=== PATIENT | female | born 1955 | race Caucasian/White ===

== ENCOUNTER → 2020-08-24 10:56 | Outpatient (CLI) | payer MEDICARE, SELFPAY ==
--- NOTE | 2020-08-24 11:00 | ART_ITS ---
Reason For Study: PAD Procedure A bilateral lower extremity continuous wave Doppler with analog waveform analysis,segmental pressures,and ankle brachial indexes without exercise. Left Segmental Pressures Left brachial= 141mmHg. Left posterior tibial artery = 165mmHg. Left dorsalis pedis artery = 166mmHg. Left digit = 92 mmHg. The left dorsalis pedis waveforms are triphasic. The left posterior tibial artery waveforms are triphasic. Right Segmental Pressures Right brachial= 147mmHg. Right posterior tibial artery = 168mmHg. Right dorsalis pedis artery = 168mmHg. Right digit = 69 mmHg. The right dorsalis pedis waveforms are triphasic. The right posterior tibial artery waveforms are triphasic. Indices The right ankle brachial index by the dorsalis pedis is 1.14. The right ankle brachial index by the posterior tibial artery is 1.14. The right digital-brachial index is .47. The left ankle brachial index by the posterior tibial artery is 1.12. The left ankle brachial index by the dorsalis pedis is 1.13. The left digital-brachial index is .63. Interpretation Summary Triphasic Doppler waveforms are noted at ankle level bilaterally. Pulse-volume recordings are diminished at digital level bilaterally, but satisfactory at low-thigh, calf, and ankle levels bilaterally. Resting ankle-brachial indices are normal bilaterally. The right digital-brachial index is moderately diminished. The left digital-brachial index is mildy diminished. Arterial flow appears to be normal at yusuf level bilaterally. There is evidence of moderate, distal, small-vessel arterial occlusive disease at digital level on the right. The is evidence of mild, distal, small-vessel arterial occlusive disease at digital level on the left. Ordering Physician: Rob Randhawa Performed By: KYLEE JUAREZ Judy
== END ==
PROVIDERS: PCP Family Medicine; Referring Provider Podiatrist; Visit Provider Podiatrist
DX: I73.9 Peripheral vascular disease, unspecified (principal)
CPT/HCPCS: 93923

== ENCOUNTER → 2021-12-04 | Outpatient (CLI) | payer MEDICARE, SELFPAY ==
[2021-12-04 15:29] LABS: Absolute Lymphocyte Count 2.22 X10^3/uL (0.83-4.51); Absolute Neutrophil Count 7.3 X10^3/uL (2.0-7.7); Basophil# 0.04 X10^3/uL; Basophil% 0.4 % (0-1); Eosinophil# 0.21 X10^3/uL; Hematocrit 41.4 % (37-47); Lymphocyte # 2.22 X10^3/ul (0.83-4.51); Lymphocyte % 21.3 % (19-41); Mean Corp Hgb Conc 33.8 g/dL (32-36); Mean Corpuscular Hgb 30.9 pg (27.0-32.0); Mean Corpuscular Volume 91.4 fL (81-99); Monocyte# 0.59 X10^3/uL; Monocyte% 5.7 % (0-10); NRBC Flagged by Analyzer 0 % (0-5); Neutrophil # 7.31 X10^3/uL (2.7-7.7); Neutrophil % 70.1 % (47-70); Platelet Count 309 K/mm3 (150-450); RBC Distribution Width SD 40.3 fl (35.1-43.9); Red Blood Count 4.53 M/mm3 (4.2-5.4); White Blood Count 10.4 K/mm3 (4.4-11.0)
[2021-12-04 15:38] LABS: Vitamin B12 734 pg/mL (211-911)
[2021-12-04 15:43] LABS: ALB/GLOB Ratio 1.2 RATIO (0.9-2.4); AST(SGOT) 23 U/L (15-37); Alanine Aminotransfer ALT/SGPT 37 U/L (13-56); Albumin, Serum 4.2 g/dL (3.2-5.0); Alkaline Phosphatase 84 U/L (45-117); Anion Gap 10 (5-15); BUN 14 mg/dL (7-18); BUN/Creat Ratio 16.9 RATIO (10-20); Calcium,Total 9.3 mg/dL (8.5-10.1); Chloride 105 mmol/L (98-107); Cholesterol 167 mg/dL (200); Creatinine, Serum 0.83 mg/dL (0.55-1.02); EST Glomerular Filtration Rate 73 mL/min (>60); Est Glom Filt Rate - Afr Amer 88 mL/min (>60); Ferritin 41 ng/mL (8-252); Globulin 3.5 g/dL (2.2-4.2); Glucose 107 mg/dL (74-106); High Density Lipoprotein 67 mg/dL; Potassium 4.1 mmol/L (3.5-5.1); Protein, Total 7.7 g/dL (6.4-8.2); Sodium Level 140 mmol/L (136-145); Thyroid Stim Hormone (TSH) 1.76 uIU/mL (0.358-3.74); Triglycerides 259 mg/dL; Very Low Density Lipoprotein 52 mg/dL (5-40)
[2021-12-06 23:10] LABS: Hemoglobin A1c 6.4 % (3.8-5.6)
== END | disposition home or self-care (01) ==
LOC: MTLAB 12:45
PROVIDERS: PCP Family Medicine; Referring Provider Family Medicine; Visit Provider Family Medicine
DX: E11.9 Type 2 diabetes mellitus without complications (principal)
CPT/HCPCS: 36415; 80053; 80061; 82607; 82728; 83036; 84443; 85025

== ENCOUNTER → 2022-05-28 | Outpatient (CLI) | payer MEDICARE, SELFPAY ==
[2022-05-28 15:27] LABS: Absolute Lymphocyte Count 1.93 X10^3/uL (0.83-4.51); Absolute Neutrophil Count 5.3 X10^3/uL (2.0-7.7); Basophil# 0.06 X10^3/uL; Basophil% 0.7 % (0-1); Eosinophil# 0.44 X10^3/uL; Eosinophils% 5.3 % (0-5); Hematocrit 42.8 % (37-47); Hemoglobin 13.6 g/dL (12.0-15.0); Lymphocyte # 1.93 X10^3/ul (0.83-4.51); Lymphocyte % 23.4 % (19-41); Mean Corp Hgb Conc 31.8 g/dL (32-36); Mean Corpuscular Hgb 30.6 pg (27.0-32.0); Mean Corpuscular Volume 96.2 fL (81-99); Mean Platelet Vol. 9.9 fl (6.2-12.0); Monocyte# 0.52 X10^3/uL; Monocyte% 6.3 % (0-10); NRBC Flagged by Analyzer 0 % (0-5); Neutrophil # 5.27 X10^3/uL (2.7-7.7); Neutrophil % 64.1 % (47-70); Platelet Count 332 K/mm3 (150-450); RBC Distribution Width CV 12.3 % (11.6-14.6); RBC Distribution Width SD 43.8 fl (35.1-43.9); Red Blood Count 4.45 M/mm3 (4.2-5.4); White Blood Count 8.2 K/mm3 (4.4-11.0)
[2022-05-28 15:45] LABS: Ferritin 47 ng/mL (8-252)
== END | disposition home or self-care (01) ==
LOC: MFPLAB 11:47
PROVIDERS: PCP Family Medicine; Referring Provider Family Medicine; Visit Provider Family Medicine
DX: E61.1 Iron deficiency (principal)
CPT/HCPCS: 36415; 82728; 85025

== ENCOUNTER → 2022-08-28 | Outpatient (CLI) | payer MEDICARE, SELFPAY ==
[2022-08-28 18:08] LABS: Erythrocyte Sedimentation Rate 11 mm/hr (0-30)
[2022-08-28 18:11] LABS: Absolute Lymphocyte Count 1.88 X10^3/uL (0.83-4.51); Absolute Neutrophil Count 5.2 X10^3/uL (2.0-7.7); Basophil# 0.04 X10^3/uL; Basophil% 0.5 % (0-1); Eosinophil# 0.21 X10^3/uL; Eosinophils% 2.7 % (0-5); Hematocrit 42.9 % (37-47); Hemoglobin 13.8 g/dL (12.0-15.0); Lymphocyte # 1.88 X10^3/ul (0.83-4.51); Lymphocyte % 24.1 % (19-41); Mean Corp Hgb Conc 32.2 g/dL (32-36); Mean Corpuscular Hgb 31.1 pg (27.0-32.0); Mean Corpuscular Volume 96.6 fL (81-99); Mean Platelet Vol. 9.9 fl (6.2-12.0); Monocyte# 0.49 X10^3/uL; Monocyte% 6.3 % (0-10); NRBC Flagged by Analyzer 0 % (0-5); Neutrophil # 5.16 X10^3/uL (2.7-7.7); Neutrophil % 66.1 % (47-70); Platelet Count 324 K/mm3 (150-450); RBC Distribution Width CV 12.3 % (11.6-14.6); RBC Distribution Width SD 44.1 fl (35.1-43.9); Red Blood Count 4.44 M/mm3 (4.2-5.4); White Blood Count 7.8 K/mm3 (4.4-11.0)
[2022-08-28 18:46] LABS: Rheumatoid Factor < 10.0 IU/mL (<15)
[2022-08-30 12:22] LABS: CCP IgG Antibodies 5 units (0-19)
[2022-09-04 11:09] LABS: ANTINUCLEAR ANTIBODIES DIRECT Negative (Negative)
== END | disposition home or self-care (01) ==
PROVIDERS: PCP Family Medicine; Referring Provider Family Medicine; Visit Provider Family Medicine
DX: R53.83 Other fatigue (principal)
CPT/HCPCS: 36415; 85025; 85652; 86038; 86140; 86200; 86225; 86235; 86431

== ENCOUNTER → 2022-10-24 | Outpatient (CLI) | payer MEDICARE, SELFPAY ==
--- NOTE | 2022-10-24 12:03 | RAD_ITS ---
INDICATION: PAIN EXAMINATION/TECHNIQUE: X-RAY - RIGHT XR Ankle Min 3 Views 3 VIEWS COMPARISON: FINDINGS: SOFT TISSUES: No soft tissue swelling or gas. No radiopaque foreign body. BONES/JOINTS: Mild plantar calcaneal spurring. No acute fracture or subluxation.. Normal alignment. Preservation of the joint space.. No sclerotic or destructive changes observed. RAD/Ankle min 3 Views IMPRESSION: Mild plantar calcaneal spurring. Electronically Signed: Handy Davidson MD, MEG at 18:46 EDT ,
--- NOTE | 2022-10-24 12:52 | VDLE_ITS ---
Reason For Study: Pain right leg RIGHT LEFT GSV is normal. CFV is compressible, spontaneous, phasic, CFV is compressible, spontaneous, phasic, competent, and demonstrates normal competent and demonstrates normal augmentation. augmentation. FV is compressible, spontaneous, phasic, competent and demonstrates normal augmentation. POP V is compressible, spontaneous, phasic, competent and demonstrates normal augmentation. T/P Trunk is compressible. PTV is compressible. RT PerV is compressible. Procedure This is a venous duplex using B-mode, color flow and spectral Doppler. Exam performed in department. A preliminary report was called and/or faxed to [facility]. VL/Venous Duplex US, Unilateral Interpretation Summary There is no evidence of right lower extremity deep vein thrombosis. Right great saphenous vein appears patent and compressible segmentally. Normal flow patterns left common f emoral vein Ordering Physician: Brandi Tolliver Referring Physician: Ashley Greene Performed By: Elizabeth Jimenez RVT
== END | disposition home or self-care (01) ==
LOC: CVS 12:01
PROVIDERS: PCP Family Medicine; Referring Provider Nurse Practitioner Family; Visit Provider Nurse Practitioner Family
DX: M25.571 Pain in right ankle and joints of right foot (principal); M79.604 Pain in right leg
CPT/HCPCS: 73610; 93971

== ENCOUNTER → 2022-10-31 | Outpatient (CLI) | payer MEDICARE, SELFPAY ==
--- NOTE | 2022-10-31 15:19 | RAD_ITS ---
INDICATION: pain, injury EXAMINATION/TECHNIQUE: X-RAY - RIGHT XR Tibia/Fibula 2 Views 2 VIEWS COMPARISON: FINDINGS: SOFT TISSUES: No soft tissue swelling or gas. No radiopaque foreign body. BONES/JOINTS: No acute fracture or subluxation.. Normal alignment. Preservation of the joint space.. No sclerotic or destructive changes observed. RAD/Tibia & Fibula 2 Views IMPRESSION: Negative. Electronically Signed: Chandra Smith MD at 2:14 EDT ,
== END | disposition home or self-care (01) ==
PROVIDERS: PCP Family Medicine; Referring Provider Nurse Practitioner Family; Visit Provider Nurse Practitioner Family
DX: M79.604 Pain in right leg (principal)
CPT/HCPCS: 73590

== ENCOUNTER → 2022-11-25 | Outpatient (CLI) | payer MEDICARE, SELFPAY ==
[2022-11-25 15:14] LABS: Ferritin 89 ng/mL (8-252)
== END | disposition home or self-care (01) ==
PROVIDERS: PCP Family Medicine; Referring Provider Internal Medicine Pulmonary Disease; Visit Provider Internal Medicine Pulmonary Disease
DX: R53.83 Other fatigue (principal); Z86.2 Personal history of diseases of the blood and blood-forming organs and certain disorders involving the immune mechanism
CPT/HCPCS: 36415; 82728

== ENCOUNTER → 2022-12-16 | Outpatient (CLI) | payer MEDICARE, SELFPAY ==
--- NOTE | 2022-12-16 13:55 | ART_ITS ---
Reason For Study: Bi-lateral PVD Procedure A bilateral lower extremity continuous wave Doppler with analog waveform analysis,segmental pressures,and ankle brachial indexes without exercise. Performed w/ Raynaud's protocol. Left Segmental Pressures Left brachial= 126mmHg. Left posterior tibial artery = 152mmHg. Left dorsalis pedis artery = 144mmHg. Left digit = 104 mmHg. The left posterior tibial artery waveforms are triphasic. The left dorsalis pedis waveforms are triphasic. Right Segmental Pressures Right brachial= 122mmHg. Right posterior tibial artery = 152mmHg. Right dorsalis pedis artery = 149mmHg. Right digit = 112 mmHg. The right posterior tibial artery waveforms are triphasic. The right dorsalis pedis waveforms are triphasic. Indices The right ankle brachial index by the posterior tibial artery is 1.21. The right ankle brachial index by the dorsalis pedis is 1.18. The right digital-brachial index is 0.89. The left ankle brachial index by the posterior tibial artery is 1.21. The left ankle brachial index by the dorsalis pedis is 1.14. The left digital-brachial index is 0.83. VL/Lower Ext Art Exam w/ Exercise Interpretation Summary Right ROYAL 1.21, normal. TBI and Doppler/PVR waveforms of the right leg normal a t rest. Right lower extremity digits with abnormal response to cold immersion Left ROYAL 1.21, normal. TBI and Doppler/PVR waveforms of the left leg normal at rest. Left lower extremity digits with abnormal response to cold immersion Ordering Physician: Lety Lai Referring Physician: RENATE JAMA MD Performed By: Andrea Echavarria T
== END | disposition home or self-care (01) ==
PROVIDERS: PCP Family Medicine; Referring Provider Physician Assistant; Visit Provider Physician Assistant
DX: I73.9 Peripheral vascular disease, unspecified (principal)
CPT/HCPCS: 93924

== ENCOUNTER → 2022-12-26 | Outpatient (CLI) | payer MEDICARE, SELFPAY ==
[2022-12-26 11:25] LABS: Hemoglobin A1c 6.3 % (3.8-5.6)
[2022-12-26 11:29] LABS: ALB/GLOB Ratio 1.1 RATIO (0.9-2.4); AST(SGOT) 22 U/L (15-37); Alanine Aminotransfer ALT/SGPT 37 U/L (13-56); Albumin, Serum 3.8 g/dL (3.2-5.0); Alkaline Phosphatase 67 U/L (45-117); Anion Gap 5 (5-15); BUN 14 mg/dL (7-18); Calcium,Total 8.9 mg/dL (8.5-10.1); Chloride 110 mmol/L (98-107); Cholesterol 180 mg/dL (200); Creatinine, Serum 0.87 mg/dL (0.55-1.02); EST Glomerular Filtration Rate 68 mL/min (>60); Est Glom Filt Rate - Afr Amer 83 mL/min (>60); Globulin 3.6 g/dL (2.2-4.2); Glucose 107 mg/dL (74-106); High Density Lipoprotein 79 mg/dL; Potassium 3.9 mmol/L (3.5-5.1); Protein, Total 7.4 g/dL (6.4-8.2); Sodium Level 140 mmol/L (136-145); Triglycerides 104 mg/dL; Very Low Density Lipoprotein 21 mg/dL (5-40)
[2022-12-26 11:35] LABS: Ferritin 78 ng/mL (8-252)
[2022-12-26 11:35] LABS: Microalbumin,Random Urine < 5.0 mg/L (NO RANGE EST.)
== END | disposition home or self-care (01) ==
LOC: LAB 10:29
PROVIDERS: PCP Family Medicine; Referring Provider Family Medicine; Visit Provider Family Medicine
DX: E11.9 Type 2 diabetes mellitus without complications (principal); E61.1 Iron deficiency
CPT/HCPCS: 36415; 80053; 80061; 82043; 82570; 82728; 83036

== ENCOUNTER → 2023-03-27 | Outpatient (CLI) | payer MEDICARE, SELFPAY ==
[2023-03-27 18:09] LABS: Ferritin 99 ng/mL (8-252)
== END | disposition home or self-care (01) ==
LOC: MTLAB 14:21
PROVIDERS: PCP Family Medicine; Referring Provider Internal Medicine Pulmonary Disease; Visit Provider Internal Medicine Pulmonary Disease
DX: R53.83 Other fatigue (principal); Z86.2 Personal history of diseases of the blood and blood-forming organs and certain disorders involving the immune mechanism
CPT/HCPCS: 36415; 82728

== ENCOUNTER 2023-06-05 14:47 | Outpatient (CLI) | payer SELFPAY ==
--- NOTE | 2023-06-05 14:53 | CT_ITS ---
STUDY: CT CHEST WITHOUT CONTRAST REASON FOR EXAM: Female, 67 years old. FAM HX HEART DISEASE OVERREAD ONLY RADIATION DOSAGE (If Supplied By Facility): CTDIvol = ( 12.19 ) mGy, DLP = ( 219.42 ) mGycm TECHNIQUE: Transaxial imaging was performed without the administration of intravenous contrast material. Individualized dose optimization techniques were used for this CT. COMPARISON: No relevant priors. FINDINGS: CHEST The lungs are normal. There is no demonstrated pleural abnormality. Normal heart and pericardium. Normal mediastinum. Normal hilar regions. Normal unenhanced pulmonary arteries. Normal aorta arch and descending thoracic aorta. Normal osseous structures. There is no demonstrated abnormality of the visualized upper abdomen. CT/Limited Chest CT Cardiac Only IMPRESSION: Normal unenhanced CT chest examination. Electronically Signed: Marshal Benitez MD at 9:48 EST ,
--- OUTSIDE RECORDS SUMMARY | 2023-06-05 15:17 | XMS RPT_ITS | CCD ---
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 0 Active Problems Active Problems Problem Classification Problem Date Documented Da te Episodic/Chronic Anxiety disorders (13 sources) Generalized anxiety disorder; Translations: [Generalized anxiety disorder] 10-28-2017 Chronic Diabetes mellitus without complication (17 sources) Type 2 diabetes mellitus without complication; Translations: [Type 2 diabetes mellitus without complications] Onset: 10-04-2010 Chronic Genitourinary symptoms and ill-defined conditions (13 sources) Incontinence; Translations: [Mixed incontinence] Onset: 06-29-2021 06-29-2021 Chronic Headache; including migraine (15 sources) Migraine; Translations: [Migraine, unspecified, not intractable, without status migrainosus] Onset: 05-24-2016 05-24-2016 Chronic Menopausal disorders (1 source) Atrophic vaginitis; Translations: [Postmenopausal atrophic vaginitis] Chronic Other circulatory disease (13 sources) Raynaud's disease; Translations: [Raynaud's syndrome without gangrene] Onset: 05-26-2018 05-26-2018 Chronic Other inflammatory condition of skin (13 sources) Rosacea; Translations: [Rosacea, unspecified] Onset: 05-24-2016 05-24-2016 Chronic Other nutritional; endocrine; and metabolic disorders (13 sources) Obese class I; Translations: [Obesity, unspecified] Onset: 12-17-2018 12-17-2018 Chronic Other screening for suspected conditions (not mental disorders or infectious disease) (2 sources) Patient encounter status; Translations: [Encounter for screening mammogram for malignant neoplasm of breast] Episodic Thyroid disorders (13 sources) Goiter; Translations: [Iodine-deficiency related diffuse (endemic) goiter] Onset: 12-20-2010 12-20-2010 Chronic Past or Other Problems Problem Classification Problem Date Documented Da te Episodic/Chronic Residual codes; unclassified (13 sources) Statin declined; Translations: [Procedure and treatment not carried out because of patient's decision for unspecified reasons] Onset: 05-22-2021 05-22-2021 Episodic Spondylosis; intervertebral disc disorders; other back problems (13 sources) Brachial radiculitis; Translations: [Radiculopathy, cervical region] Onset: 03-25-2013 07-18-2020 Episodic Results Test Name Value Interpretation Reference Range Facil ity Vital Signs Date Time Vital Sign Value Performing Clinician Faci lity 06-18-2022 15:49-0500 Body height 166.5 cm Amena Torres MD Work Phone: [facility] 06-18-2022 15:49-0500 Body weight 94.53 kg Amena Torres MD Work Phone: [facility] 06-18-2022 15:49-0500 Diastolic blood pressure 84 mm[Hg] Amena Torres MD Work Phone: [facility] 06-18-2022 15:49-0500 Systolic blood pressure 146 mm[Hg] Amena Torres MD Work Phone: [facility] Encounters Encounter Date Encounter Type Care Provider Facility Start: 05-28-2023 ambulatory Pratik Canseco MD Work Phone: [facility] Start: 04-14-2023 Telephone encounter Amena varela MD Work Phone: OB/Gynecology Procedures Date Procedure Procedure Detail Performing Clinician Start: 06-20-2021 Mammography Toño Canseco MD Work Phone: Start: 04-18-2021 Colonoscopy Toño Canseco MD Work Phone: Start: 03-25-2021 Adult depression screening assessment Pratik Canseco MD Work Phone: Plan of Treatment Date Care Activity Detail Author Start: 04-18-[address] [facility] Start: 04-18-2031 COLORECTAL CANCER SCREENING COLORECTAL CANCER SCREENING [facility] Start: 04-18-2031 Screening for malign ant neoplasm of colon [facility] Start: 03-11-2023 ANNUAL PCP TEAM CELL EFFICIENCY SUPERVISOR YVONNE DISEASE VISIT ANNUAL PCP TEAM CHRONIC DISEASE VISIT [facility] Start: 02-07-2023 Covid-19 Vaccine () Covid-19 Vaccine () [facility] Start: 02-07-2023 Influenza vaccination Influenza Vacc ine (#1) [facility] Start: 06-21-2022 ANNUAL PCP TEAM CELL EFFICIENCY SUPERVISOR YVONNE DISEASE VISIT ANNUAL PCP TEAM CHRONIC DISEASE VISIT [facility] Start: 06-21-2022 BP CONTROLLED (<130/80) BP CONTROLLE D (<130/80) [facility] Start: 06-20-[address] [facility] Start: 06-20-2022 Screening for malign ant neoplasm of breast Mammogram Screening [facility] Start: 06-09-2022 ADVANCE DIRECTIVE DISCUSSION ADVANCE DIRECTIVE DISCUSSION [facility] Start: 06-09-2022 DEPRESSION ASSESSMENT DEPRESSION ASS ESSMENT [facility] Start: 05-01-2022 Glaucoma screening Dilated Retinal E xam [facility] Start: 05-01-2022 Hepatitis C antibody , confirmatory test DILATED RETINAL EXAM [facility] Start: 03-26-2022 3 comp foot exam completed DIABETIC FOOT EXAM [facility] Start: 03-26-2022 BP CONTROLLED (<130/80) BP CONTROLLE D (<130/80) [facility] Start: 03-26-2022 Diabetic foot examination Diabetic F oot Exam [facility] Start: 03-26-2022 PNEUMOCOCCAL: 65+ (2 - PCV) PNEUMOCOCCAL: 65+ (2 - PCV) [facility] Immunizations Immunization Date Immunization Notes Care Provider Fa bridget 04-02-2022 influenza virus vaccine, unspecified formulation Amena Torres MD Work Phone: [facility] 03-09-2013 influenza virus vaccine, unspecified formulation Pratik Canseco MD Work Phone: [facility] 10-04-2010 pneumococcal polysaccharide vaccine, 23 valent Pratik Canseco MD Work Phone: [facility] 03-21-2010 influenza virus vaccine, unspecified formulation Pratik Canseco MD Work Phone: [facility] Work Phone: 12-26-2009 tetanus toxoid, redu fran diphtheria toxoid, and acellular pertussis vaccine, adsorbed Pratik Canseco MD Work Phone: [facility] Work Phone: Payers Date Payer Category Payer Unknown [facility] [employer] O [id number] 2022-Present [phone] [address] [place] [address] O [id number] 2022 Unknown [id number] 2019 Medicare UHC AARP MEDICAR E UHC AARP MEDICARE HMO [id number] 2019-Present [phone] [address] [address] [place] [address] [facility] [id number] 2019 Medicare UHC AARP MEDICAR E UHC AARP MEDICARE HMO [id number] 2019-Present [phone] [address] [address] [place] [address] [facility] [id number] Social History Date Type Detail Facility Start: 03-11-2022 Tobacco smoking stat [facility] Never smoked tobacco [facility] Start: 06-21-2021 End: 06-18-2022 Alcohol intake Current non-drinker of alcohol (finding) [facility] Start: 07-14-2020 End: 03-08-2022 History SDOH Alcohol Frequency 1 [facility] Start: 06-14-2020 History SDOH Alcohol Std Drinks 98 [facility] Start: 11-11-2019 End: 07-14-2020 History SDOH Social Connections Phone 5 [facility] Start: 07-14-2020 History SDOH Social Connections Get Together 3 [facility] Start: 07-14-2020 End: 03-08-2022 History SDOH Social Connections Meetings 2 [facility] Start: 06-14-[address] [facility] Start: 1955 Sex Assigned At Not on file [facility] Start: 01-28-2022 End: 02-07-2022 Exposure to SARS-CoV-2 (event) Not sure [facility] Start: 03-11-2022 Tobacco use and exposure Smoke less tobacco non-user [facility] Start: 07-13-2020 End: 07-05-2022 History of Social function [facility] Start: 07-13-2020 End: 07-05-2022 Social connection and isolation panel [facility] Do you belong to any clubs or organizations such as jew groups, unions, fraternal or athletic groups, or school groups? Yes [facility] Are you now , , , , never or living with a partner? [facility] How often to you hav e a drink containing alcohol? Never [facility] Average Number of Drinks Not on file [facility] Work Phone: Do you feel stress - tense, restless, nervous, or anxious, or unable to sleep at night because your mind is troubled all the time - these days [OSQ] Only a little [facility] (I/We) worried wheth er (my/our) food would run out before (I/we) got money to buy more. Never true [facility] In the past 12 month s, was there a time when you were not able to pay the mortgage or rent on time? No [facility] Medical Equipment Procedure Code Equipment Code Equipment Origin al Text Equipment Identifier Dates Start: 02-24-2019 End: 2021 Clinical Notes 06-29-2021 to 05-28-2023 Telephone Encounter - Gisela Jaramillo RN - 04/15/2023 11:32 AM ESTTelephone Encounter - Amena Torres MD - 04/15/2023 11:12 AM ESTTelephone Encounter - Gisela Jaramillo RN - 04/14/2023 3:01 PM EST Note Date & Type Note Facility 05-28-2023 Note Patient Outreach (IN [facility]) MYA GILLETTE ([id number]) 1955 F Date Time Provider Department 05/28/23 PRATIK CANSECO During your visit today, we recorded the following information about you: Allergies As of Date: 05/28/2023 (No Known Allergies) Date Reviewed: 06/18/2022 Reviewed by: Amena Torres MD - Fully Assessed Visit Diagnosis:Encounter for screening mammogram for breast cancer [Z12.31] Order(s):[facility] SCREEN[facility] [[id number]] Order #: [id number] FUTURE Prescriptions as of 06/02/2023 - CPAP - estriol micronized (CPD) Use vaginally 2 times per week. - topiramate (TOPAMAX) 50 mg tablet Take 1 tablet by mouth daily at bedtime. - losartan (COZAAR) 25 mg tablet Take 1 tablet by mouth once daily. - rOPINIRole (REQUIP) 0.25 mg tablet TAKE 1 TO 2 TABLETS BY MOUTH IN THE EVENING - metFORMIN (GLUCOPHAGE) 1,000 mg tablet Take 1 tablet by mouth twice daily with meals. - blood sugar diagnostic (Calysta EnergyUCH VERIO TEST STRIPS) test strip Test blood sugar(s) 1x times daily. Dx: Type 2 DM - Controlled E11.9 Insulin: No - cyclobenzaprine (FLEXERIL) 5 mg tablet Take 1 tablet by mouth twice daily as needed for muscle spasm. - conjugated estrogens (PREMARIN) vaginal cream Use 2 g vaginally two times a week. - ibuprofen (MOTRIN) 200 mg tablet Take 200 mg by mouth every 6 hours as needed. - iron,carb/vit C/vit B12/folic (IRON 100 PLUS ORAL) Take by mouth. - BENEFIBER, WHEAT DEXTRIN, ORAL Take by mouth. - aspirin, enteric coated (ASPIRIN, ENTERIC COATED) 81 mg EC tablet Take 81 mg by mouth once daily. - cholecalciferol, Vitamin D3, (VITAMIN D3) 1,250 mcg (50,000 unit) cap capsule Take 1 capsule by mouth one time a week. - VITAMIN B COMPLEX-100 ORAL Take 1 capsule by mouth. - FLAXSEED ORAL Take by mouth. - lancets (ONE TOUCH DELICA) 33 gauge misc Test blood sugar(s) once daily. Dx: Type 2 DM - Controlled E11.9 Insulin: No - MAGNESIUM CARBONATE ORAL Take 400 mg by mouth. - Coenzyme Q10 (CO Q-10) 200 mg cap Take by mouth. - MULTIVITAMIN ORAL Take by mouth. Problem List As Of Date 05/28/2023 Noted Resolved Diabetes mellitus type 2, controlled, without c*10/04/2010 Thyromegaly [E01.0] 12/20/2010 Other affections of shoulder region, not elsewh*03/25/2013 10/31/2015 Brachial radiculitis [M54.12] 03/25/2013 Essential hypertension [I10] 05/24/2016 12/20/2016 Rosacea [L71.9] 05/24/2016 Migraine without status migrainosus, not intrac*05/24/2016 Generalized anxiety disorder [F41.1] Raynaud's syndrome [I73.00] 05/26/2018 Obesity, Class I, BMI 30-34.9 [E66.9] 12/17/2018 Statin declined [Z53.20] 05/22/2021 Mixed incontinence [N39.46] 06/29/2021 Muscle weakness [M62.81] 06/29/2021 07/31/2021 Encounter Status:Closed by ISSA SELF on 06/02/23 [facility] 04-15-2023 Miscellaneous Notes Form faxed to [facility] Retail pharmacy. Gisela Jaramillo RN Done Amena Torres MD Last annual with [facility] 06/18/22. Needs compounded estriol vaginal cream to [facility] pharmacy. [facility] form to [facility] to complete and sign. Gisela Jaramillo RN documented in this encounter [facility] 06-18-2022 Note HNO ID: [id number] Author: Amena Torres MD Service: ? Author Type: Physician Type: Progress Notes Filed: 06/18/2022 4:41 PM Note Text: Mya is a 66 year old who presents for atrophic vaginitis HPI: She is doing well with vaginal estrogen cream. OB History T3 L3 SAB0 IAB0 Ectopic0 Multiple0 Live Births0 Director Environmental History LMP: 09/10/2010, Postmenopausal Age at Menarche: Age at First : Age at Menopause: Director Environmental History Comments: Sexual Activity: Not Currently; Male; postmenopausal Contraception: No contraception data on record PAST MEDICAL HISTORY Diagnosis Date Arthritis Diabetes mellitus Generalized anxiety disorder H/O: rheumatic fever Iron deficiency anemia Microcalcifications of the breast 12/22/2009 LEFT Migraine Rayna[address]'s syndrome Dr. Sydnee Barragan Statin declined 05/22/2021 PAST SURGICAL HISTORY Procedure Laterality Date BX BREAST PERC VACUUM/ROTN 12/22/2009 CATARACT SURGERY, COMPLEX Bilateral 02/2018 COLONOSCOPY FLX DX W/COLLJ SPEC WHEN PFRMD 12/24/2010 Colonoscopy COLONOSCOPY FLX DX W/COLLJ SPEC WHEN PFRMD 04/18/2021 EYE SURGERY HX FAMILY HISTORY Problem Relation Age of Onset Hypertension Mother Stroke Father causing vision loss Dementia Father Heart Attack Father No Known Problems Sister No Known Problems Sister No Known Problems Sister No Known Problems Sister No Known Problems Brother No Known Problems Brother No Known Problems Brother Cancer Maternal Grandmother ovarian cancer Hypertension Son Hypertension Son Hypertension Son SOCIAL HISTORY Social History Tobacco Use Smoking status: Never Smokeless tobacco: Never Vaping Use Vaping Use: Never used Substance Use Topics Alcohol use: No Drug use: No Allergies and current medication updated:Yes EXAM: BP 146/84 Ht 5' 5.551 (1.67m) Wt 208 lb 6.4 oz (94.5kg) LMP 09/10/2010 BMI 34.10 kg/(m2). GENERAL: pleasant, female in no apparent distress BREAST: soft, non-tender, symmetric, no dominant mass, normal nipple-areolar complex, no lymphadenopathy, and no nipple discharge PELVIC: external genitalia normal, no vulvar lesions, no cervical lesions, normal appearing perineal body and perianal region BIMANUAL: uterus normal size, shape and consistency, no adnexal masses, and non-tender ASSESSMENT/PLAN: 66yo female with atrophic vaginitis Compounded estrogen cream ordered at [facility] pharmacy Mammogram ordered Medical Decision Making: Problems: Low: Stable chronic illness Risk: Moderate: Drug management Medical Decision Making Level: 3 - Low Amena Torres MD [facility] 06-18-2022 History of Presen t illness Narrative Mya is a 66 year old who presents for atrophic vaginitis HPI: She is doing well with vaginal estrogen cream. OB History T3 L3 SAB0 IAB0 Ectopic0 Multiple0 Live Births0 Director Environmental History LMP: 09/10/2010, Postmenopausal Age at Menarche: Age at First : Age at Menopause: Director Environmental History Comments: Sexual Activity: Not Currently; Male; postmenopausal Contraception: No contraception data on record PAST MEDICAL HISTORY Diagnosis Date Arthritis Diabetes mellitus Generalized anxiety disorder H/O: rheumatic fever Iron deficiency anemia Microcalcifications of the breast 12/22/2009 LEFT Migraine Raynaud's syndrome Dr. Sydnee Barragan Statin declined 05/22/2021 PAST SURGICAL HISTORY Procedure Laterality Date BX BREAST PERC VACUUM/ROTN 12/22/2009 CATARACT SURGERY, COMPLEX Bilateral 02/2018 COLONOSCOPY FLX DX W/COLLJ SPEC WHEN PFRMD 12/24/2010 Colonoscopy COLONOSCOPY FLX DX W/COLLJ SPEC WHEN PFRMD 04/18/2021 EYE SURGERY HX FAMILY HISTORY Problem Relation Age of Onset Hypertension Mother Stroke Father causing vision loss Dementia Father Heart Attack Father No Known Problems Sister No Known Problems Sister No Known Problems Sister No Known Problems Sister No Known Problems Brother No Known Problems Brother No Known Problems Brother Cancer Maternal Grandmother ovarian cancer Hypertension Son Hypertension Son Hypertension Son SOCIAL HISTORY Social History Tobacco Use Smoking status: Never Smokeless tobacco: Never Vaping Use Vaping Use: Never used Substance Use Topics Alcohol use: No Drug use: No Allergies and current medication updated:Yes EXAM: BP 146/84 Ht 5' 5.551 (1.67m) Wt 208 lb 6.4 oz (94.5kg) LMP 09/10/2010 BMI 34.10 kg/(m^2). GENERAL: pleasant, female in no apparent distress BREAST: soft, non-tender, symmetric, no dominant mass, normal nipple-areolar complex, no lymphadenopathy, and no nipple discharge PELVIC: external genitalia normal, no vulvar lesions, no cervical lesions, normal appearing perineal body and perianal region BIMANUAL: uterus normal size, shape and consistency, no adnexal masses, and non-tender ASSESSMENT/PLAN: 66yo female with atrophic vaginitis Compounded estrogen cream ordered at [facility] pharmacy Mammogram ordered Medical Decision Making: Problems: Low: Stable chronic illness Risk: Moderate: Drug management Medical Decision Making Level: 3 - Low Amena Torres MD documented in this encounter [facility] 05-20-2022 Miscellaneous Notes Last office visit: 03/11/22 F/u scheduled: none Angie Baeza Ma documented in this encounter [facility] 04-26-2022 Miscellaneous Notes Patient phones requesting refills as follows: Requested Prescriptions Pending Prescriptions Disp Refills losartan (COZAAR) 25 mg tablet 90 tablet 1 Sig: Take 1 tablet by mouth once daily. HUSSAIN 03/11/2022 NOV No future appointment scheduled Please review and advise. MARÍA Aguilera documented in this encounter [facility] 03-01-2022 History of Presen t illness Narrative ACM SAI RN Action/FYI: Chart review completed for Medication Adherence - Statin Use in Patients with Cardiovascular Disease at the request of [employer] ([facility]). No statin order noted. No statin exclusionary criteria clearly identified/coded for 2020. Request: We are bringing this patient to your attention to request you assess/code exclusions or consider moderate-intensity statin at lowest dose and frequency Q48h, MWFS or other - to avoid intolerance and side effects. For patients allergic to, declining statins or who experience myalgia, the following may be helpful: ICD10: T46.6X5A - Allergy to statins ICD10: Z53.20 - Patient declines statin therapy ICD 10: M79.1 - Myalgia due to statin therapy Patient identified by name and date of . The HEDIS Measure, Statin Therapy for Patients with Cardiovascular Disease is based on 2013 [place] college of Card[employer]/[place] [employer] Association (ACC/AHA) guidelines which recommends moderate to high-intensity statin therapy for prevention of ASCVD events. Patient Attributed To: QAE Payer: [facility] Reason for review or outreach: Medication Adherence Medication Adherence Review Details: Diabetes Summary / Findings: See Above Action Taken: Encounter routed to provider Contact made with patient: No, Chart review only. Signature: Mary Anne Leger RN documented in this encounter [facility] 02-19-2022 Miscellaneous Notes Rx faxed. Bryanna Hopkins RN Written order completed to be faxed. Trudi Andersen APRN.CNP [facility] calling for refill of compound estradiol cream for patient. Last annual with [facility] 06/15/21. Prescription form to to complete and sign. Gisela Jaramillo RN documented in this encounter [facility] 02-06-2022 Miscellaneous Notes Patient is due for routine follow-up. Please assist in scheduling. Catherine Barros APRN.CNP Last office visit: 06/21/2021 Next appointment scheduled: Was to follow up in 6 months from 03/26/2021. Not scheduled at this time. Last two office visits do not mention diabetes. Last labs: 03/24/21 HGBA1C 6.3 My Chart message sent asking patient to call and schedule an appointment. Fasting labs will need updated also please order. Patient phones requesting refills as follows: Requested Prescriptions Pending Prescriptions Disp Refills metFORMIN (GLUCOPHAGE) 1,000 mg tablet 180 tablet 1 Sig: Take 1 tablet by mouth twice daily with meals. Please review and advise. Loren Valderrama LPN documented in this encounter [facility] 01-08-2022 Miscellaneous Notes Spoke to pharmacy an they verbalized understanding Debra Mccord Ma Yeah I know that. She has been on a statin in the past and refused to go back on it. She has statin declined listed on her PMH. Diandra- pharmacy tech customer service for , phoned to give recommendation for patient. States it is recommended patient's age 40-75 with diabetes, take a statin medication. documented in this encounter [facility] 2021 Miscellaneous Notes Patient phones requesting refills as follows: Pending Prescriptions Disp Refills ONETOUCH VERIO TEST STRIPS 100 Each 3 Sig: Test blood sugar(s) 1x times daily. Dx: Type 2 DM - Controlled E11.9 Insulin: No RIVERA: No HUSSAIN-06/21/21 Labs-03/24/21 NOV-12/19/21 Please review and advise. Shannon Awad LPN documented in this encounter [facility] 11-13-2021 Miscellaneous Notes Patient has been identified by name and date of : Yes Patient phones for refill(s): Pending Prescriptions Disp Refills TOPIRAMATE 50 MG TABLET 90 tablet 1 Sig: Take 1 tablet by mouth daily at bedtime. RIVERA: No Date of last office visit in primary care: HUSSAIN 06/21/2021 Appointment scheduled for 12/19/2021 Last 2 Encounter Wt Readings: Date: Wt: 06/21/2021 93 kg (205 lb) 06/15/2021 93.4 kg (205 lb 12.8 oz) Please advise. Thank you. MARÍA Cole documented in this encounter [facility] 11-07-2021 History of Presen t illness Narrative Patient was notified Debra Mccord Ma Labs updated and ordered. [facility] NAVIGATION OUTREACH Action/FYI Spoke with patient. Patient is on [facility] for the following HM care gaps: DILATED RETINAL EXAM - Last exam done in April [address] Bijan Cisse. Patient will request the office fax the results to Dr. Canseco. HBA1C - Please file pending order and add any orders required or preferred and notify me when signed so the patient can be informed. ADVANCE DIRECTIVE DISCUSION - Link sent via [employer] as requested. Pt identified by name and : YES, via phone Outreach Outcome/Action Spoke to patient or caregiver: No action required (information or reminder only) Kleo message sent Advance Directives sent Did you use a PCP flex slot to schedule this appointment? N/A Reason for Outreach Care Gap or Scheduling/Wellness visits Payer: Payor: [facility] [facility] [employer] / Plan: [employer] [facility] [employer] HMO / Product Type: HMO / Care Gap Reviewed:: Diabetic Eye Exam HBA1C Reminder: Reminder note to check Health Maintenance for items below Health Maintenance items due: DTAP,TDAP,TD(2 - Td or Tdap) due on 12/27/2019 DILATED RETINAL EXAM due on 01/16/2021 ADVANCE DIRECTIVE DISCUSSION Never done URINE ALBUMIN:CREATININE RATIO due on 07/14/2021 LDL CHOLESTEROL due on 07/14/2021 COVID-19 VACCINE(4 - Booster for Moderna series) due on 09/12/2021 HBA1C due on 09/22/2021 Message Sent to Practice: Yes Navigation Signature: Jessi Hart MA November 07, 2021 8:04 AM documented in this encounter [facility] 10-25-2021 Miscellaneous Notes Patient has been identified by name and date of : Yes Patient phones for refill(s): Pending Prescriptions Disp Refills LOSARTAN 25 MG TABLET 90 tablet 1 Sig: Take 1 tablet by mouth once daily. RIVERA: No Date of last office visit in primary care: 06/21/21 Please advise. Thank you. Lucy Portillo LPN documented in this encounter [facility] documented as of this encounter (statuses as of 10/25/2021) [facility]01[facility]2022 History of Past illness Narrative* Problem Noted Date Resolved Date Muscle weakness 06/29/2021 07/31/2021 Essential hypertension 05/24/2016 7 Other affections of shoulder region, not elsewhere classified 03/25/2013 10/31/2015 documented as of this encounter (statuses as of 11/07/2021) [facility] History of Past illness Narrative* Problem Noted Date Resolved Date Muscle weakness 06/29/2021 07/31/2021 Essential hypertension 05/24/2016 7 Other affections of shoulder region, not elsewhere classified 03/25/2013 10/31/2015 documented as of this encounter (statuses as of 11/13/2021) [address]21-2022 History of Past illness Narrative* Problem Noted Date Resolved Date Muscle weakness 06/29/2021 07/31/2021 Essential hypertension 05/24/2016 7 Other affections of shoulder region, not elsewhere classified 03/25/2013 10/31/2015 documented as of this encounter (statuses as of 2021) [address]21-2022 History of Past illness Narrative* Problem Noted Date Resolved Date Muscle weakness 06/29/2021 07/31/2021 Essential hypertension 05/24/2016 7 Other affections of shoulder region, not elsewhere classified 03/25/2013 10/31/2015 documented as of this encounter (statuses as of 01/08/2022) [facility] History of Past illness Narrative* Problem Noted Date Resolved Date Muscle weakness 06/29/2021 07/31/2021 Essential hypertension 05/24/2016 7 Other affections of shoulder region, not elsewhere classified 03/25/2013 10/31/2015 documented as of this encounter (statuses as of 02/06/2022) [facility] History of Past illness Narrative* Problem Noted Date Resolved Date Muscle weakness 06/29/2021 07/31/2021 Essential hypertension 05/24/2016 7 Other affections of shoulder region, not elsewhere classified 03/25/2013 10/31/2015 documented as of this encounter (statuses as of 02/19/2022) [address]21-2022 History of Past illness Narrative* Problem Noted Date Resolved Date Muscle weakness 06/29/2021 07/31/2021 Essential hypertension 05/24/2016 7 Other affections of shoulder region, not elsewhere classified 03/25/2013 10/31/2015 documented as of this encounter (statuses as of 04/01/2022) [address]21-2022 History of Past illness Narrative* Problem Noted Date Resolved Date Muscle weakness 06/29/2021 07/31/2021 Essential hypertension 05/24/2016 7 Other affections of shoulder region, not elsewhere classified 03/25/2013 10/31/2015 documented as of this encounter (statuses as of 04/26/2022) [facility] History of Past illness Narrative* Problem Noted Date Resolved Date Muscle weakness 06/29/2021 07/31/2021 Essential hypertension 05/24/2016 7 Other affections of shoulder region, not elsewhere classified 03/25/2013 10/31/2015 documented as of this encounter (statuses as of 05/20/2022) [facility] History of Past illness Narrative* Problem Noted Date Resolved Date Muscle weakness 06/29/2021 07/31/2021 Essential hypertension 05/24/2016 7 Other affections of shoulder region, not elsewhere classified 03/25/2013 10/31/2015 documented as of this encounter (statuses as of 06/19/2022) [facility] History of Past illness Narrative* Problem Noted Date Diagnosed Date Resolved Date Muscle weakness 06/29/2021 07/31/2021 Essential hypertension 05/24/201612/20 Other affections of shoulder region, not elsewhere classified 03/25/2013 10/31/2015 documented as of this encounter (statuses as of 04/16/2023) [facility] History of Past illness Narrative* Problem Noted Date Diagnosed Date Resolved Date Muscle weakness 06/29/2021 07/31/2021 Essential hypertension 05/24/201612/20 Other affections of shoulder region, not elsewhere classified 03/25/2013 10/31/2015 documented as of this encounter (statuses as of 06/02/2023) [facility] Diagnosis Controlled type 2 diabetes mellitus without complication, without long-term current use of insulin (HCC) [facility] Diagnosis Controlled type 2 diabetes mellitus without complication, without long-term current use of insulin (HCC)- Primary [facility] Diagnosis Migraine without status migrainosus, not intractable, unspecified migraine type [facility] Diagnosis Controlled type 2 diabetes mellitus without complication, without long-term current use of insulin (HCC) [facility] Diagnosis Postmenopausal atrophic vaginitis- Primary Encounter for screening mammogram for malignant neoplasm of breast Other screening mammogram Encounter for gynecological examination (general) (routine) without abnormal findings [facility] Diagnosis Encounter for screening mammogram for breast cancer documented in this encounter [facility] [place] for referral (narrative)* Diagnostic Procedure Only (Routine) - Pending Review Specialty Diagnoses / Procedures Referred By Contac t Referred To Contact [facility] Diagnoses Encounter for screening mammogram for malignant neoplasm of breast Procedures COLT SCREENING SCREENING MAMMOGRAPHY BI 2-VIEW BREAST INC Amena Hinojosa MD [address] [place] [address] [facility] [address] [place] [address] Referral ID Status Reason Start Date Expiration Date Visits Requested Visits Authorized [id number] Pending Review Auto-Generat ed Referral 06/18/2022 07/18/2023 1 1 [facility] [place] for referral (narrative)* Diagnostic Procedure Only (Routine) - Pending Review Specialty Diagnoses / Procedures Referred By Contac t Referred To Contact [facility] Diagnoses Encounter for screening mammogram for breast cancer Procedures COLT SCREENING SCREENING MAMMOGRAPHY BI 2-[place] [address] [place] [id number] [facility] [address] [place] [address] Referral ID Status Reason Start Date Expiration Date Visits Requested Visits Authorized [id number] Pending Review Auto-Generat ed Referral 3 06/26/2024 1 1 [facility] Summary Purpose Family History No Family History Records FoundNo Family History Records Found Advance Directives No Advanced Directives Records FoundDocuments on File Type Date 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 the event this information is protected by the Federal Confidentiality of Alcohol and Drug Abuse Patient Records regulations: The Federal rules restrict any use of the information to criminally investigate or prosecute any alcohol or drug abuse patient.[facility] the event this information is protected by the Federal Confidentiality of Alcohol and Drug Abuse Patient Records regulations: The Federal rules restrict any use of the information to criminally investigate or prosecute any alcohol or drug abuse patient.[facility] the event this information is protected by the Federal Confidentiality of Alcohol and Drug Abuse Patient Records regulations: The Federal rules restrict any use of the information to criminally investigate or prosecute any alcohol or drug abuse patient.[facility] the event this information is protected by the Federal Confidentiality of Alcohol and Drug Abuse Patient Records regulations: The Federal rules restrict any use of the information to criminally investigate or prosecute any alcohol or drug abuse patient.[facility] the event this information is protected by the Federal Confidentiality of Alcohol and Drug Abuse Patient Records regulations: The Federal rules restrict any use of the information to criminally investigate or prosecute any alcohol or drug abuse patient.[facility] the event this information is protected by the Federal Confidentiality of Alcohol and Drug Abuse Patient Records regulations: The Federal rules restrict any use of the information to criminally investigate or prosecute any alcohol or drug abuse patient.[facility] the event this information is protected by the Federal Confidentiality of Alcohol and Drug Abuse Patient Records regulations: The Federal rules restrict any use of the information to criminally investigate or prosecute any alcohol or drug abuse patient.[facility] the event this information is protected by the Federal Confidentiality of Alcohol and Drug Abuse Patient Records regulations: The Federal rules restrict any use of the information to criminally investigate or prosecute any alcohol or drug abuse patient.[facility] the event this information is protected by the Federal Confidentiality of Alcohol and Drug Abuse Patient Records regulations: The Federal rules restrict any use of the information to criminally investigate or prosecute any alcohol or drug abuse patient.[facility] the event this information is protected by the Federal Confidentiality of Alcohol and Drug Abuse Patient Records regulations: The Federal rules restrict any use of the information to criminally investigate or prosecute any alcohol or drug abuse patient.[facility] the event this information is protected by the Federal Confidentiality of Alcohol and Drug Abuse Patient Records regulations: The Federal rules restrict any use of the information to criminally investigate or prosecute any alcohol or drug abuse patient.[facility] the event this information is protected by the Federal Confidentiality of Alcohol and Drug Abuse Patient Records regulations: The Federal rules restrict any use of the information to criminally investigate or prosecute any alcohol or drug abuse patient.[facility] Reason for Visit (unrecogniz ed section and content) Reason Onset Date Comments Population Health Navigation Outreach 11/07/2021 [facility] Care Gaps Reason Onset Date Comments Refill Request 11/13/2021 Reason Onset Date Comments Refill Request 2021 Reason Comments Diabetes recommendation Reason Onset Date Comments Refill Request 02/06/2022 Reason Comments Refill Request Reason Onset Date Comments ACM SAI RN 03/01/2022 SPC/SUPD rev. 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 Start Date End Date Pratik Canseco MD [address] [place], [place] [id number] PCP - General Family Practice 12/20/16 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 Relationship 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 Start Date End Date Pratik Canseco MD [address] [place] [address] PCP - General Family Practice 12/20/16 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 Relationship Specialty Start Date End Date Pratik Canseco MD [address] [place] [address] PCP - General Family Medicine 12/20/16 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 Relationship Specialty Start Date End Date Pratik Canseco MD [address] [place] [address] PCP - General Family Medicine 12/20/16 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 This clinical summary was aggregated from multiple sources. Caution should be exercised in using it in the provision of clinical care. This summary normalizes information from multiple sources, and as a consequence, information in this document may materially change the coding, format and clinical context of patient data. In addition, data may be omitted in some cases. CLINICAL DECISIONS SHOULD BE BASED ON THE PRIMARY CLINICAL RECORDS. [facility] [employer] [facility]. provides no warranty or guarantee of the accuracy or completeness of information in this document.
--- NOTE | 2023-06-10 06:45 | CA.SCORE ---
Calcium Scoring Date of Study:: 06/05/23 Indications Indications: Family history of coronary disease Coronary Calcium Scoring: High-resolution Computed Tomographic imaging of the chest was performed on [06/05/2023], with particular attention paid to the coronary arteries. Images from the examination were analyzed for the presence and extent of coronary artery calcification , using coronary calcium quantification software. The patient tolerated the procedure well and there were no complications. The results of the coronary calcification analysis are provided below. Findings Coronary Artery Left Main (LM): 0 Left Anterior Descending (LAD): 0 Left Circumflex (LCX): 0 Right Coronary Artery (RCA): 0 Total Agatston Score: 0 Percentile Rankin Calcium Scoring Interpretation: Different methods to categorize the overall amount of coronary plaque. Overall amount CAC SIS Visual of coronary plaque P1 Mild -100 <2 1-2 vessels with mild amount of plaque P2 Moderate 101-300 3-4 1-2 vessels with moderate amount, 3 vessels with mild amount of plaque P3 Severe 301-999 5-7 3 vessels with moderate amount, 1 vessel with severe amount of plaque P4 Extensive >1000 >8 2-3 vessels with severe amount of plaque Conclusion: No significant atherosclerotic plaquing noted.
== END 2023-06-05 23:59 | disposition home or self-care (01) ==
LOC: CT 14:50
PROVIDERS: PCP Family Medicine; Referring Provider Family Medicine; Visit Provider Family Medicine
DX: E66.9 Obesity, unspecified (principal); E11.9 Type 2 diabetes mellitus without complications; Z82.49 Family history of ischemic heart disease and other diseases of the circulatory system
CPT/HCPCS: 75571; 76380

== ENCOUNTER 2023-07-01 15:20 | Outpatient (CLI) | payer MEDICARE, SELFPAY ==
--- OUTSIDE RECORDS SUMMARY | 2023-07-01 15:56 | XMS RPT_ITS | CCD ---
Author Name Unknown Address [address] [place] [address] Organization [facility] Care Team Providers Care Bulb Packer Name Role Phone Pratik Canseco MD Primary [...] 166.5 cm Amena Torres MD Work Phone: [facility] 06-18-2022 15:49-0500 Body weight 94.53 kg Amena Torres MD Work Phone: [facility] 06-18-2022 15:49-0500 Diastolic blood pressure 84 mm[Hg] Amena Torres MD Work Phone: [facility] 06-18-2022 15:49-0500 Systolic blood pressure 146 mm[Hg] Amena Torres MD Work Phone: [facility] Encounters Encounter Date Encounter Type Care Provider Facility Start: 05-28-2023 ambulatory Pratik Canseco MD Work Phone: Internal Medicine [facility] [place] Start: 04-14-2023 Telephone encounter Amena varela MD Work Phone: OB/Gynecology Procedures Date Procedure Procedure Detail Performing Clinician Start: 06-20-2021 Mammography Toño Canseco MD Work Phone: Start: 04-18-2021 Colonoscopy Toño Canseco MD Work Phone: Start: 03-25-2021 Adult depression screening assessment Pratik Canseco MD Work Phone: Plan of Treatment Date Care Activity Detail Author Start: 04-18-2031 Colonoscopy COLONOSCOPY [facility] Start: 04-18-2031 COLORECTAL CANCER SCREENING COLORECTAL CANCER SCREENING [facility] Start: 04-18-2031 Screening for malign ant neoplasm of colon [facility] Start: 03-11-2023 ANNUAL PCP TEAM PEST CONTROL SERVICE SALES AGENT YVONNE DISEASE VISIT ANNUAL PCP TEAM CHRONIC DISEASE VISIT [facility] Start: 02-07-2023 Covid-19 Vaccine () Covid-19 Vaccine () [facility] Start: 02-07-2023 Influenza vaccination Influenza Vacc ine (#1) [facility] Start: 06-21-2022 ANNUAL PCP TEAM PEST CONTROL SERVICE SALES AGENT YVONNE DISEASE VISIT ANNUAL PCP TEAM CHRONIC DISEASE VISIT [facility] Start: 06-21-2022 BP CONTROLLED (<130/80) BP CONTROLLE D (<130/80) [facility] Start: 06-20-2022 Mammography [facility] Start: 06-20-2022 Screening for malign ant neoplasm of breast Mammogram Screening [facility] Start: 06-09-2022 ADVANCE DIRECTIVE DISCUSSION ADVANCE DIRECTIVE DISCUSSION [facility] Start: 06-09-2022 DEPRESSION ASSESSMENT DEPRESSION ASS ESSMENT [facility] Start: 05-01-2022 Glaucoma screening Dilated Retinal E xam [facility] Start: 05-01-2022 Hepatitis C antibody , confirmatory test DILATED RETINAL EXAM [facility] Start: 03-26-2022 3 comp foot exam completed DIABETIC FOOT EXAM [facility] Start: 03-26-2022 BP CONTROLLED (<130/80) BP CONTROLLE D (<130/80) [facility] Start: 03-26-2022 Diabetic foot examination Diabetic F oot Exam [facility] Start: 03-26-2022 PNEUMOCOCCAL: 65+ (2 - PCV) PNEUMOCOCCAL: 65+ (2 - PCV) [facility] Immunizations Immunization Date Immunization Notes Care Provider Fa bridget 04-02-2022 influenza virus vaccine, unspecified formulation Amena Torres MD Work Phone: [facility] 03-09-2013 influenza virus vaccine, unspecified formulation Pratik Canseco MD Work Phone: [facility] 10-04-2010 pneumococcal polysaccharide vaccine, 23 valent Pratik Canseco MD Work Phone: [facility] 03-21-2010 influenza virus vaccine, unspecified formulation Pratik Canseco MD Work Phone: [facility] Work Phone: 12-26-2009 tetanus toxoid, redu fran diphtheria toxoid, and acellular pertussis vaccine, adsorbed Pratik Canseco MD Work Phone: [facility] Work Phone: Payers Date Payer Category Payer Unknown [facility] [employer] MEDIBLUE O [id number] 2022-Present [phone] [address] [place] [address] O [id number] 2022 Unknown [id number] 2019 Medicare UHC AARP MEDICAR E UHC AARP MEDICARE HMO [id number] 2019-Present [phone] [address] [address] [place] [address] [facility] [id number] 2019 Medicare UHC AARP MEDICAR E UHC AARP MEDICARE HMO [id number] 2019-Present [phone] [address] [address] [place] [address] [facility] [id number] Social History Date Type Detail Facility Start: 03-11-2022 Tobacco smoking stat [facility] Never smoked tobacco [facility] Start: 06-21-2021 End: 06-18-2022 Alcohol intake Current non-drinker of alcohol (finding) [facility] Start: 07-14-2020 End: 03-08-2022 History SDOH Alcohol Frequency 1 [facility] Start: 06-14-2020 History SDOH Alcohol Std Drinks 98 [facility] Start: 11-11-2019 End: 07-14-2020 History SDOH Social Connections Phone 5 [facility] Start: 07-14-2020 History SDOH Social Connections Get Together 3 [facility] Start: 07-14-2020 End: 03-08-2022 History SDOH Social Connections Meetings 2 [facility] Start: 06-14-2019 Education 15 [facility] Start: 1955 Sex Assigned At Not on file [facility] Start: 01-28-2022 End: 02-07-2022 Exposure to SARS-CoV-2 (event) Not sure [facility] Start: 03-11-2022 Tobacco use and exposure Smoke less tobacco non-user [facility] Start: 07-13-2020 End: 07-05-2022 History of Social function [place] Start: 07-13-2020 End: 07-05-2022 Social connection and isolation panel [facility] Do you belong to any clubs or organizations such as orthodox groups, unions, fraternal or athletic groups, or school groups? Yes [facility] Are you now , , , , never or living with a partner? [facility] How often to you hav e a drink containing alcohol? Never [facility] Average Number of Drinks Not on file [facility] Work Phone: Do you feel stress - tense, restless, nervous, or anxious, or unable to sleep at night because your mind is troubled all the time - these days [OSQ] Only a little [facility] (I/We) worried wheth er (my/our) food would run out before (I/we) got money to buy more. Never true [facility] In the past 12 month s, was there a time when you were not able to pay the mortgage or rent on time? No [facility] Medical Equipment Procedure Code Equipment Code Equipment [...] Note Patient Outreach (IN TMMN) MYA GILLETTE ([id number]) 1955 F Date Time Provider Department 05/28/23 PRATIK CANSECO During your visit today, we recorded the following information about you: Allergies As of Date: 05/28/2023 (No Known Allergies) Date Reviewed: 06/18/2022 Reviewed by: Amena Torres MD - Fully Assessed Visit Diagnosis:Encounter for screening mammogram for breast cancer [Z12.31] Order(s):[facility] SCREENING [[id number]] Order #: [id number] FUTURE Prescriptions as of 06/02/2023 - CPAP [...] daily with meals. - blood sugar diagnostic ([employer] Technologies[employer]CH VERIO TEST STRIPS) test strip Test blood [...] Encounter Status:Closed by ISSA SELF on 06/02/23 [facility] 04-15-2023 Miscellaneous Notes Form faxed to [facility] Retail pharmacy. Gisela Jaramillo RN Done Amena Torres MD Last annual with [facility] 06/18/22. Needs compounded estriol vaginal cream to [facility] pharmacy. [facility] form to [facility] to complete and sign. Gisela Jaramillo RN documented in this encounter [facility] 06-18-2022 Note HNO ID: [id number] Author: Amena Torres MD Service: ? Author Type: Physician Type: Progress Notes Filed: 06/18/2022 4:41 PM Note Text: Mya is a 66 year old who presents for atrophic vaginitis HPI: She is doing well with vaginal estrogen cream. OB History T3 L3 SAB0 IAB0 Ectopic0 Multiple0 Live Births0 Soda Dispenser History LMP: 09/10/2010, Postmenopausal Age at Menarche: Age at First : Age at Menopause: Soda Dispenser History Comments: Sexual Activity: Not Currently; Male; [...] atrophic vaginitis Compounded estrogen cream ordered at [facility] pharmacy Mammogram ordered Medical Decision Making: Problems: Low: Stable chronic illness Risk: Moderate: Drug management Medical Decision Making Level: 3 - Low Amena Torres MD [facility] 06-18-2022 History of Presen t illness Narrative Mya is a 66 year old who presents for atrophic vaginitis HPI: She is doing well with vaginal estrogen cream. OB History T3 L3 SAB0 IAB0 Ectopic0 Multiple0 Live Births0 Soda Dispenser History LMP: 09/10/2010, Postmenopausal Age at Menarche: Age at First : Age at Menopause: Soda Dispenser History Comments: Sexual Activity: Not Currently; Male; [...] atrophic vaginitis Compounded estrogen cream ordered at [facility] pharmacy Mammogram ordered Medical Decision Making: Problems: Low: Stable chronic illness Risk: Moderate: Drug management Medical Decision Making Level: 3 - Low Amena Torres MD documented in this encounter [facility] 05-20-2022 Miscellaneous Notes Last office visit: 03/11/22 F/u scheduled: none Angie Baeza Ma documented in this encounter [facility] 04-26-2022 Miscellaneous Notes Patient phones requesting refills as follows: Requested Prescriptions Pending Prescriptions Disp Refills losartan (COZAAR) 25 mg tablet 90 tablet 1 Sig: Take 1 tablet by mouth once daily. HUSSAIN 03/11/2022 NOV No future appointment scheduled Please review and advise. MARÍA Aguilera documented in this encounter [facility] 03-01-2022 History of Presen t illness Narrative ACM SAI RN Action/FYI: Chart review completed for Medication Adherence - Statin Use in Patients with Cardiovascular Disease at the request of [employer] ([facility] No statin order noted. No statin exclusionary [...] with Cardiovascular Disease is based on 2013 [place] [employer]/[place] [employer] Association (ACC/AHA) guidelines which recommends moderate to high-intensity statin therapy for prevention of ASCVD events. Patient Attributed To: QAE Payer: [facility] Reason for review or outreach: Medication Adherence Medication Adherence Review Details: Diabetes Summary / Findings: See Above Action Taken: Encounter routed to provider Contact made with patient: No, Chart review only. Signature: Mary Anne Leger RN documented in this encounter [facility] 02-19-2022 Miscellaneous Notes Rx faxed. Bryanna Hopkins RN Written order completed to be faxed. Trudi Andersen APRN.CNP [facility] calling for refill of compound estradiol cream for patient. Last annual with [facility] 06/15/21. Prescription form to to complete and sign. Gisela Jaramillo RN documented in this encounter [facility] 02-06-2022 Miscellaneous Notes Patient is due for [...] Loren Valderrama LPN documented in this encounter [facility] 01-08-2022 Miscellaneous Notes Spoke to pharmacy an they verbalized understanding Debra Mccord Ma Yeah I know that. She has been on a statin in the past and refused to go back on it. She has statin declined listed on her PMH. Diandra- internet marketing assistant for , phoned to give recommendation for patient. States it is recommended patient's age 40-75 with diabetes, take a statin medication. documented in this encounter [facility] 2021 Miscellaneous Notes Patient phones requesting refills as follows: Pending Prescriptions Disp Refills ONETOUCH VERIO TEST STRIPS 100 Each 3 Sig: Test blood sugar(s) 1x times daily. Dx: Type 2 DM - Controlled E11.9 Insulin: No RIVERA: No HUSSAIN-06/21/21 Labs-03/24/21 NOV-12/19/21 Please review and advise. Shannon Awad LPN documented in this encounter [facility] 11-13-2021 Miscellaneous Notes Patient has been identified [...] you. MARÍA Cole documented in this encounter [facility] 11-07-2021 History of Presen t illness Narrative Patient was notified Debra Mccord Ma Labs updated and ordered. POPULATION HEALTH NAVIGATION OUTREACH Action/FYI Spoke with patient. Patient is on [facility] for the following HM care gaps: DILATED RETINAL EXAM - Last exam done in April [address] Bijan Cisse. Patient will request the office fax the results to Dr. Canseco. HBA1C - Please file pending order and add any orders required or preferred and notify me when signed so the patient can be informed. ADVANCE DIRECTIVE DISCUSION - Link sent via [employer] as requested. Pt identified by name and : YES, via phone Outreach Outcome/Action Spoke to patient or caregiver: No action required (information or reminder only) [facility] message sent Advance Directives sent Did you use a PCP flex slot to schedule this appointment? N/A Reason for Outreach Care Gap or Scheduling/Wellness visits Payer: Payor: [facility] MEDICARE / Plan: [facility] MEDICARE HMO / Product Type: HMO / [...] 2021 8:04 AM documented in this encounter [facility] 10-25-2021 Miscellaneous Notes Patient has been identified by name and date of : Yes Patient phones for refill(s): Pending Prescriptions Disp Refills LOSARTAN 25 MG TABLET 90 tablet 1 Sig: Take 1 tablet by mouth once daily. RIVERA: No Date of last office visit in primary care: 06/21/21 Please advise. Thank you. Lucy Portillo LPN documented in this encounter [facility] documented as of this encounter (statuses as of 10/25/2021) [facility] History of Past illness Narrative* Problem Noted Date Resolved Date Muscle weakness 06/29/2021 07/31/2021 Essential hypertension 05/24/2016 7 Other affections of shoulder region, not elsewhere classified 03/25/2013 10/31/2015 documented as of this encounter (statuses as of 11/07/2021) [facility] History of Past illness Narrative* Problem Noted Date Resolved Date Muscle weakness 06/29/2021 07/31/2021 Essential hypertension 05/24/2016 7 Other affections of shoulder region, not elsewhere classified 03/25/2013 10/31/2015 documented as of this encounter (statuses as of 11/13/2021) [address]21-2022 History of Past illness Narrative* Problem Noted Date Resolved Date Muscle weakness 06/29/2021 07/31/2021 Essential hypertension 05/24/2016 7 Other affections of shoulder region, not elsewhere classified 03/25/2013 10/31/2015 documented as of this encounter (statuses as of 2021) [address]21-2022 History of Past illness Narrative* Problem Noted Date Resolved Date Muscle weakness 06/29/2021 07/31/2021 Essential hypertension 05/24/2016 7 Other affections of shoulder region, not elsewhere classified 03/25/2013 10/31/2015 documented as of this encounter (statuses as of 01/08/2022) [facility] History of Past illness Narrative* Problem Noted Date Resolved Date Muscle weakness 06/29/2021 07/31/2021 Essential hypertension 05/24/2016 7 Other affections of shoulder region, not elsewhere classified 03/25/2013 10/31/2015 documented as of this encounter (statuses as of 02/06/2022) [facility] History of Past illness Narrative* Problem Noted Date Resolved Date Muscle weakness 06/29/2021 07/31/2021 Essential hypertension 05/24/2016 7 Other affections of shoulder region, not elsewhere classified 03/25/2013 10/31/2015 documented as of this encounter (statuses as of 02/19/2022) [address]22 History of Past illness Narrative* Problem Noted Date Resolved Date Muscle weakness 06/29/2021 07/31/2021 Essential hypertension 05/24/2016 7 Other affections of shoulder region, not elsewhere classified 03/25/2013 10/31/2015 documented as of this encounter (statuses as of 04/01/2022) [address]22 History of Past illness Narrative* Problem Noted Date Resolved Date Muscle weakness 06/29/2021 07/31/2021 Essential hypertension 05/24/2016 7 Other affections of shoulder region, not elsewhere classified 03/25/2013 10/31/2015 documented as of this encounter (statuses as of 04/26/2022) [facility] History of Past illness Narrative* Problem Noted Date Resolved Date Muscle weakness 06/29/2021 07/31/2021 Essential hypertension 05/24/2016 7 Other affections of shoulder region, not elsewhere classified 03/25/2013 10/31/2015 documented as of this encounter (statuses as of 05/20/2022) [facility] History of Past illness Narrative* Problem Noted Date Resolved Date Muscle weakness 06/29/2021 07/31/2021 Essential hypertension 05/24/2016 7 Other affections of shoulder region, not elsewhere classified 03/25/2013 10/31/2015 documented as of this encounter (statuses as of 06/19/2022) [facility] History of Past illness Narrative* Problem Noted Date Diagnosed Date Resolved Date Muscle weakness 06/29/2021 07/31/2021 Essential hypertension 05/24/201612/20 Other affections of shoulder region, not elsewhere classified 03/25/2013 10/31/2015 documented as of this encounter (statuses as of 04/16/2023) [facility] History of Past illness Narrative* Problem Noted Date Diagnosed Date Resolved Date Muscle weakness 06/29/2021 07/31/2021 Essential hypertension 05/24/201612/20 Other affections of shoulder region, not elsewhere classified 03/25/2013 10/31/2015 documented as of this encounter (statuses as of 06/02/2023) [facility] Diagnosis Controlled type 2 diabetes mellitus without complication, without long-term current use of insulin (HCC) [facility] Diagnosis Controlled type 2 diabetes mellitus without complication, without long-term current use of insulin (HCC)- Primary [facility] Diagnosis Migraine without status migrainosus, not intractable, unspecified migraine type [facility] Diagnosis Controlled type 2 diabetes mellitus without complication, without long-term current use of insulin (HCC) [facility] Diagnosis Postmenopausal atrophic vaginitis- Primary Encounter for screening mammogram for malignant neoplasm of breast Other screening mammogram Encounter for gynecological examination (general) (routine) without abnormal findings [facility] Diagnosis Encounter for screening mammogram for breast cancer documented in this encounter [facility] for referral (narrative)* Diagnostic Procedure Only (Routine) - Pending Review Specialty Diagnoses / Procedures Referred By Contac t Referred To Contact [facility] Diagnoses Encounter for screening mammogram for malignant neoplasm of breast Procedures COLT SCREENING SCREENING MAMMOGRAPHY BI 2-VIEW BREAST INC Amena Hinojosa MD [address] [place] [address] [facility] [address] [place] [address] Referral ID Status Reason Start Date Expiration Date Visits Requested Visits Authorized [id number] Pending Review Auto-Generat ed Referral 06/18/2022 07/18/2023 1 1 [facility] for referral (narrative)* Diagnostic Procedure Only (Routine) - Pending Review Specialty Diagnoses / Procedures Referred By Contac t Referred To Contact [facility] Diagnoses Encounter for screening mammogram for breast cancer Procedures COLT SCREENING SCREENING MAMMOGRAPHY BI 2-[place] [address] [place] [address] [facility] [address] [address] Referral ID Status Reason Start Date Expiration Date Visits Requested Visits Authorized [id number] Pending Review Auto-Generat ed Referral 3 06/26/2024 1 1 [facility] Summary Purpose Family History No Family History Records FoundNo Family History Records Found Advance Directives No Advanced Directives Records FoundDocuments on File Type Date Recorded 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 Advance Directive(s) 04/18/2021 7:20 AM Advance Directive(s) 03/30/2021 9:38 AM Additional Source Comments INFORMATION SOURCE (unrecogn ized section and content) DATE CREATED AUTHOR AUTHOR'S ORGANIZ ATION 06/04/2023 [facility] Source Comments (unrecognize d section and content) In the event this informatio n is protected by the Federal Confidentiality of Alcohol and Drug Abuse Patient Records regulations: The Federal rules restrict any use of the information to criminally investigate or prosecute any alcohol or drug abuse patient.[facility] the event this information is protected by the Federal Confidentiality of Alcohol and Drug Abuse Patient Records regulations: The Federal rules restrict any use of the information to criminally investigate or prosecute any alcohol or drug abuse patient.[facility] the event this information is protected by the Federal Confidentiality of Alcohol and Drug Abuse Patient Records regulations: The Federal rules restrict any use of the information to criminally investigate or prosecute any alcohol or drug abuse patient.[facility]In the event this information is protected by the Federal Confidentiality of Alcohol and Drug Abuse Patient Records regulations: The Federal rules restrict any use of the information to criminally investigate or prosecute any alcohol or drug abuse patient.[facility] the event this information is protected by the Federal Confidentiality of Alcohol and Drug Abuse Patient Records regulations: The Federal rules restrict any use of the information to criminally investigate or prosecute any alcohol or drug abuse patient.[facility] HospitalIn the event this information is protected by the Federal Confidentiality of Alcohol and Drug Abuse Patient Records regulations: The Federal rules restrict any use of the information to criminally investigate or prosecute any alcohol or drug abuse patient.[facility]In the event this information is protected by the Federal Confidentiality of Alcohol and Drug Abuse Patient Records regulations: The Federal rules restrict any use of the information to criminally investigate or prosecute any alcohol or drug abuse patient.[facility] HospitalIn the event this information is protected by the Federal Confidentiality of Alcohol and Drug Abuse Patient Records regulations: The Federal rules restrict any use of the information to criminally investigate or prosecute any alcohol or drug abuse patient.[facility] HospitalIn the event this information is protected by the Federal Confidentiality of Alcohol and Drug Abuse Patient Records regulations: The Federal rules restrict any use of the information to criminally investigate or prosecute any alcohol or drug abuse patient.[facility] HospitalIn the event this information is protected by the Federal Confidentiality of Alcohol and Drug Abuse Patient Records regulations: The Federal rules restrict any use of the information to criminally investigate or prosecute any alcohol or drug abuse patient.[facility] HospitalIn the event this information is protected by the Federal Confidentiality of Alcohol and Drug Abuse Patient Records regulations: The Federal rules restrict any use of the information to criminally investigate or prosecute any alcohol or drug abuse patient.[facility] HospitalIn the event this information is protected by the Federal Confidentiality of Alcohol and Drug Abuse Patient Records regulations: The Federal rules restrict any use of the information to criminally investigate or prosecute any alcohol or drug abuse patient.[facility] HospitalIn the event this information is protected by the Federal Confidentiality of Alcohol and Drug Abuse Patient Records regulations: The Federal rules restrict any use of the information to criminally investigate or prosecute any alcohol or drug abuse patient.[facility] Reason for Visit (unrecogniz ed section and content) Reason Onset Date Comments Population Health Navigation Outreach 11/07/2021 [facility] Care Gaps Reason Onset Date Comments Refill Request 11/13/2021 Reason Onset Date Comments Refill Request 2021 Reason Comments Diabetes recommendation Reason Onset Date Comments Refill Request 02/06/2022 Reason Comments Refill Request Reason Onset Date Comments ACM SAI RN 03/01/2022 SPC/SUPD rev. per request [facility] Reason Onset Date Comments Refill Request 04/26/2022 Reason Onset Date Comments Refill Request 05/17/2022 Reason Comments [facility] (unrecognized sec tion and content) Bulb Packer Relationship Specialty Start Date End Date Pratik Canseco MD [address] [place], [place] [id number] PCP - General Family Practice 12/20/16 Bulb Packer Relationship Specialty Start Date End Date Pratik Canseco MD [address] [place], [place] [phone] PCP - General Family Practice 12/20/16 Bulb Packer Relationship Specialty Start Date End Date Pratik Canseco MD [address] [place], [place] [id number] PCP - General Family Practice 12/20/16 Bulb Packer Relationship Specialty Start Date End Date Pratik Canseco MD [address] [place] [address] PCP - General Family Practice 12/20/16 Bulb Packer Relationship Specialty Start Date End Date Pratik Canseco MD [address] [place] [address] PCP - General Family Medicine 12/20/16 Bulb Packer Relationship Specialty Start Date End Date Pratik Canseco MD [address] [place] [address] PCP - General Family Medicine 12/20/16 Bulb Packer Relationship Specialty Start Date End Date Pratik Canseco MD [address] [place] [address] PCP - General Family Medicine 12/20/16 Bulb Packer Relationship Specialty Start Date End Date Pratik Canseco MD [address] [place] [address] PCP - General Family Medicine 12/20/16 Bulb Packer Relationship Specialty Start Date End Date Pratik Canseco MD [address] [place] [address] PCP - General Family Medicine 12/20/16 FOR [...] BE BASED ON THE PRIMARY CLINICAL RECORDS. [facility] [employer] [facility]. provides no warranty or guarantee of the accuracy or completeness of information in this document.
[2023-07-01 17:06] LABS: Ferritin 88 ng/mL (8-252); Iron 107 ug/dL (50-170)
== END 2023-07-01 23:59 | disposition home or self-care (01) ==
LOC: LAB 15:27
PROVIDERS: PCP Family Medicine; Referring Provider Internal Medicine Pulmonary Disease; Visit Provider Internal Medicine Pulmonary Disease
DX: G47.61 Periodic limb movement disorder (principal); G47.21 Circadian rhythm sleep disorder, delayed sleep phase type; G47.33 Obstructive sleep apnea (adult) (pediatric); G47.10 Hypersomnia, unspecified; E66.9 Obesity, unspecified; J30.9 Allergic rhinitis, unspecified
CPT/HCPCS: 36415; 82728; 83540

== ENCOUNTER → 2023-10-24 | Outpatient (CLI) | payer MEDICARE, SELFPAY ==
[2023-10-24 17:43] LABS: Absolute Lymphocyte Count 1.82 X10^3/uL (0.83-4.51); Absolute Neutrophil Count 7.2 X10^3/uL (2.0-7.7); Basophil# 0.05 X10^3/uL; Basophil% 0.5 % (0-1); Eosinophil# 0.22 X10^3/uL; Eosinophils% 2.2 % (0-5); Hematocrit 41.3 % (37-47); Hemoglobin 13.2 g/dL (12.0-15.0); Lymphocyte # 1.82 X10^3/ul (0.83-4.51); Lymphocyte % 18.1 % (19-41); Mean Corpuscular Hgb 30.3 pg (27.0-32.0); Mean Corpuscular Volume 94.7 fL (81-99); Mean Platelet Vol. 9.9 fl (6.2-12.0); Monocyte# 0.71 X10^3/uL; Monocyte% 7.1 % (0-10); NRBC Flagged by Analyzer 0 % (0-5); Neutrophil # 7.23 X10^3/uL (2.7-7.7); Neutrophil % 71.7 % (47-70); Platelet Count 303 K/mm3 (150-450); RBC Distribution Width CV 12.5 % (11.6-14.6); RBC Distribution Width SD 43.5 fl (35.1-43.9); Red Blood Count 4.36 M/mm3 (4.2-5.4); White Blood Count 10.1 K/mm3 (4.4-11.0)
== END | disposition home or self-care (01) ==
LOC: MTLAB 14:32
PROVIDERS: PCP Family Medicine; Referring Provider Family Medicine; Visit Provider Family Medicine
DX: K92.1 Melena (principal); R19.7 Diarrhea, unspecified
CPT/HCPCS: 36415; 85025

== ENCOUNTER → 2023-10-27 | Outpatient (CLI) | payer MEDICARE, SELFPAY | END | disposition home or self-care (01) | PROVIDERS: PCP Family Medicine; Referring Provider Family Medicine; Visit Provider Family Medicine | DX: K92.1 Melena (principal); R19.7 Diarrhea, unspecified | CPT/HCPCS: 87493 ==

== ENCOUNTER → 2023-10-30 | Outpatient (CLI) | payer MEDICARE, SELFPAY | END | disposition home or self-care (01) | PROVIDERS: PCP Family Medicine; Referring Provider Family Medicine; Visit Provider Family Medicine | DX: K92.1 Melena (principal); R19.7 Diarrhea, unspecified ==

== ENCOUNTER → 2023-11-19 | Outpatient (CLI) | payer MEDICARE, SELFPAY ==
[2023-11-19 16:40] LABS: ALB/GLOB Ratio 1.1 RATIO (0.9-2.4); AST(SGOT) 82 U/L (15-37); Alanine Aminotransfer ALT/SGPT 204 U/L (13-56); Albumin, Serum 3.9 g/dL (3.2-5.0); Alkaline Phosphatase 80 U/L (45-117); Anion Gap 7 (5-15); BUN 11 mg/dL (7-18); BUN/Creat Ratio 11.4 RATIO (10-20); Calcium,Total 9.1 mg/dL (8.5-10.1); Chloride 111 mmol/L (98-107); Cholesterol 169 mg/dL (200); Creatinine, Serum 0.97 mg/dL (0.55-1.02); EST Glomerular Filtration Rate 61 mL/min (>60); Est Glom Filt Rate - Afr Amer 73 mL/min (>60); Globulin 3.4 g/dL (2.2-4.2); Glucose 122 mg/dL (74-106); High Density Lipoprotein 74 mg/dL; Potassium 3.7 mmol/L (3.5-5.1); Protein, Total 7.3 g/dL (6.4-8.2); Sodium Level 141 mmol/L (136-145); Triglycerides 83 mg/dL; Very Low Density Lipoprotein 17 mg/dL (5-40)
[2023-11-19 18:05] LABS: Microalbumin,Random Urine 13.3 mg/L (NO RANGE EST.); Microalbumin:Creatinine Ratio 6.6 mg/g CRE (<30 mg/g CRE)
== END | disposition home or self-care (01) ==
LOC: MFPLAB 13:56
PROVIDERS: PCP Family Medicine; Visit Provider Family Medicine
DX: E11.69 Type 2 diabetes mellitus with other specified complication (principal); E66.9 Obesity, unspecified
CPT/HCPCS: 36415; 80053; 80061; 82043; 82570

== ENCOUNTER → 2023-11-20 | Outpatient (CLI) | payer MEDICARE, SELFPAY ==
[2023-11-20 18:04] LABS: GGTP 46 U/L (5-55)
[2023-11-22 08:10] LABS: HEPATITIS B SURFACE AG Negative (Negative); Hep C Antibodies Non Reactive (Non Reactive); Hepatitis A IgM Antibody Negative (Negative); Hepatitis B Core AB IgM Negative (Negative)
== END | disposition home or self-care (01) ==
LOC: MFPLAB 15:46
PROVIDERS: PCP Family Medicine; Visit Provider Family Medicine
DX: R74.8 Abnormal levels of other serum enzymes (principal)
CPT/HCPCS: 36415; 80074; 82977

== ENCOUNTER → 2023-11-28 | Outpatient (CLI) | payer MEDICARE, SELFPAY ==
[2023-11-28 18:07] LABS: ALB/GLOB Ratio 1.1 RATIO (0.9-2.4); AST(SGOT) 48 U/L (15-37); Alanine Aminotransfer ALT/SGPT 88 U/L (13-56); Alkaline Phosphatase 85 U/L (45-117); Anion Gap 7 (5-15); BUN 11 mg/dL (7-18); BUN/Creat Ratio 10.9 RATIO (10-20); Calcium,Total 9.5 mg/dL (8.5-10.1); Chloride 105 mmol/L (98-107); Creatinine, Serum 1.01 mg/dL (0.55-1.02); EST Glomerular Filtration Rate 58 mL/min (>60); Est Glom Filt Rate - Afr Amer 70 mL/min (>60); Globulin 3.6 g/dL (2.2-4.2); Glucose 137 mg/dL (74-106); Potassium 3.7 mmol/L (3.5-5.1); Protein, Total 7.6 g/dL (6.4-8.2); Sodium Level 138 mmol/L (136-145)
== END | disposition home or self-care (01) ==
LOC: MFPLAB 15:49
PROVIDERS: PCP Family Medicine; Visit Provider Family Medicine
DX: R74.01 Elevation of levels of liver transaminase levels (principal)
CPT/HCPCS: 36415; 80053

== ENCOUNTER → 2024-01-15 | Outpatient (CLI) | payer MEDICARE, SELFPAY ==
[2024-01-15 11:14] LABS: Absolute Lymphocyte Count 1.98 X10^3/uL (0.83-4.51); Absolute Neutrophil Count 5.6 X10^3/uL (2.0-7.7); Basophil# 0.04 X10^3/uL; Basophil% 0.5 % (0-1); Eosinophil# 0.33 X10^3/uL; Eosinophils% 3.8 % (0-5); Hematocrit 40.3 % (37-47); Hemoglobin 13.1 g/dL (12.0-15.0); Lymphocyte # 1.98 X10^3/ul (0.83-4.51); Lymphocyte % 23.1 % (19-41); Mean Corp Hgb Conc 32.5 g/dL (32-36); Mean Corpuscular Hgb 30.3 pg (27.0-32.0); Mean Corpuscular Volume 93.3 fL (81-99); Mean Platelet Vol. 9.4 fl (6.2-12.0); Monocyte# 0.59 X10^3/uL; Monocyte% 6.9 % (0-10); NRBC Flagged by Analyzer 0 % (0-5); Neutrophil # 5.61 X10^3/uL (2.7-7.7); Neutrophil % 65.4 % (47-70); Platelet Count 204 K/mm3 (150-450); RBC Distribution Width CV 11.9 % (11.6-14.6); RBC Distribution Width SD 41.3 fl (35.1-43.9); Red Blood Count 4.32 M/mm3 (4.2-5.4); White Blood Count 8.6 K/mm3 (4.4-11.0)
[2024-01-15 11:46] LABS: ALB/GLOB Ratio 1.1 RATIO (0.9-2.4); AST(SGOT) 30 U/L (15-37); Alanine Aminotransfer ALT/SGPT 42 U/L (13-56); Albumin, Serum 3.8 g/dL (3.2-5.0); Alkaline Phosphatase 65 U/L (45-117); Anion Gap 7 (5-15); BUN 14 mg/dL (7-18); BUN/Creat Ratio 14.4 RATIO (10-20); Calcium,Total 9.3 mg/dL (8.5-10.1); Chloride 112 mmol/L (98-107); Creatinine, Serum 0.97 mg/dL (0.55-1.02); EST Glomerular Filtration Rate 60 mL/min (>60); Est Glom Filt Rate - Afr Amer 73 mL/min (>60); Globulin 3.4 g/dL (2.2-4.2); Glucose 113 mg/dL (74-106); Potassium 3.9 mmol/L (3.5-5.1); Protein, Total 7.2 g/dL (6.4-8.2); Sodium Level 141 mmol/L (136-145)
== END | disposition home or self-care (01) ==
PROVIDERS: PCP Family Medicine; Referring Provider Family Medicine; Visit Provider Family Medicine
DX: R74.8 Abnormal levels of other serum enzymes (principal); R53.83 Other fatigue
CPT/HCPCS: 36415; 80053; 82140; 84443; 85025

== ENCOUNTER → 2024-02-27 | Outpatient (CLI) | payer MEDICARE, SELFPAY ==
[2024-02-27 17:42] LABS: Absolute Lymphocyte Count 2.03 X10^3/uL (0.83-4.51); Absolute Neutrophil Count 5.7 X10^3/uL (2.0-7.7); Basophil# 0.05 X10^3/uL; Basophil% 0.6 % (0-1); Eosinophil# 0.38 X10^3/uL; Eosinophils% 4.3 % (0-5); Hematocrit 40.6 % (37-47); Hemoglobin 13.1 g/dL (12.0-15.0); Lymphocyte # 2.03 X10^3/ul (0.83-4.51); Lymphocyte % 23.1 % (19-41); Mean Corp Hgb Conc 32.3 g/dL (32-36); Mean Corpuscular Hgb 30.3 pg (27.0-32.0); Monocyte# 0.58 X10^3/uL; Monocyte% 6.6 % (0-10); NRBC Flagged by Analyzer 0 % (0-5); Neutrophil % 65.1 % (47-70); Platelet Count 284 K/mm3 (150-450); RBC Distribution Width CV 12.1 % (11.6-14.6); RBC Distribution Width SD 42.2 fl (35.1-43.9); Red Blood Count 4.32 M/mm3 (4.2-5.4); White Blood Count 8.8 K/mm3 (4.4-11.0)
[2024-02-27 17:51] LABS: ALB/GLOB Ratio 1.2 RATIO (0.9-2.4); AST(SGOT) 30 U/L (15-37); Alanine Aminotransfer ALT/SGPT 38 U/L (13-56); Albumin, Serum 3.8 g/dL (3.2-5.0); Alkaline Phosphatase 67 U/L (45-117); Anion Gap 8 (5-15); BUN 12 mg/dL (7-18); BUN/Creat Ratio 11.2 RATIO (10-20); Calcium,Total 9.8 mg/dL (8.5-10.1); Chloride 110 mmol/L (98-107); Creatinine, Serum 1.07 mg/dL (0.55-1.02); EST Glomerular Filtration Rate 54 mL/min (>60); Est Glom Filt Rate - Afr Amer 65 mL/min (>60); Globulin 3.2 g/dL (2.2-4.2); Glucose 170 mg/dL (74-106); Potassium 4.1 mmol/L (3.5-5.1); Sodium Level 139 mmol/L (136-145)
== END | disposition home or self-care (01) ==
LOC: MFPLAB 14:49
PROVIDERS: PCP Family Medicine; Visit Provider Family Medicine
DX: R42 Dizziness and giddiness (principal)
CPT/HCPCS: 36415; 80053; 85025

== ENCOUNTER → 2024-04-14 | Outpatient (CLI) | payer MEDICARE, SELFPAY | END | disposition home or self-care (01) | LOC: MTRAD 13:39 | PROVIDERS: PCP Family Medicine; Referring Provider Physician Assistant; Visit Provider Physician Assistant | DX: R05.9 Cough, unspecified (principal) | CPT/HCPCS: 71046 ==

== ENCOUNTER → 2024-05-24 | Outpatient (CLI) | payer MEDICARE, SELFPAY ==
[2024-05-24 17:41] LABS: Absolute Lymphocyte Count 2.14 X10^3/uL (0.83-4.51); Absolute Neutrophil Count 5.7 X10^3/uL (2.0-7.7); Basophil# 0.06 X10^3/uL; Basophil% 0.7 % (0-1); Eosinophil# 0.25 X10^3/uL; Eosinophils% 2.8 % (0-5); Hematocrit 42.2 % (37-47); Lymphocyte # 2.14 X10^3/ul (0.83-4.51); Lymphocyte % 24.4 % (19-41); Mean Corp Hgb Conc 33.2 g/dL (32-36); Mean Corpuscular Hgb 31.3 pg (27.0-32.0); Mean Corpuscular Volume 94.4 fL (81-99); Mean Platelet Vol. 9.9 fl (6.2-12.0); Monocyte# 0.57 X10^3/uL; Monocyte% 6.5 % (0-10); NRBC Flagged by Analyzer 0 % (0-5); Neutrophil # 5.73 X10^3/uL (2.7-7.7); Neutrophil % 65.3 % (47-70); Platelet Count 308 K/mm3 (150-450); RBC Distribution Width CV 12.5 % (11.6-14.6); RBC Distribution Width SD 43.4 fl (35.1-43.9); Red Blood Count 4.47 M/mm3 (4.2-5.4); White Blood Count 8.8 K/mm3 (4.4-11.0)
[2024-05-24 18:52] LABS: Hemoglobin A1c 7.2 % (3.8-5.6)
[2024-05-24 19:04] LABS: ALB/GLOB Ratio 1.1 RATIO (0.9-2.4); AST(SGOT) 25 U/L (15-37); Alanine Aminotransfer ALT/SGPT 36 U/L (13-56); Albumin, Serum 3.7 g/dL (3.2-5.0); Alkaline Phosphatase 73 U/L (45-117); Anion Gap 6 (5-15); BUN 13 mg/dL (7-18); BUN/Creat Ratio 13.3 RATIO (10-20); Calcium,Total 9.4 mg/dL (8.5-10.1); Chloride 110 mmol/L (98-107); Cholesterol 161 mg/dL (200); Creatinine, Serum 0.98 mg/dL (0.55-1.02); EST Glomerular Filtration Rate 60 mL/min (>60); Est Glom Filt Rate - Afr Amer 72 mL/min (>60); Globulin 3.3 g/dL (2.2-4.2); Glucose 157 mg/dL (74-106); High Density Lipoprotein 82 mg/dL; Potassium 4.1 mmol/L (3.5-5.1); Sodium Level 139 mmol/L (136-145); Triglycerides 127 mg/dL; Very Low Density Lipoprotein 25 mg/dL (5-40)
== END | disposition home or self-care (01) ==
LOC: MFPLAB 15:26
PROVIDERS: PCP Family Medicine; Referring Provider Family Medicine; Visit Provider Family Medicine
DX: R53.83 Other fatigue (principal); E11.69 Type 2 diabetes mellitus with other specified complication
CPT/HCPCS: 36415; 80053; 80061; 83036; 84443; 85025

== ENCOUNTER → 2025-02-16 | Outpatient (CLI) | payer MEDICARE, SELFPAY ==
[2025-02-16 18:23] LABS: Anion Gap 12 (5-15); BUN 12 mg/dL (4-19); BUN/Creat Ratio 12.5 RATIO (10-20); Calcium,Total 9.5 mg/dL (7.6-11.0); Carbon Dioxide 21.7 mmol/L (21.0-32.0); Chloride 106 mmol/L (98-108); Cholesterol 157 mg/dL (<=200); Creatinine, Urine (random) 181.00 mg/dL (28.00-217.00); Glucose 147 mg/dL (70-99); Low Density Lipoprotein Calc. 57 mg/dL; Microalbumin,Random Urine < 12.0 mg/L (<20 mg/L); Potassium 4.3 mmol/L (3.3-5.1); Triglycerides 103 mg/dL; Very Low Density Lipoprotein 21 mg/dL (5-40); cholesterol:hdl ratio screen 1.96
== END | disposition home or self-care (01) ==
LOC: MTLAB 15:04
PROVIDERS: PCP Family Medicine; Referring Provider Family Medicine; Visit Provider Family Medicine
DX: E11.69 Type 2 diabetes mellitus with other specified complication (principal)
CPT/HCPCS: 36415; 80048; 80061; 82043; 82570

== ENCOUNTER → 2025-02-28 | Outpatient (CLI) | payer MEDICARE, SELFPAY ==
--- OUTSIDE RECORDS SUMMARY | 2025-02-23 21:37 | XMS RPT_ITS | CCD ---
Author Organization [facility] CliniSymd Care Team Providers Care Primary Care Pediatrician Name Role Phone Pratik Canseco MD Primary Care Provider DO Mendy Greene Primary Care Provider 1([facility] )[phone] Dr. Gabriel Mosley Attending Provider 1([facility])[phone] Sharee SAN, JANNETTE Paz Referring Provider 1([facility])[phone] DO Mendy Greene Referring Provider 1([facility])[phone] ABELINO Lai Attending Provider Dr. Behzad Jama Attending Provider 1([facility])[phone] DO Mendy Greene Primary Care Provider 1([facility] )[phone] ABELINO Beasley Referring Provider 1([facility])-[phone] Pratik Canseco MD Primary Care Provider DO Mendy Greene Primary Care Provider 1([facility] )[phone] DO Mendy Greene Referring Provider 1([facility])[phone] DO Mendy Greene Other Provider 1([facility])[phone] Paul Dolan Attending Provider 1([facility])[phone] Pratik Canseco MD Primary Care Provider Mendy Greene DO Primary Care Provider PAULETTE DAY Referring Unavailable MENDY GREENE Primary Care UnavailFish Valentin Referring Unavailable Qiana, Fish Primary Care Unavailable Neo Awad Attending Unavailable Fish Kiran Referring Unavailable Qiana, Fish Primary Care Unavailable Owen Ibarra Attending Unavailable Qiana, Fish Referring Unavailable Qiana, Fish Primary Care Unavailable Qiana, Fish Attending Unavailable Qiana, Fish Primary Care Unavailable Owen Ibarra Attending Unavailable Owen Ibarra Referring Unavailable Fish Kiran Primary Care Unavailable Fish Kiran Attending Unavailable Fish Kiran Primary Care Unavailable Fish Kiran Attending Unavailable Fish Kiran Referring Unavailable Medications Current Medications Medication Drug Class(es) Dates Sig (Normalized) Sig (Original) BENEFIBER, WHEAT DEXTRIN, ORAL (19 sources) BENEFIBER, WHEAT DEXTRIN, ORAL Take by mouth. Active BENEFIBER, WHEAT DEXTRIN, ORAL Take by mouth. 0 Active Comment on above: Take by mouth. cholecalciferol 1.25 mg oral capsule (19 sources) Vitamin D take 1 capsule by mouth every week cholecalciferol, Vitamin D3, (VITAMIN D3) 1,250 mcg (50,000 unit) cap capsule Take 1 capsule by mouth one time a week. Active Comment on above: Take 1 capsule by mo [facility] one time a week. CPAP (8 sources) CPAP Active CPAP cyclobenzaprine hydrochloride 5 mg oral tablet (18 sources) Muscle Relaxant Start: 06-21-2021 take 1 tablet by mouth every twelve hours as needed cyclobenzaprine (FLEXERIL) 5 mg tablet Take 1 tablet by mouth twice daily as needed for muscle spasm. 60 tablet 06/21/2021 Active Comment on above: Take 1 tablet by [facility] twice daily as needed for muscle spasm. estriol micronized (CPD) (8 sources) Start: 06-18-2022 estriol micronized (CPD) Use vaginally 2 times per week. 1 Each 1 06/18/2022 Active Comment on above: Use vaginally 2 time s per week. estrogens, conjugated (retirement) 0.625 mg/ml vaginal cream (20 sources) Estrogen Start: 06-22-2024 conjugated estrogens (PREMARIN) vaginal cream Indications: Postmenopausal atrophic vaginitis Use 2 g vaginally two times a week. 42.5 g 06/22/2024 Active Start: 07-01-2023 End: 06-18-2024 conjugated estrogens (PREMAR IN) vaginal cream Indications: Postmenopausal atrophic vaginitis Use 2 g vaginally two times a week. 42.5 g 07/01/2023 06/18/2024 Discontinued Start: 07-18-2020 End: 06-15-2021 conjugated estrogens (PREMAR IN) vaginal cream Indications: Postmenopausal atrophic vaginitis Use 2 g vaginally two times a week. 42.5 g 0 06/15/2021 Active Comment on above: Use 2 g vaginally tw o times a week. Flaxseed extract (19 sources) Non-Standardized Food Allergenic Extract, Non-Standardized Plant Allergenic Extract FLAXSEED ORAL Take b y mouth. Active FLAXSEED ORAL Ta ke by mouth. 0 Active Comment on above: Take by mouth. ibuprofen 200 mg oral tablet (18 sources) Nonsteroidal Anti-inflammatory Drug take 1 tablet by mouth every six hours as needed ibuprofen (MOTRIN) 200 mg tablet Take 200 mg by mouth every 6 hours as needed. Active Comment on above: Take 200 mg by mouth every 6 hours as needed. iron,carb/vit C/vit B12/folic (IRON 100 PLUS ORAL) (19 sources) iron,carb/vit C/ vit B12/folic (IRON 100 PLUS ORAL) Take by mouth. Active iron,carb/vit C/ vit B12/folic (IRON 100 PLUS ORAL) Take by mouth. 0 Active Comment on above: Take by mouth. magnesium carbonate (19 sources) MAGNESIUM CARBON ATE ORAL Take 400 mg by mouth. Active MAGNESIUM CARBON ATE ORAL Take 400 mg by mouth. 0 Active Comment on above: Take 400 mg by mouth . metFORMIN hydrochloride 1000 mg oral tablet (20 sources) Biguanide Start: 1 End: 3 take 1 tablet by mouth twice daily at mealtime metFORMIN (GLUCOPHAGE) 1,000 mg tablet Indications: Controlled type 2 diabetes mellitus without complication, without long-term current use of insulin (HCC) Take 1 tablet by mouth twice daily with meals. 180 tablet 1 02/06/2022 Active Comment on above: Take 1 tablet by [facility] twice daily with meals. MULTIVITAMIN ORAL (19 sources) MULTIVITAMIN ORA L Take by mouth. Active MULTIVITAMIN ORA L Take by mouth. 0 Active Comment on above: Take by mouth. rOPINIRole 0.25 mg oral tablet (10 sources) Nonergot Dopamine Agonist Start: 02-28-2022 take 1-2 tablets by mouth in the evening rOPINIRole (REQUIP) 0.25 mg tablet TAKE 1 TO 2 TABLETS BY MOUTH IN THE EVENING 02/28/2022 Active Comment on above: TAKE 1 TO 2 TABLETS BY MOUTH IN THE EVENING topiramate 50 mg oral tablet (20 sources) Start: 05-20-2022 take 1 tablet by mouth once daily at bedtime topiramate (TOPAMAX) 50 mg tablet Indications: Migraine without status migrainosus, not intractable, unspecified migraine type Take 1 tablet by mouth daily at bedtime. 90 tablet 1 05/20/2022 Active Start: 11-09-2020 End: 05-17-2022 take 1 tablet by mouth once daily at bedtime topiramate (TOPAMAX) 50 mg tablet Indications: Migraine without status migrainosus, not intractable, unspecified migraine type Take 1 tablet by mouth daily at bedtime. 90 tablet 1 11/13/2021 05/17/2022 Discontinued Comment on above: Take 1 tablet by naveen th daily at bedtime. VITAMIN B COMPLEX-100 ORAL (19 sources) VITAMIN B COMPLE X-100 ORAL Take 1 capsule by mouth. Active VITAMIN B COMPLE X-100 ORAL Take 1 capsule by mouth. 0 Active Comment on above: Take 1 capsule by mo [facility]. Completed/Discontinued Medications Medication Drug Class(es) Dates Sig (Normalized) Sig (Original) ascorbic acid 500 mg oral capsule (6 sources) Vitamin C Start: 11-28-2022 Ascorbic Acid (Vitamin C) Active MG PO November 27, 2022 11:00pm aspirin 81 mg chewable tablet (20 sources) Platelet Aggregation Inhibitor, Nonsteroidal Anti-inflammatory Drug Start: 11-28-2022 take 81 mg by mouth once daily Aspirin Active 81 MG PO DAILY November 27, 2022 11:00pm take 1 tablet by mouth once gisselle y aspirin, enteric coated (ASPIRIN, ENTERIC COATED) 81 mg EC tablet Take 81 mg by mouth once daily. Active Comment on above: Take 81 mg by mouth once daily. ferrous sulfate 325 mg oral tablet (6 sources) Start: 3 take 1 tablet by mouth twice daily Ferrous Sulfate (Feosol) 325 mg (65 mg iron) tablet Active 325 MG PO TWICE A DAY November 27, 2022 11:00pm fluticasone propionate 0.05 mg/actuat metered dose nasal spray (6 sources) Corticosteroid Start: 3 take 1 spray(s) nasal route once daily Fluticasone Propionate (Allergy Relief (Fluticasone)) 50 mcg/actuation spray,suspension Active 2 SPRAY INTRANASAL DAILY November 27, 2022 11:00pm administer into each nostril Losartan (20 sources) Angiotensin 2 Receptor Allan Start: 06-22-202 3 Losartan Active TAB PO November 27, 2022 11:00pm Start: 11-28-2022 Losartan Activ e TAB PO November 28, 2022 12:00am Start: 10-24-2020 End: 04-26-2022 take 1 tablet by mouth once daily losartan (COZAAR) 25 mg tablet Indications: Controlled type 2 diabetes mellitus without complication, without long-term current use of insulin (HCC) Take 1 tablet by mouth once daily. 90 tablet 1 04/26/2022 Active Comment on above: Take 1 tablet by naveen th once daily. Magnesium (6 sources) Start: 11-28-2022 take 250 mg by mouth once daily Magnesium Active 250 MG PO DAILY November 27, 2022 11:00pm Start: 11-28-2022 take 250 mg by mouth once gisselle y Magnesium Active 250 MG PO DAILY November 28, 2022 12:00am Multivitamin (Daily Multi-Vitamin) tablet (6 sources) Start: 11-28-2022 take 1 tablet by mouth once daily Multivitamin (Daily Multi-Vitamin) tablet Active 1 TABLET PO DAILY November 27, 2022 11:00pm Start: 11-28-2022 take 1 tablet by naveen th once daily Multivitamin (Daily Multi-Vitamin) tablet Active 1 TABLET PO DAILY November 28, 2022 12:00am [place]-3 Fatty Acids (6 sources) Start: 11-28-2022 take 1000 mg by mout h once daily [place]-3 Fatty Acids Active 1000 MG PO DAILY November 27, 2022 11:00pm Start: 11-28-2022 take 1000 mg by mouth once didi ly [place]-3 Fatty Acids Active 1000 MG PO DAILY November 28, 2022 12:00am ubidecarenone 100 mg oral ca psule (20 sources) Start: 11-28-2022 Coenzyme Q10 ( Co Q-10) 100 mg capsule Active 100 MG PO DAILY November 27, 2022 11:00pm take 1 capsule by mouth once Lu nzyme Q10 (CO Q-10) 200 mg cap Take by mouth. Active Coenzyme Q10 (CO Q-10) 200 mg cap Take by mouth. 0 Active Comment on above: Take by mouth. Vitamin B Complex (6 sources) Start: 11-28-2022 take 1 tablet by mouth once daily Vitamin B Complex Active 1 TABLET PO DAILY November 27, 2022 11:00pm Start: 11-28-2022 take 1 tablet by mouth once da tim Vitamin B Complex Active 1 TABLET PO DAILY November 28, 2022 12:00am Problems Active Problems Problem Classification Problem Date Documented Da te Episodic/Chronic Anxiety disorders (19 sources) Generalized anxiety disorder; Translations: [Generalized anxiety disorder] 10-28-2017 Chronic Diabetes mellitus with complications (1 source) Type 2 diabetes mellitus with other specified complication; Translations: [Type 2 diabetes mellitus with other specified complication] Onset: 02-16-2025 Chronic Diabetes mellitus without complication (20 sources) Type 2 diabetes mellitus without complication; Translations: [Type 2 diabetes mellitus without complications] Onset: 10-04-2010 Chronic Genitourinary symptoms and ill-defined conditions (18 sources) Incontinence; Translations: [Mixed incontinence] Onset: 06-29-2021 06-29-2021 Chronic Headache; including migraine (20 sources) Migraine; Translations: [Migraine, unspecified, not intractable, without status migrainosus] Onset: 05-24-2016 05-24-2016 Chronic Menopausal disorders (2 sources) Atrophic vaginitis; Translations: [Postmenopausal atrophic vaginitis] Chronic Other circulatory disease (19 sources) Raynaud's disease; Translations: [Raynaud's syndrome without gangrene] Onset: 05-26-2018 05-26-2018 Chronic Other inflammatory condition of skin (19 sources) Rosacea; Translations: [Rosacea, unspecified] Onset: 05-24-2016 05-24-2016 Chronic Other non-traumatic joint disorders (1 source) Pain in right shoulder; Translations: [Pain in joint, shoulder region] 03-26-2021 Episodic Other nutritional; endocrine; and metabolic disorders (19 sources) Obese class I; Translations: [Obesity, unspecified] Onset: 12-17-2018 12-17-2018 Chronic Other screening for suspected conditions (not mental disorders or infectious disease) (5 sources) Patient encounter status; Translations: [Encounter for screening mammogram for malignant neoplasm of breast] Onset: 07-23-2024 Episodic Peripheral and visceral atherosclerosis (3 sources) Peripheral vascular disease, unspecified; Translations: [Peripheral vascular disease, unspecified] 11-28-2022 Chronic Thyroid disorders (19 sources) Goiter; Translations: [Iodine-deficiency related diffuse (endemic) goiter] Onset: 12-20-2010 12-20-2010 Chronic Unclassified (1 source) Cough, unspecified; Translations: [Cough, unspecified] Onset: 06-10-2024 Past or Other Problems Problem Classification Problem Date Documented Da te Episodic/Chronic Conditions associated with dizziness or vertigo (1 source) Dizziness and giddiness; Translations: [Dizziness and giddiness] Onset: 03-22-2024 Episodic Essential hypertension (6 sources) Essential hypertension; Translations: [Essential (primary) hypertension] Onset: 05-24-2016 Resolved: 12-20-2016 12-20-2016 Chronic Malaise and fatigue (1 source) Other fatigue; Translations: [Other fatigue] Onset: 06-25-2024 Episodic Other connective tissue disease (5 sources) Muscle weakness; Translations: [Muscle weakness (generalized)] Onset: 06-29-2021 Resolved: 07-31-2021 07-31-2021 Episodic Other non-traumatic joint disorders (6 sources) Soft tissue lesion of shoulder region; Translations: [Other specified joint disorders, unspecified shoulder] Onset: 03-25-2013 Resolved: 10-31-2015 10-31-2015 Episodic Residual codes; unclassified (18 sources) Statin declined; Translations: [Procedure and treatment not carried out because of patient's decision for unspecified reasons] Onset: 05-22-2021 05-22-2021 Episodic Spondylosis; intervertebral disc disorders; other back problems (19 sources) Brachial radiculitis; Translations: [Radiculopathy, cervical region] Onset: 03-25-2013 07-18-2020 Episodic Results Test Name Value Interpretation Reference Range Facility Basic Metabolic Profile (BMP )on 02-16-2025 BUN/CRE 12.5 RATIO Normal - [facility] Comment on above: Performed By: #### L 500.4100, L500.2500, L502.0250 #### [facility] [address] [place], [place], [id number] Calcium [Mass/Vol] 9.5 mg/dL Normal 7.6-11.0 [place] Comment on above: Performed By: #### L 500.4100, L500.2500, L502.0250 #### [facility] [address] [place], [address] Chloride [Moles/Vol] 106 mmol/L Normal 98-108 [facility] Comment on above: Performed By: #### L 500.4100, L500.2500, L502.0250 #### [facility] [address] [place], [address] CO2 [Moles/Vol] 21.7 mmol/L Normal 21.0-32.0 [facility] Comment on above: Performed By: #### L 500.4100, L500.2500, L502.0250 #### [facility] [address] [place], [address] Creatinine [Mass/Vol] 0.95 mg/dL Normal 0.70-1.20 [facility] Comment on above: Performed By: #### L 500.4100, L500.2500, L502.0250 #### [facility] [address] [place], [address] GAP 12 Normal 5-15 [facility] Comment on above: Performed By: #### L 500.4100, L500.2500, L502.0250 #### [facility] [address] [place], [address] GFR/1.73 sq M.predicted among non-blacks MDRD (S/P/Bld) [Vol rate/Area] 65 mL/min/{1.73_m2} Normal >60 [facility] Comment on above: Result Comment: mL/m in/1.73m2 CKD-EPI Creatinine Equation (2020) Performed By: #### L 500.4100, L500.2500, L502.0250 #### [facility] [address] [place], [address] Glucose [Mass/Vol] 147 mg/dL High 70-99 [place] Comment on above: Performed By: #### L 500.4100, L500.2500, L502.0250 #### [facility] [address] [place], [address] Potassium [Moles/Vol] 4.3 mmol/L Normal 3.3-5.1 [facility] Comment on above: Performed By: #### L 500.4100, L500.2500, L502.0250 #### [facility] [address] [place], [address] Sodium [Moles/Vol] 140 mmol/L Normal 133-145 [place] Comment on above: Performed By: #### L 500.4100, L500.2500, L502.0250 #### [facility] [address] [place], [address] Urea nitrogen [Mass/Vol] 12 mg/dL Normal 4-19 [facility] Comment on above: Performed By: #### L 500.4100, L500.2500, L502.0250 #### [facility] [address] [place], [address] Lipid Profileon 02-16-2025 CHOL:HDL 1.[address] [facility] Comment on above: Performed By: #### L 500.4100, L500.2500, L502.0250 #### [facility] [address] [place], [address] Cholesterol [Mass/Vol] 157 mg/dL Normal <=200 [facility] Comment on above: Result Comment: Chol esterol level, Desirable <200 mg/dL Borderline high cholesterol 200-239 mg/dL High cholesterol >=240 mg/dL Recommendations of the NCEP Adult Treatment Panel for the following risk-cutoff thresholds for the [place] population. Performed By: #### L 500.4100, L500.2500, L502.0250 #### [facility] [address] [place], [address] Cholesterol in HDL [Mass/Vol] 80 mg/dL Normal [facility] Comment on above: Result Comment: Yasmeen onal Cholesterol Education Program (NCEP) guidelines: <40 mg/dL: Low HDL-cholesterol (major risk factor for CHD) >= 60 mg/dL: High HDL-cholesterol (negative risk factor for CHD) HDL-cholesterol is affected by a number of factors, e.g. smoking, exercise, hormones, sex and age. Performed By: #### L 500.4100, L500.2500, L502.0250 #### [facility] [address] [place], [address] Cholesterol in LDL [Mass/Vol] 57 mg/dL Normal [facility] Comment on above: Result Comment: Bord leetnf=307-236 mg/dL Higher Gvwj=535 mg/dL or greater Friedwald Equation for LDL-C Performed By: #### L 500.4100, L500.2500, L502.0250 #### [facility] [address] [place], [address] Cholesterol in VLDL [Mass/Vol] 21 mg/dL Normal 5-40 [facility] Comment on above: Performed By: #### L 500.4100, L500.2500, L502.0250 #### [facility] [address] [place], [address] Triglyceride [Mass/Vol] 103 mg/dL Normal [facility] Comment on above: Result Comment: The drugs N-Acetylcysteine and Metamizole may falsely depress this assay. Normal range: <150 mg/dL Borderline High: 150-199 mg/dL High: 200-499 mg/dL Very High: >500 mg/dL Performed By: #### L 500.4100, L500.2500, L502.0250 #### [facility] [address] [place], [address] Microalb:Creat Ratio,Random URon 02-16-2025 Creatinine [Mass/Vol] 181.00 mg/dL Normal 28.00-217.00 [facility] Comment on above: Performed By: #### L 500.4100, L500.2500, L502.0250 #### [facility] [address] [place], [address] MALB:CREAT UNABLE TO CALCULATE Normal <30 mg/g CRE [facility] Comment on above: Performed By: #### L 500.4100, L500.2500, L502.0250 #### [facility] [address] [place], [address] MICROALBUMIN,UR < 12.0 Normal <20 mg/L [facility] Comment on above: Performed By: #### L 500.4100, L500.2500, L502.0250 #### [facility] [address] [place], [place], [id number] COLT SCREENING W TOMOon 07-23 COLT SCREENING W REAGAN * * *Final Report* * * DATE OF EXAM: Jul 23 2024 2:35PM [facility] 0582 - COLT SCREENING W REAGAN / PROCEDURE REASON: Encounter for screening mammogram for malignant neoplasm of breast * * * * Physician Interpretation * * * * RESULT: [facility] [address] [place] [address] #[id number] - COLT SCREENING W REAGAN HISTORY: 68 year-old patient seen for screening and is asymptomatic in both breasts. Patient states no personal history of breast cancer. Patient states no personal history of ovarian cancer. COMPARISON STUDIES: The present examination has been compared to prior imaging studies dated 02/05/2018 (mammogram), 02/25/2019 (mammogram), 06/19/2020 (mammogram), 06/20/2021 (mammogram) and 07/07/2023 (mammogram). MAMMOGRAM TECHNIQUE: The study was acquired using full field digital technology and interpreted from soft copy. Digital Breast Tomosynthesis (DBT) images were obtained and used to assist in the interpretation of this examination. MAMMOGRAM FINDINGS: The breasts are almost entirely fatty. Finding 1: There are stable vascular calcifications in both breasts. Finding 2: There are several stable scattered coarse heterogeneous calcifications in both breasts. Finding 3: There is a stable biopsy marker in the left breast. No suspicious masses, calcifications or other abnormalities are seen in either breast. IMPRESSION: There is no mammographic evidence of malignancy. Routine screening mammogram is recommended. Annual mammogram will be due in 1 year. BI-RADS Category 2: Benign RISK: Based on the Tyrer-Cuzick (TC) risk assessment model, this patient has a 2.5% lifetime risk of developing breast cancer, meaning they are at average risk for developing breast cancer. However, this is only an estimate based on available history provided on the patient's questionnaire. We encourage all patients to talk with their providers about these results, further recommendations for managing breast health, and appropriate supplemental screening options if the patient has dense breast tissue. Interpreting Radiologist: Aria Flynn M.D. FACFrancis, [facility] Electronically signed on: 07/26/2024 Covered Buckle Assembler: [facility] Transcribe Date/Time: Jul 23 2024 2:24P Dictated by: ARIA FLYNN MD This examination was interpreted and the report reviewed and electronically signed by: ARIA FLYNN MD on Jul 26 2024 8:24AM EST [id number] [facility] (JOSÉ MIGUELGYWJo) MYA GILLETTE ([id number]) 1955 F Date Time Provider Department 06/30/24 AMENA TORRES During your visit today, we recorded the following information about you: Rosenda Cabrales RN 06/30/2024 2:18 PM Signed Patient requesting compound estrogen cream RX to be sent to [facility] retail pharmacy. RX for Premarin cream was sent in error on 06/18/24. Patient has not used that in years. Written RX in [facility] mailbox. SOWMYA Sexton Karmon, MD 07/02/2024 12:50 PM Signed Signed MD Ella White Trisha, RN 07/02/2024 3:04 PM Signed Rx faxed to [facility] Retail pharmacy. Left detailed message on patient's identified voicemail. Gisela Purvis RN Allergies As of Date: 06/30/2024 (No Known Allergies) Date Reviewed: 07/01/2023 Reviewed by: Amena Torres MD - Fully Assessed Reason for Visit: Compound Estrogen Cream [Other] Prescriptions as of 07/02/2024 - conjugated estrogens (PREMARIN) vaginal cream Use 2 g vaginally two times a week. - CPAP - estriol micronized (CPD) Use [...] daily with meals. - blood sugar diagnostic ([employer] GlobalTOUCH VERIO TEST STRIPS) test strip Test blood sugar(s) 1x times daily. Dx: Type 2 DM - Controlled E11.9 Insulin: No - cyclobenzaprine (FLEXERIL) 5 mg tablet Take 1 tablet by mouth twice daily as needed for muscle spasm. - ibuprofen (MOTRIN) 200 mg tablet Take [...] by mouth. Problem List As Of Date 06/30/2024 Noted Resolved Diabetes mellitus type 2, controlled, without c*10/04/2010 Thyromegaly [E01.0] 12/20/2010 Other affections of shoulder region, not elsewh*03/25/2013 10/31/2015 Brachial radiculitis [M54.12] 03/25/2013 Essential hypertension [I10] 05/24/2016 12/20/2016 Rosacea [L71.9] 05/24/2016 Migraine without status migrainosus, not intrac*05/24/2016 Generalized anxiety disorder [F41.1] Raynaud's syndrome [I73.00] 05/26/2018 Obesity, Class I, BMI 30-34.9 [E66.811] 12/17/2018 Statin declined [Z53.20] 05/22/2021 Mixed incontinence [N39.46] 06/29/2021 Muscle weakness [M62.81] 06/29/2021 07/31/2021 Encounter Status:Closed by GISELA PURVIS on 07/02/24 Normal [facility] Urgent Care Visit Reporton 0 06-10-2024 Urgent Care Visit Report [facility] [address], [address] [place] [address] OFFICE VISIT Date of Service: 06/10/24 MR#: [id number] Acct: [id number] Name: MYA GILLETTE Rep #: [id number] : 1955 Provider: ABELINO Hope Age/Sex: 68/F Location: [facility] Status: Signed Intake Vital Signs 04/14/24 13:07 06/10/24 16:06 Height 5 ft 5 in 5 ft 5 in Weight: 211 lb 2 oz BMI 35.1 BP 122/64 H 110/68 Blood Pressure Location Lt brachial Position Sitting Respiration 15 Pulse 86 66 Pulse Source NIBP Temp 97.6 F L 97.8 F Temp Source Oral Oral Pulse Oximetry (%) 100 97 Oxygen Delivery Method room air room air Intake Visit Reasons: COUGH, SORE THROAT, FATIGUE Accompanied by: Self Allergies No Known Allergies Allergy (Verified 06/10/24 16:05) Medications ???Medication ???Instructions ???Recorded ???Confirmed ???Type ascorbic acid (vitamin C) 500 mg mg PO 11/28/22 06/10/24 History capsule aspirin 81 mg chewable tablet 81 mg PO DAILY 11/28/22 06/10/24 History coenzyme Q10 100 mg capsule (Co 100 mg PO DAILY 11/28/22 06/10/24 History Q-10) ferrous sulfate 325 mg (65 mg 325 mg PO BID 11/28/22 06/10/24 History iron) tablet (Feosol) fluticasone propionate 50 2 spray intranasal DAILY 11/28/22 06/10/24 History mcg/actuation nasal spray,suspension (Allergy Relief (fluticasone)) losartan 25 mg tablet tablet PO 11/28/22 06/10/24 History magnesium 250 mg tablet 250 mg PO DAILY 11/28/22 06/10/24 History multivitamin (Daily Multi-Vitamin 1 tab PO DAILY 11/28/22 06/10/24 History tablet) omega-3 fatty acids 1,000 mg 1,000 mg PO DAILY 11/28/22 06/10/24 History capsule topiramate 50 mg tablet tablet PO 11/28/22 06/10/24 History vitamin B complex 1 tab PO DAILY 11/28/22 06/10/24 History albuterol sulfate 90 mcg/actuation 1 inh inhalation Q6H PRN shortness 06/10/24 06/10/24 Rx aerosol inhaler of breath or wheezing #6.7 grams metformin 500 mg tablet,extended 500 mg PO BID 06/10/24 06/10/24 History release 24 hr methylprednisolone 4 mg tablets in 4 mg PO PER PKG DIR 6 days #21 tabs 06/10/24 06/10/24 Rx a dose pack (Medrol (José Manuel)) Have you fallen in the past year?: No Nurse's Note: patient had covid in apr and she is still fatigue from that. patient now has cough,ST, fever and drainage and chest achiness. patient son has RSV. [facility] Medical History (Updated 06/10/24 @ 16:19 by Neo ROCA, PA) Diabetes ( 2011) Cataract ( 2017) Family History (Updated 11/28/22 @ 11:42 by Sia Cruz) Father Heart disease CVA (cerebral vascular accident) Mother CVA (cerebral vascular accident) Grandmother Cancer Kidney disease HPI HPI Details: MYA GILLETTE, is a 68 F who presents to the office today for complaint of cough, congestion, sore throat and drainage for the past 5 days. Patient states she has had continued fatigue from a COVID infection 2 months ago. She denies hemoptysis, shortness of breath or difficulty breathing. No fever, chills, sweats. No nausea, vomiting or diarrhea. No other associated symptoms or alleviating/aggravating factors. ROS Const Constitutional: No other (6 system ROS completed with pertinent findings in the HPI otherwise normal.) Exam Const General: cooperative and well developed HENGA Head: normal to inspection and atraumatic Ears: hearing grossly normal bilaterally Nose: nasal discharge clear Face and sinus: normal facial exam Mouth: oral mucosae normal Throat: abnormal tonsil bilaterally hypertrophy 1+ Resp Effort Inspection: normal respiratory effort and no audible wheezes Auscultation: Bilateral: Clear to Auscultation Cardio Palpation: normal PMI Rate: regular rate Rhythm: regular rhythm Neuro General: patient alert and CN's II-XI intact bilaterally Psych Appearance: grossly normal Mental Status: mental status grossly normal Coding Level of Care Code Off vis,new,level 3 Diagnoses Acute bronchitis J20.9 Assessment and Plan Assessment and Plan (1) Acute bronchitis: Status: Acute Orders: Orders POC FLU A B Today R05.9 - Cough, unspecified POC Rapid RSV ([place]) Today R05.9 - Cough, unspecified Medications: New methylprednisolone (Medrol (José Manuel)) 4 mg PO PER PKG DIR 6 days 21 tabs 0RF albuterol sulfate 90 mcg/actuation 1 inh inhalation Q6H PRN 6.7 grams 0RF shortness of breath or wheezing Plan Albuterol and Medrol Dosepak as prescribed today. Patient tested negative for influenza and RSV in the office today. Encouraged to get plenty of rest, drink lots of clear liquids, and use Tylenol or Ibuprofen (unless contraindicated) for fever and comfort. Patient also educated on other symptomatic management techniques. To be seen in 7-10 days if no improvement; sooner i (more content not included)... Normal [facility] CBC W/Diff, Automatedon 12-1 4 Absolute Lymph 2.14 X10 3/uL Normal 0.83-4.51 [facility] Comment on above: Performed By: #### L 501.9985, L500.4100, L501.9520, L100.0100, L500.4050 #### [facility] [address] [place], [address] Absolute Neut 5.7 X10 3/uL Normal 2.0-7.7 [facility] Comment on above: Performed By: #### L 501.9985, L500.4100, L501.9520, L100.0100, L500.4050 #### [facility] [address] [place], [address] Basophils/100 WBC (Bld) 0.7 % Normal 0-1 [facility] Comment on above: Performed By: #### L 501.9985, L500.4100, L501.9520, L100.0100, L500.4050 #### [facility] [address] [place], [address] Eosinophils/100 WBC (Bld) 2.8 % Normal 0-5 [facility] Comment on above: Performed By: #### L 501.9985, L500.4100, L501.9520, L100.0100, L500.4050 #### [facility] [address] [place], [address] Erythrocyte distribution width (RBC) [Ratio] 12.5 % Normal 11.6-14.6 [facility] Comment on above: Performed By: #### L 501.9985, L500.4100, L501.9520, L100.0100, L500.4050 #### [facility] [address] [place], [address] Hematocrit (Bld) [Volume fraction] 42.2 % Normal 37-47 [facility] Comment on above: Performed By: #### L 501.9985, L500.4100, L501.9520, L100.0100, L500.4050 #### [facility] [address] [place], [address] Hemoglobin (Bld) [Mass/Vol] 14.0 g/dL Normal 12.0-15.0 [facility] Comment on above: Performed By: #### L 501.9985, L500.4100, L501.9520, L100.0100, L500.4050 #### [facility] [address] [place], [address] IG% 0.300 Normal 0.0-0.9 [facility] Comment on above: Result Comment: IG% - Immature Granulocytes (promyelocytes, myelocytes and metamyelocytes) > 1% indicates that a LEFT SHIFT is Present. Performed By: #### L 501.9985, L500.4100, L501.9520, L100.0100, L500.4050 #### [facility] [address] [place], [address] Lymphocytes/100 WBC (Bld) 24.4 % Normal 19-41 [facility] Comment on above: Performed By: #### L 501.9985, L500.4100, L501.9520, L100.0100, L500.4050 #### [facility] [address] [place], [address] MCH (RBC) [Entitic mass] 31.3 pg Normal 27.0-32.0 [facility] Comment on above: Performed By: #### L 501.9985, L500.4100, L501.9520, L100.0100, L500.4050 #### [facility] [address] [place], [address] MCHC (RBC) [Mass/Vol] 33.2 g/dL Normal 32-36 [facility] Comment on above: Performed By: #### L 501.9985, L500.4100, L501.9520, L100.0100, L500.4050 #### [facility] [address] [place], [address] MCV (RBC) [Entitic vol] 94.4 fL Normal 81-99 [facility] Comment on above: Performed By: #### L 501.9985, L500.4100, L501.9520, L100.0100, L500.4050 #### [facility] [address] [place], [address] Monocytes/100 WBC (Bld) 6.5 % Normal 0-10 [facility] Comment on above: Performed By: #### L 501.9985, L500.4100, L501.9520, L100.0100, L500.4050 #### [facility] [address] [place], [address] Neutrophils/100 WBC (Bld) 65.3 % Normal 47-70 [facility] Comment on above: Performed By: #### L 501.9985, L500.4100, L501.9520, L100.0100, L500.4050 #### [facility] [address] [place], [address] Nucleated RBC (Bld) [#/Vol] 0 10*3/uL Normal 0-5 [facility] Comment on above: Performed By: #### L 501.9985, L500.4100, L501.9520, L100.0100, L500.4050 #### [facility] [address] [place], [address] Platelet mean volume (Bld) [Entitic vol] 9.9 fL Normal 6.2-12.0 [facility] Comment on above: Performed By: #### L 501.9985, L500.4100, L501.9520, L100.0100, L500.4050 #### [facility] [address] [place], [address] Platelets (Bld) [#/Vol] 308 10*3/uL Normal 150-450 [facility] Comment on above: Performed By: #### L 501.9985, L500.4100, L501.9520, L100.0100, L500.4050 #### [facility] [address] [place], [address] RBC (Bld) [#/Vol] 4.47 10*6/uL Normal 4.2-5.4 [facility] Comment on above: Performed By: #### L 501.9985, L500.4100, L501.9520, L100.0100, L500.4050 #### [facility] [address] [place], [address] RDW SD 43.4 fl Normal 35.1-43.9 [facility] Comment on above: Performed By: #### L 501.9985, L500.4100, L501.9520, L100.0100, L500.4050 #### [facility] [address] [place], [address] WBC (Bld) [#/Vol] 8.8 10*3/uL Normal 4.4-11.0 [place] Comment on above: Performed By: #### L 501.9985, L500.4100, L501.9520, L100.0100, L500.4050 #### [facility] [address] [place], [address] Comprehensive Metabolic Prof [facility] 05-24-2024 Albumin [Mass/Vol] 3.7 g/dL Normal 3.2-5.0 [facility] Comment on above: Performed By: #### L 100.0100, L500.4050 #### [facility] [address] [place], [address] Albumin/Globulin [Mass ratio] 1.1 {ratio} Normal 0.9-2.4 [facility] Comment on above: Performed By: #### L 100.0100, L500.4050 #### [facility] [address] [place], [address] ALK P 73 U/L Normal 45-117 [facility] Comment on above: Performed By: #### L 100.0100, L500.4050 #### [facility] [address] [place], [address] ALT [Catalytic activity/Vol] 36 U/L Normal 13-56 [facility] Comment on above: Performed By: #### L 100.0100, L500.4050 #### [facility] [address] [place], [address] AST [Catalytic activity/Vol] 25 U/L Normal 15-37 [facility] Comment on above: Performed By: #### L 100.0100, L500.4050 #### [facility] [address] [place], [address] Bilirubin [Mass/Vol] 0.40 mg/dL Normal 0.20-1.00 [facility] Comment on above: Result Comment: For patients on eltrombopag therapy, use of Dimension Colbert TBIL is not recommended. Performed By: #### L 100.0100, L500.4050 #### [facility] [address] [place], [address] BUN/CRE 13.3 RATIO Normal 10-20 [facility] Comment on above: Performed By: #### L 100.0100, L500.4050 #### [facility] [address] [place], [address] CA,Total 9.4 mg/dL Normal 8.5-10.1 [facility] Comment on above: Performed By: #### L 100.0100, L500.4050 #### [facility] [address] [place], [address] Chloride [Moles/Vol] 110 mmol/L High 98-107 [facility] Comment on above: Performed By: #### L 100.0100, L500.4050 #### [facility] [address] [place], [address] CO2 [Moles/Vol] 23.0 mmol/L Normal 21.0-32.0 [facility] Comment on above: Performed By: #### L 100.0100, L500.4050 #### [facility] [address] [place], [address] Creatinine [Mass/Vol] 0.98 mg/dL Normal 0.55-1.02 [facility] Comment on above: Result Comment: The validity of the calculated GFR GFRAA in patients over 70 years has not been determined. Clinical correlation is essential. Performed By: #### L 100.0100, L500.4050 #### [facility] [address] [place], [address] EST GFR - AA 72 mL/min Normal >60 [facility] Comment on above: Result Comment: Afri can Ethiopian GFR Calc Performed By: #### L 100.0100, L500.4050 #### [facility] [address] [place], [address] GAP 6 Normal 5-15 [facility] Comment on above: Performed By: #### L 100.0100, L500.4050 #### [facility] [address] [place], [address] GFR/1.73 sq M.predicted among non-blacks MDRD (S/P/Bld) [Vol rate/Area] 60 mL/min/{1.73_m2} Normal >60 [facility] Comment on above: Result Comment: Non- GFR Calc Performed By: #### L 100.0100, L500.4050 #### [facility] [address] [place], [address] Globulin (S) [Mass/Vol] 3.3 g/dL Normal 2.2-4.2 [facility] Comment on above: Performed By: #### L 100.0100, L500.4050 #### [facility] [address] [place], [address] Glucose [Mass/Vol] 157 mg/dL High 74-106 [place] Comment on above: Result Comment: Fast ing Glucose result greater than or equal to 126 mg/dL suggests DIABETES MELLITUS per A.D.A. criteria. Performed By: #### L 100.0100, L500.4050 #### [facility] [address] [place], [address] Potassium [Moles/Vol] 4.1 mmol/L Normal 3.5-5.1 [facility] Comment on above: Performed By: #### L 100.0100, L500.4050 #### [facility] [address] [place], [address] Sodium [Moles/Vol] 139 mmol/L Normal 136-145 [place] Comment on above: Performed By: #### L 100.0100, L500.4050 #### [facility] [address] [place], [address] T PROT 7.0 g/dL Normal 6.4-8.2 [facility] Comment on above: Performed By: #### L 100.0100, L500.4050 #### [facility] [address] [place], [address] Urea nitrogen [Mass/Vol] 13 mg/dL Normal 7-18 [facility] Comment on above: Performed By: #### L 100.0100, L500.4050 #### [facility] [address] [place], [address] Hemoglobin A1con 05-24-2024 HbA1c (Bld) [Mass fraction] 7.2 % High 3.8-5.6 [facility] Comment on above: Result Comment: Norm al < 5.7 % Prediabetic 5.7 - 6.4 % Diabetic >or= 6.5 % Please note range changes. Performed By: #### L 501.9985, L500.4100, L501.9520, L100.0100, L500.4050 #### [facility] [address] [place], [address] Lipid Profileon 05-24-2024 Cholesterol [Mass/Vol] 161 mg/dL Normal 200 [facility] Comment on above: Result Comment: <200 mg/dL Desirable 200-240 mg/dL Borderline >240 mg/dL High Risk Performed By: #### L 100.0100, L500.4050 #### [facility] [address] [place], [address] Cholesterol in HDL [Mass/Vol] 82 mg/dL Normal [facility] Comment on above: Result Comment: The drugs N-Acetylcysteine and Metamizole may falsely depress this assay. Reference Range HDL <40 mg/dL Low HDL Cholesterol HDL >or= 60 mg/dL High HDL Cholesterol Performed By: #### L 100.0100, L500.4050 #### [facility] [address] [place], [address] Cholesterol in LDL [Mass/Vol] 54 mg/dL Normal 0-130 [facility] Comment on above: Performed By: #### L 100.0100, L500.4050 #### [facility] [address] [place], [address] Cholesterol in VLDL [Mass/Vol] 25 mg/dL Normal 5-40 [facility] Comment on above: Performed By: #### L 100.0100, L500.4050 #### [facility] [address] [place], [place], [address] Triglyceride [Mass/Vol] 127 mg/dL Normal [facility] Comment on above: Result Comment: The drugs N-Acetylcysteine and Metamizole may falsely depress this assay. Serum Triglycerides Reference Interval Normal <150 mg/dL Borderline high 150 - 199 mg/dL High 200 - 499 mg/dL Very High > or = 500 mg/dL Performed By: #### L 100.0100, L500.4050 #### [facility] [address] [place], [place], [address] Thyroid Stim Hormone (TSH)on 05-24-2024 TSH 1.660 uIU/mL Normal 0.358-3.740 [facility] Comment on above: Performed By: #### L 100.0100, L500.4050 #### [facility] [address] [place], [address] CNPNon 05-17-2024 CNPN Telephone (OBGYWM) MYA GILLETTE ([id number]) 1955 F Date Time Provider Department 05/17/24 AMENA TORRES During your visit today, we recorded the following information about you: Miriam Pritchett 05/17/2024 2:[address] screening mammography order. Patient would be willing to do [place] if covered by insurance. Britni Odonnell RN 05/17/2024 2:30 PM Signed Please file mammogram order. Will then contact Pt to get scheduled. Britni Odonnell RN Allergies As of Date: 05/17/2024 (No Known Allergies) Date Reviewed: 07/01/2023 Reviewed by: Amena Torres MD - Fully Assessed Reason for Visit: Orders [681] Primary Visit Diagnosis:Encounter for screening mammogram for malignant neoplasm of breast [Z12.31] Order(s):[facility] SCREENING [facility] [[id number]] Order #: [id number] FUTURE Prescriptions as of 05/17/2024 - conjugated estrogens (PREMARIN) vaginal cream Use 2 g vaginally two times a week. - CPAP - estriol micronized (CPD) Use [...] daily with meals. - blood sugar diagnostic (Wolf Pyros PicturesUCH VERIO TEST STRIPS) test strip Test blood sugar(s) 1x times daily. Dx: Type 2 DM - Controlled E11.9 Insulin: No - cyclobenzaprine (FLEXERIL) 5 mg tablet Take 1 tablet by mouth twice daily as needed for muscle spasm. - ibuprofen (MOTRIN) 200 mg tablet Take [...] by mouth. 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] 03/25/2013 Essential hypertension [I10] 05/24/2016 12/20/2016 Rosacea [L71.9] 05/24/2016 Migraine without status migrainosus, not intrac*05/24/2016 Generalized anxiety disorder [F41.1] Raynaud's syndrome [I73.00] 05/26/2018 Obesity, Class I, BMI 30-34.9 [E66.811] 12/17/2018 Statin declined [Z53.20] 05/22/2021 Mixed incontinence [N39.46] 06/29/2021 Muscle weakness [M62.81] 06/29/2021 07/31/2021 Encounter Status:Closed by PAULETTE DAY on 05/17/24 Normal [facility] Chest PA and Lateralon 04-14 Chest PA and Lateral [facility] [address] [place] [address] [id number] Chest PA and Lateral MR#: [id number] Acct: [id number] Name: MYA GILLETTE Rep #: [id number] : 1955 F 68 From: Marshal hyatt MD PCP: Dr. Fish Kiran MD Status: REG CL Study: Chest PA and Lateral Date of Exam: 04/14/24 Exam# [id number] Ordering Dr: [place] [id number] STUDY: X-RAY CHEST REASON FOR EXAM: Female, 68 years old. 4 day history of cough, shortness of breath and weakness. TECHNIQUE: PA and lateral views of the chest. COMPARISON: None. FINDINGS: The lungs are clear and expanded. Scattered calcified granulomas. There is no demonstrated pleural abnormality. Normal size heart. Normal mediastinum and gene. Normal visualized pulmonary arteries. Normal visualized aortic arch and descending thoracic aorta. There are degenerative changes of the visualized thoracic spine. Normal visualized ribs, clavicles, and shoulders. There is no demonstrated abnormality of the visualized soft tissue structures of the upper abdomen. RAD/Chest PA and Lateral IMPRESSION: Normal x-ray examination of the chest. Electronically Signed: Marshal Benitez MD at 13:56 EST , CC: Dr. 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 Visit Reporton 1 06-14-2023 Urgent Care Visit Report [facility] [address], [address] [place] [address] OFFICE VISIT Date of Service: 04/14/24 MR#: [id number] Acct: [id number] Name: MYA GILLETTE Rep #: [id number] : 1955 Provider: ABELINO Galicia Age/Sex: 68/F Location: [facility] Status: Signed Intake Vital Signs 11/28/22 11:26 04/14/24 13:07 Height 5 ft 5 in 5 ft 5 in BP 122/64 H Blood Pressure Location Lt brachial Position Sitting Respiration 15 Pulse 86 Pulse Source NIBP Temp 97.6 F L Temp Source Oral Pulse Oximetry (%) 100 Oxygen Delivery Method room air Intake Visit Reasons: SORE THROAT, FATIGUE, COUGH, CONGESTION Chief Complaint: ST, cough/congest, fatigue, brain fog Front Office Representative Required: No Is patient in pain?: No Allergies No Known Allergies Allergy (Verified 04/14/24 13:17) Is last menstrual period known: No Post menopausal: No Patient : Yes Have you fallen in the past year?: No Nurse's Note: ST, cough/congest, fatigue, brain fog x 4 days. two people in her home covid+, concern for same. [facility] Medical History (Updated 11/28/22 @ 11:25 by Sia Cruz) Diabetes ( 2011) Cataract ( 2018) Family History (Updated 11/28/22 @ 11:42 by Sia Cruz) Father Heart disease CVA (cerebral vascular accident) Mother CVA (cerebral vascular accident) Grandmother Cancer Kidney disease HPI HPI Chief Complaint: ST, cough/congest, fatigue, brain fog Details: MYA GILLETTE, is a 68 F who presents to the office today for 4-day history of sore throat, cough/congest, fatigue, and "brain fog" x 4 days. Two people in her home covid+ currently, and she has concern for the same. No complaints of chest pain or shortness of breath or dyspnea on exertion. No [id number]-gxa-[id number] products taken to assist. Nonsmoker. No other associated symptoms and no alleviating/aggravating factors. ROS Const Constitutional: No other (as above) Exam Const General: cooperative, healthy appearing and no acute distress Nutritional Appearance: average body habitus Orientation: alert, awake and oriented x3 HENMT Head: normal to inspection Ears: hearing grossly normal bilaterally, external ears normal, TM's normal bilaterally and EAC's normal Nose: external nose normal, nares normal, septum normal and nasal discharge clear Face and sinus: normal facial exam, sinuses nontender and face symmetric Mouth: oral mucosae normal, lip normal, tongue normal and oropharynx normal Throat: posterior oropharynx normal, tonsils normal, uvula midline and no postnasal drainage Eyes General: appearance normal, both eyes and all related structures Neck Neck: normal visual inspection, full ROM, no lymphadenopathy, no meningeal signs and supple Neck mass: No Thyroid: thyroid normal Lymphatic: no lymphadenopathy noted Chest Chest palpation inspection: normal inspection of the chest Resp Effort Inspection: normal respiratory effort, able to speak in complete sentences and cough Quality of cough: wet (Nonproductive in office today) Auscultation: Bilateral: Clear to Auscultation with moist nonproductive cough Cardio Palpation: normal PMI Rate: tachycardic Rhythm: regular rhythm Heart Sounds: S1 normal, S2 normal, no gallops, no murmurs and no rubs Pulses: radial pulses present GI Inspection: normal to inspection Palpation: soft and no hepatosplenomegaly Skin General: no rashes or lesions noted Neuro General: patient alert, patient awake and patient oriented x3 Cognition: normal cognition Speech: speech normal Psych Appearance: grossly normal Mental Status: mental status grossly normal Mood: congruent mood Affect: normal affect Speech and Movement: speech and movement normal Attitude: cooperative Diagnoses COVID-19 U07.1 Assessment and Plan Assessment and Plan (1) COVID-19: Status: Acute Plan: See POC results. PA and lateral chest x-ray reveals no acute cardiopulmonary pathology per my review with radiologist interpretation concurring. Dexamethasone and Benzonatate as prescribed today. Supportive measures as instructed today. Patient aware of isolation recommendations and [facility] notification. Follow-up with PCP first available appointment for consideration of Paxlovid if patient prefers, ED sooner should symptoms worsen or any other concerns develop. Patient states acknowledging understanding all the above. Results POC SARS AG POC SARS AG Positive Last Edit by Mikayla Torres on 04/14/24 13:26 POC FLU A B Office Flu A B Negative FLU A B Last Edit by Mikayla Torres on 04/14/24 13:26 Coding Level of Care Code Off vis,new,level 3 Assessment and Plan Assessment and Plan Orders: Orders Chest PA and Lateral Today R05.9 - Cough, unspecified POC FLU A B (more content not included)... Normal [facility] CBC W/Diff, Automatedon 09-2 0-2023 Absolute Lymph 2.03 X10 3/uL Normal 0.83-4.51 [facility] Comment on above: Performed By: #### L 100.0100, L500.4050 #### [facility] [address] [place], [address] Absolute Neut 5.7 X10 3/uL Normal 2.0-7.7 [facility] Comment on above: Performed By: #### L 100.0100, L500.4050 #### [facility] [address] [place], [address] Basophils/100 WBC (Bld) 0.6 % Normal 0-1 [facility] Comment on above: Performed By: #### L 100.0100, L500.4050 #### [facility] [address] [place], [address] Eosinophils/100 WBC (Bld) 4.3 % Normal 0-5 [facility] Comment on above: Performed By: #### L 100.0100, L500.4050 #### [facility] [address] [place], [address] Erythrocyte distribution width (RBC) [Ratio] 12.1 % Normal 11.6-14.6 [facility] Comment on above: Performed By: #### L 100.0100, L500.4050 #### [facility] [address] [place], [address] Hematocrit (Bld) [Volume fraction] 40.6 % Normal 37-47 [facility] Comment on above: Performed By: #### L 100.0100, L500.4050 #### [facility] [address] [place], [address] Hemoglobin (Bld) [Mass/Vol] 13.1 g/dL Normal 12.0-15.0 [facility] Comment on above: Performed By: #### L 100.0100, L500.4050 #### [facility] [address] [place], [address] IG% 0.300 Normal 0.0-0.9 [facility] Comment on above: Result Comment: IG% - Immature Granulocytes (promyelocytes, myelocytes and metamyelocytes) > 1% indicates that a LEFT SHIFT is Present. Performed By: #### L 100.0100, L500.4050 #### [facility] [address] [place], [address] Lymphocytes/100 WBC (Bld) 23.1 % Normal 19-41 [facility] Comment on above: Performed By: #### L 100.0100, L500.4050 #### [facility] [address] [place], [address] MCH (RBC) [Entitic mass] 30.3 pg Normal 27.0-32.0 [facility] Comment on above: Performed By: #### L 100.0100, L500.4050 #### [facility] [address] [place], [address] MCHC (RBC) [Mass/Vol] 32.3 g/dL Normal 32-36 [facility] Comment on above: Performed By: #### L 100.0100, L500.4050 #### [facility] [address] [place], [address] MCV (RBC) [Entitic vol] 94.0 fL Normal 81-99 [facility] Comment on above: Performed By: #### L 100.0100, L500.4050 #### [facility] [address] [place], [address] Monocytes/100 WBC (Bld) 6.6 % Normal 0-10 [facility] Comment on above: Performed By: #### L 100.0100, L500.4050 #### [facility] [address] [place], [address] Neutrophils/100 WBC (Bld) 65.1 % Normal 47-70 [facility] Comment on above: Performed By: #### L 100.0100, L500.4050 #### [facility] [address] [place], [address] Nucleated RBC (Bld) [#/Vol] 0 10*3/uL Normal 0-5 [facility] Comment on above: Performed By: #### L 100.0100, L500.4050 #### [facility] [address] [place], [address] Platelet mean volume (Bld) [Entitic vol] 10.0 fL Normal 6.2-12.0 [facility] Comment on above: Performed By: #### L 100.0100, L500.4050 #### [facility] [address] [place], [address] Platelets (Bld) [#/Vol] 284 10*3/uL Normal 150-450 [facility] Comment on above: Performed By: #### L 100.0100, L500.4050 #### [facility] [address] [place], [address] RBC (Bld) [#/Vol] 4.32 10*6/uL Normal 4.2-5.4 [facility] Comment on above: Performed By: #### L 100.0100, L500.4050 #### [facility] [address] [place], [address] RDW SD 42.2 fl Normal 35.1-43.9 [facility] Comment on above: Performed By: #### L 100.0100, L500.4050 #### [facility] [address] [place], [address] WBC (Bld) [#/Vol] 8.8 10*3/uL Normal 4.4-11.0 [place] Comment on above: Performed By: #### L 100.0100, L500.4050 #### [facility] [address] [place], [address] Comprehensive Metabolic Prof [facility] 02-27-2024 Albumin [Mass/Vol] 3.8 g/dL Normal 3.2-5.0 [place] Comment on above: Performed By: #### L 100.0100, L500.4050 #### [facility] [address] [place], [address] Albumin/Globulin [Mass ratio] 1.2 {ratio} Normal 0.9-2.4 [facility] Comment on above: Performed By: #### L 100.0100, L500.4050 #### [facility] [address] [place], [address] ALK P 67 U/L Normal 45-117 [facility] Comment on above: Performed By: #### L 100.0100, L500.4050 #### [facility] [address] [place], [address] ALT [Catalytic activity/Vol] 38 U/L Normal 13-56 [facility] Comment on above: Performed By: #### L 100.0100, L500.4050 #### [facility] [address] [place], [address] AST [Catalytic activity/Vol] 30 U/L Normal 15-37 [facility] Comment on above: Performed By: #### L 100.0100, L500.4050 #### [facility] [address] [place], [address] Bilirubin [Mass/Vol] 0.50 mg/dL Normal 0.20-1.00 [facility] Comment on above: Result Comment: For patients on eltrombopag therapy, use of Dimension Colbert TBIL is not recommended. Performed By: #### L 100.0100, L500.4050 #### [facility] [address] [place], [address] BUN/CRE 11.2 RATIO Normal 10-20 [facility] Comment on above: Performed By: #### L 100.0100, L500.4050 #### [facility] [address] [place], [address] CA,Total 9.8 mg/dL Normal 8.5-10.1 [facility] Comment on above: Performed By: #### L 100.0100, L500.4050 #### [facility] [address] [place], [address] Chloride [Moles/Vol] 110 mmol/L High 98-107 [facility] Comment on above: Performed By: #### L 100.0100, L500.4050 #### [facility] [address] [place], [address] CO2 [Moles/Vol] 21.0 mmol/L Normal 21.0-32.0 [facility] Comment on above: Performed By: #### L 100.0100, L500.4050 #### [facility] [address] [place], [address] Creatinine [Mass/Vol] 1.07 mg/dL High 0.55-1.02 [facility] Comment on above: Result Comment: The validity of the calculated GFR GFRAA in patients over 70 years has not been determined. Clinical correlation is essential. Performed By: #### L 100.0100, L500.4050 #### [facility] [address] [place], [address] EST GFR - AA 65 mL/min Normal >60 [facility] Comment on above: Result Comment: Afri can Ethiopian GFR Calc Performed By: #### L 100.0100, L500.4050 #### [facility] [address] [place], [address] GAP 8 Normal 5-15 [facility] Comment on above: Performed By: #### L 100.0100, L500.4050 #### [facility] [address] [place], [address] GFR/1.73 sq M.predicted among non-blacks MDRD (S/P/Bld) [Vol rate/Area] 54 mL/min/{1.73_m2} Low >60 [facility] Comment on above: Result Comment: Non- GFR Calc Performed By: #### L 100.0100, L500.4050 #### [facility] [address] [place], [address] Globulin (S) [Mass/Vol] 3.2 g/dL Normal 2.2-4.2 [facility] Comment on above: Performed By: #### L 100.0100, L500.4050 #### [facility] [address] [place], [address] Glucose [Mass/Vol] 170 mg/dL High 74-106 [place] Comment on above: Result Comment: Fast ing Glucose result greater than or equal to 126 mg/dL suggests DIABETES MELLITUS per A.D.A. criteria. Performed By: #### L 100.0100, L500.4050 #### [facility] [address] [place], [address] Potassium [Moles/Vol] 4.1 mmol/L Normal 3.5-5.1 [facility] Comment on above: Performed By: #### L 100.0100, L500.4050 #### [facility] [address] [place], [address] Sodium [Moles/Vol] 139 mmol/L Normal 136-145 [place] Comment on above: Performed By: #### L 100.0100, L500.4050 #### [facility] [address] [place], [address] T PROT 7.0 g/dL Normal 6.4-8.2 [facility] Comment on above: Performed By: #### L 100.0100, L500.4050 #### [facility] [address] [place], [address] Urea nitrogen [Mass/Vol] 12 mg/dL Normal 7-18 [facility] Comment on above: Performed By: #### L 100.0100, L500.4050 #### [facility] [address] [place], [address] Iron measurement (mass/mass) Ordered By: Gabriel Mccartney on 07-01-2023 Iron (Unsp spec) [Mass/Mass] 107 ug/dL 50-170 [facility] - Chemistry and C hemistry - challengeOrdered By: Gabriel Mccartney on 07-01-2023 Ferritin [Mass/Vol] 88 ng/mL [facility] Serum or plasma ferritin braden surement (mass/volume)Ordered By: Gabriel Mccartney on 03-27-2023 Ferritin [Mass/Vol] 99 ng/mL [facility] Basophil percentageOrdered B y: Mendy Greene on 12-26-2022 Bilirubin [Mass/Vol] 0.70 mg/dL 0.20-1.00 [facility] Comment on above: For patients on eltr ombopag therapy, use of Dimension Colbert TBIL is not recommended. Chloride [Moles/Vol] 110 mmol/L 98-107 [facility] Cholesterol [Mass/Vol] 180 mg/dL <200 [facility] Comment on above: <200 mg/dL Desirable 200-240 mg/dL Borderline >240 mg/dL High Risk Glucose [Mass/Vol] 107 mg/dL 74-106 [place] Comment on above: Fasting Glucose resu lt from 100 to 125 mg/dL suggests IMPAIRED HOMEOSTASIS per A.D.A. criteria. Potassium [Moles/Vol] 3.9 mmol/L 3.5-5.1 [facility] Protein [Mass/Vol] 7.4 g/dL 6.4-8.2 [place] Sodium [Moles/Vol] 140 mmol/L 136-145 [place] Triglyceride [Mass/Vol] 104 mg/dL <199 [facility] Comment on above: The drugs N-Acetylcy steine and Metamizole may falsely depress this assay.Serum Triglycerides Reference Interval Normal <150 mg/dL Borderline high 150 - 199 mg/dL High 200 - 499 mg/dL Very High > or = 500 mg/dL Laboratory - Chemistry and C hemistry - challengeOrdered By: Mendy Greene on 12-26-2022 ALP [Catalytic activity/Vol] 67 U/L 45-117 [facility] ALT [Catalytic activity/Vol] 37 U/L 13-56 [facility] CO2 [Moles/Vol] 25.0 mmol/L 21.0-32.0 [facility] Globulin (S) [Mass/Vol] 3.6 g/dL 2.2-4.2 [facility] Urea nitrogen/Creatinine [Mass ratio] 16.0 mg/mg 10-20 [facility] No Panel InformationOrdered By: Mendy Greene on 12-26-2022 Estimated GFR (MDRD) Amer 83 mL/min >60 [facility] Comment on above: GFR Calc Estimated GFR (MDRD) Non-Af Amer 68 mL/min >60 [facility] Comment on above: Non- GFR Calc Urine Microalbumin/Creatinin e Ratio TNP [facility] Comment on above: Test not performed Serum or plasma albumin mayra urement (mass/volume)Ordered By: Mendy Greene on 12-26-2022 Albumin [Mass/Vol] 3.8 g/dL 3.2-5.0 [place] Serum or plasma albumin/glob ulin mass ratioOrdered By: Mendy Greene on 12-26-2022 Albumin/Globulin [Mass ratio] 1.1 {ratio} 0.9-2.4 [facility] Serum or plasma calcium mayra urement (mass/volume)Ordered By: Mendy Greene on 12-26-2022 Calcium [Mass/Vol] 8.9 mg/dL 8.5-10.1 [place] Serum or plasma cholesterol in HDL measurement (mass/volume)Ordered By: Mendy Greene on 12-26-2022 Cholesterol in HDL [Mass/Vol] 79 mg/dL >40 [facility] Comment on above: The drugs N-Acetylcy steine and Metamizole may falsely depress this assay. Reference Range HDL <40 mg/dL Low HDL Cholesterol HDL >or= 60 mg/dL High HDL Cholesterol Serum or plasma cholesterol in VLDL measurement (mass/volume)Ordered By: Mendy Greene on 12-26-2022 Cholesterol in VLDL [Mass/Vol] 21 mg/dL 5-40 [facility] Serum or plasma creatinine m easurement (mass/volume)Ordered By: Mendy Greene on 12-26-2022 Creatinine [Mass/Vol] 0.87 mg/dL 0.55-1.02 [facility] Comment on above: The validity of the calculated GFR & GFRAA in patients over 70 years has not been determined. Clinical correlation is essential. Serum or plasma ferritin braden surement (mass/volume)Ordered By: Mendy Greene on 12-26-2022 Ferritin [Mass/Vol] 78 ng/mL [facility] Serum or plasma low density lipoprotein (LDL) cholesterol measurement (mass/volume)Ordered By: Mendy Greene on 12-26-2022 Cholesterol in LDL [Mass/Vol] 80 mg/dL 0-130 [facility] Serum or plasma urea nitroge n measurement (mass/volume)Ordered By: Mendy Greene on 12-26-2022 Urea nitrogen [Mass/Vol] 14 mg/dL 7-18 [facility] Thin prep Papanicolaou smear with manual screeningOrdered By: Mendy Greene on 12-26-2022 Thin prep Papanicolaou smear with manual screening 22 U/L 15-37 [facility] Thin prep Papanicolaou smear with manual screening 5 5-15 [facility] Thin prep Papanicolaou smear with manual screening < 5.0 mg/L NO RANGE EST. [facility] Urine creatinine measurement (mass/volume)Ordered By: Mendy Greene on 12-26-2022 Creatinine (U) [Mass/Vol] 57.40 mg/dL NO RANGE EST. [facility] Whole blood hemoglobin A1c/t otal hemoglobin ratio (mass fraction)Ordered By: Mendy Greene on 12-26-2022 HbA1c (Bld) [Mass fraction] 6.3 % 3.8-5.6 [facility] Comment on above: Normal < 5.7 % Predi abetic 5.7 - 6.4 % Diabetic >or= 6.5 % Please note range changes. Serum or plasma ferritin braden surement (mass/volume)Ordered By: Dr. Mccartney on 11-25-2022 Ferritin [Mass/Vol] 89 ng/mL [facility] Absolute lymphocyte countOrd ered By: Mendy Greene on 08-28-2022 Lymphocytes Auto (Unsp spec) [#/Vol] 1.88 10*3/uL 0.83-4.51 [facility] Basophil percentageOrdered B y: Mendy Greene on 08-28-2022 Basophil percentage Not Reportable [facility] Basophils/100 WBC (Bld) 0.5 % 0-1 [facility] Eosinophils/100 WBC (Bld) 2.7 % 0-5 [facility] Neutrophils (Bld) [#/Vol] 5.2 10*3/uL 2.0-7.7 [facility] Neutrophils/100 WBC (Bld) 66.1 % 47-70 [facility] WBC (Bld) [#/Vol] 7.8 10*3/uL 4.4-11.0 [place] Blood erythrocytes count (nu mber/volume)Ordered By: Mendy Greene on 08-28-2022 RBC (Bld) [#/Vol] 4.44 10*6/uL 4.2-5.4 [facility] Blood hemoglobin measurement (mass/volume)Ordered By: Mendy Greene on 08-28-2022 Hemoglobin (Bld) [Mass/Vol] 13.8 g/dL 12.0-15.0 [facility] Blood lymphocytes/100 leukoc ytesOrdered By: Mendy Greene on 08-28-2022 Lymphocytes/100 WBC (Bld) 24.1 % 19-41 [facility] Blood monocytes/100 leukocyt esOrdered By: Mendy Greene on 08-28-2022 Monocytes/100 WBC (Bld) 6.3 % 0-10 [facility] Blood platelet mean volumeOr dered By: Mendy Greene on 08-28-2022 Platelet mean volume (Bld) [Entitic vol] 9.9 fL 6.2-12.0 [facility] Determination of erythrocyte mean corpuscular volume (MCV)Ordered By: Mendy Greene on 08-28-2022 MCV (RBC) [Entitic vol] 96.6 fL 81-99 [facility] Erythrocyte sedimentation ra teOrdered By: Mendy Greene on 08-28-2022 ESR (Bld) [Velocity] 11 mm/h 0-30 [facility] Hematocrit Auto (Bld) [Volum e fraction]Ordered By: Mendy Greene on 08-28-2022 Hematocrit (Bld) [Volume fraction] 42.9 % 37-47 [facility] - Hematology and Cell countsOrdered By: Mendy Greene on 08-28-2022 Erythrocyte distribution width (RBC) [Entitic vol] 44.1 fL 35.1-43.9 [facility] Erythrocyte distribution width (RBC) [Ratio] 12.3 % 11.6-14.6 [facility] Immature granulocytes/100 WBC (Bld) 0.300 % 0.0-0.9 [facility] Comment on above: IG% - Immature Granu locytes (promyelocytes, myelocytes and metamyelocytes) > 1% indicates that a LEFT SHIFT is Present. MCH (RBC) [Entitic mass] 31.1 pg 27.0-32.0 [facility] Nucleated RBC/100 WBC (Bld) [Ratio] 0 % 0-5 [facility] MCHC Auto (RBC) [Mass/Vol]Or dered By: Mendy Greene on 08-28-2022 MCHC (RBC) [Mass/Vol] 32.2 g/dL 32-36 [facility] No Panel InformationOrdered By: Mendy Greene on 08-28-2022 Anti-Nuclear Antibody Screen Negative Negative [facility] Centromere B Antibody Not Reportable [facility] EPIC WILLOW ANALYST Antibody Not Reportable [facility] Platelets bldOrdered By: Bárbara Greene on 08-28-2022 Platelets (Bld) [#/Vol] 324 10*3/uL 150-450 [facility] Serum DNA double strand anti body assay (units/volume)Ordered By: Mendy Greene on 08-28-2022 DNA double strand Ab Qn (S) Not Reportable [facility] Serum Aurelia-1 antibody assay (u nits/volume)Ordered By: Mendy Greene on 08-28-2022 Aurelia-1 extractable nuclear Ab Qn (S) Not Reportable [facility] Serum Scl-70 extractable nuc lear antibody assay (units/volume)Ordered By: Mendy Greene on 08-28-2022 SCL-70 extractable nuclear Ab Qn (S) Not Reportable [facility] Serum Lynn extractable nucl ear antibody detectionOrdered By: Mendy Greene on 08-28-2022 Lynn extractable nuclear Ab Ql (S) Not Reportable [facility] Serum cyclic citrullinated p eptide IgG antibody assay (units/volume)Ordered By: Mendy Greene on 08-28-2022 Cyclic citrullinated peptide IgG Qn 5 units 0-19 [facility] Comment on above: Negative <20 Weak po sitive 20 - 39 Moderate positive 40 - 59 Strong positive >59Performed at: [facility] [id number] Director: Sabino Jay PhD, Phone: [phone] Serum or plasma C reactive p rotein measurement (mass/volume)Ordered By: Mendy Greene on 08-28-2022 CRP [Mass/Vol] 3.10 mg/L 0.0-3.0 [facility] Comment on above: C-Reactive Protein ( CRP) provides useful information for thediagnosis, therapy and monitoring of inflammatory processesand associated diseases. For the evaluation of Relative Riskfor Cardiovascular Disease, a High Sensitivity CRP (HSCRP)should be ordered. Serum rheumatoid factor dete ctionOrdered By: Mendy Greene on 08-28-2022 Rheumatoid factor Ql (S) < 10.0 IU/mL <15 [facility] Absolute lymphocyte countOrd ered By: Mendy Greene on 05-28-2022 Lymphocytes Auto (Unsp spec) [#/Vol] 1.93 10*3/uL 0.83-4.51 [facility] Basophil percentageOrdered B y: Mendy Greene on 05-28-2022 Basophils/100 WBC (Bld) 0.7 % 0-1 [facility] Eosinophils/100 WBC (Bld) 5.3 % 0-5 [facility] Neutrophils (Bld) [#/Vol] 5.3 10*3/uL 2.0-7.7 [facility] Neutrophils/100 WBC (Bld) 64.1 % 47-70 [facility] WBC (Bld) [#/Vol] 8.2 10*3/uL 4.4-11.0 [place] Blood erythrocytes count (nu mber/volume)Ordered By: Mendy Greene on 05-28-2022 RBC (Bld) [#/Vol] 4.45 10*6/uL 4.2-5.4 [facility] Blood hemoglobin measurement (mass/volume)Ordered By: Mendy Greene on 05-28-2022 Hemoglobin (Bld) [Mass/Vol] 13.6 g/dL 12.0-15.0 [facility] Blood lymphocytes/100 leukoc ytesOrdered By: Mendy Greene on 05-28-2022 Lymphocytes/100 WBC (Bld) 23.4 % 19-41 [facility] Blood monocytes/100 leukocyt esOrdered By: Mendy Greene on 05-28-2022 Monocytes/100 WBC (Bld) 6.3 % 0-10 [facility] Blood platelet mean volumeOr dered By: Mendy Greene on 05-28-2022 Platelet mean volume (Bld) [Entitic vol] 9.9 fL 6.2-12.0 [facility] Determination of erythrocyte mean corpuscular volume (MCV)Ordered By: Mendy Greene on 05-28-2022 MCV (RBC) [Entitic vol] 96.2 fL 81-99 [facility] Hematocrit Auto (Bld) [Volum e fraction]Ordered By: Mendy Greene on 05-28-2022 Hematocrit (Bld) [Volume fraction] 42.8 % 37-47 [facility] - Hematology and Cell countsOrdered By: Mendy Greene on 05-28-2022 Erythrocyte distribution width (RBC) [Entitic vol] 43.8 fL 35.1-43.9 [facility] Erythrocyte distribution width (RBC) [Ratio] 12.3 % 11.6-14.6 [facility] Immature granulocytes/100 WBC (Bld) 0.200 % 0.0-0.9 [facility] Comment on above: IG% - Immature Granu locytes (promyelocytes, myelocytes and metamyelocytes) > 1% indicates that a LEFT SHIFT is Present. MCH (RBC) [Entitic mass] 30.6 pg 27.0-32.0 [facility] Nucleated RBC/100 WBC (Bld) [Ratio] 0 % 0-5 [facility] MCHC Auto (RBC) [Mass/Vol]Or dered By: Mendy Greene on 05-28-2022 MCHC (RBC) [Mass/Vol] 31.8 g/dL 32-36 [facility] Platelets bldOrdered By: Bárbara Greene on 05-28-2022 Platelets (Bld) [#/Vol] 332 10*3/uL 150-450 [facility] Serum or plasma ferritin braden surement (mass/volume)Ordered By: Mendy Greene on 05-28-2022 Ferritin [Mass/Vol] 47 ng/mL 8-252 [facility] Whole blood hemoglobin A1c/t otal hemoglobin ratio (mass fraction)on 12-06-2021 HbA1c (Bld) [Mass fraction] 6.4 % 3.8-5.6 [facility] Work Phone: Comment on above: Normal < 5.7 % Predi abetic 5.7 - 6.4 % Diabetic >or= 6.5 % Please note range changes. Absolute lymphocyte counton 12-04-2021 Lymphocytes Auto (Unsp spec) [#/Vol] 2.22 10*3/uL 0.83-4.51 [facility] Work Phone: Basophil percentageon 2021 Basophils/100 WBC (Bld) 0.4 % 0-1 [facility] Work Phone: [phone] Bilirubin [Mass/Vol] 0.30 mg/dL 0.20-1.00 [facility] Work Phone: Comment on above: For patients on eltr ombopag therapy, use of Dimension Colbert TBIL is not recommended. Chloride [Moles/Vol] 105 mmol/L 98-107 [facility] Work Phone: Cholesterol [Mass/Vol] 167 mg/dL <200 [facility] Work Phone: Comment on above: <200 mg/dL Desirable 200-240 mg/dL Borderline >240 mg/dL High Risk Eosinophils/100 WBC (Bld) 2.0 % 0-5 [facility] Work Phone: Glucose [Mass/Vol] 107 mg/dL 74-106 [place] Work Phone: Comment on above: Fasting Glucose resu lt from 100 to 125 mg/dL suggests IMPAIRED HOMEOSTASIS per A.D.A. criteria. Neutrophils (Bld) [#/Vol] 7.3 10*3/uL 2.0-7.7 [facility] Work Phone: Neutrophils/100 WBC (Bld) 70.1 % 47-70 [facility] Work Phone: [phone] Potassium [Moles/Vol] 4.1 mmol/L 3.5-5.1 [facility] Work Phone: [phone] Protein [Mass/Vol] 7.7 g/dL 6.4-8.2 [place] Work Phone: [phone] Sodium [Moles/Vol] 140 mmol/L 136-145 [place] Work Phone: [phone] Triglyceride [Mass/Vol] 259 mg/dL <199 [facility] Work Phone: [phone] Comment on above: The drugs N-Acetylcy steine and Metamizole may falsely depress this assay.Serum Triglycerides Reference Interval Normal <150 mg/dL Borderline high 150 - 199 mg/dL High 200 - 499 mg/dL Very High > or = 500 mg/dL WBC (Bld) [#/Vol] 10.4 10*3/uL 4.4-11.0 [facility] Work Phone: [phone] Blood erythrocytes count (nu mber/volume)on 12-04-2021 RBC (Bld) [#/Vol] 4.53 10*6/uL 4.2-5.4 [facility] Work Phone: [phone] Blood hemoglobin measurement (mass/volume)on 12-04-2021 Hemoglobin (Bld) [Mass/Vol] 14.0 g/dL 12.0-15.0 [facility] Work Phone: [phone] Blood lymphocytes/100 leukoc yteson 12-04-2021 Lymphocytes/100 WBC (Bld) 21.3 % 19-41 [facility] Work Phone: [phone] Blood monocytes/100 leukocyt eson 12-04-2021 Monocytes/100 WBC (Bld) 5.7 % 0-10 [facility] Work Phone: [phone] Blood platelet mean volumeon 12-04-2021 Platelet mean volume (Bld) [Entitic vol] 10.0 fL 6.2-12.0 [facility] Work Phone: [phone] Determination of erythrocyte mean corpuscular volume (MCV)on 12-04-2021 MCV (RBC) [Entitic vol] 91.4 fL 81-99 [facility] Work Phone: [phone] Hematocrit Auto (Bld) [Volum e fraction]on 12-04-2021 Hematocrit (Bld) [Volume fraction] 41.4 % 37-47 [facility] Work Phone: [phone] Laboratory - Chemistry and C hemistry - challengeon 12-04-2021 ALP [Catalytic activity/Vol] 84 U/L 45-117 [facility] Work Phone: [phone] ALT [Catalytic activity/Vol] 37 U/L 13-56 [facility] Work Phone: [phone] CO2 [Moles/Vol] 25.0 mmol/L 21.0-32.0 [facility] Work Phone: [phone] Cobalamin (Vitamin B12) [Mass/Vol] 734 pg/mL 211-911 [facility] Work Phone: [phone] Globulin (S) [Mass/Vol] 3.5 g/dL 2.2-4.2 [facility] Work Phone: [phone] Urea nitrogen/Creatinine [Mass ratio] 16.9 mg/mg 10-20 [facility] Work Phone: [phone] Laboratory - Hematology and Cell countson 12-04-2021 Erythrocyte distribution width (RBC) [Entitic vol] 40.3 fL 35.1-43.9 [facility] Work Phone: [phone] Erythrocyte distribution width (RBC) [Ratio] 12.0 % 11.6-14.6 [facility] Work Phone: [phone] Immature granulocytes/100 WBC (Bld) 0.500 % 0.0-0.9 [facility] Work Phone: [phone] Comment on above: IG% - Immature Granu locytes (promyelocytes, myelocytes and metamyelocytes) > 1% indicates that a LEFT SHIFT is Present. MCH (RBC) [Entitic mass] 30.9 pg 27.0-32.0 [facility] Work Phone: Nucleated RBC/100 WBC (Bld) [Ratio] 0 % 0-5 [facility] Work Phone: [phone] MCHC Auto (RBC) [Mass/Vol]on 12-04-2021 MCHC (RBC) [Mass/Vol] 33.8 g/dL 32-36 [facility] Work Phone: No Panel Informationon 12-04 Estimated GFR (MDRD) Amer 88 mL/min >60 [facility] Work Phone: [phone] Comment on above: GFR Calc Estimated GFR (MDRD) Non-Af Amer 73 mL/min >60 [facility] Work Phone: Comment on above: Non- GFR Calc Thyroid Stimulating Hormone (TSH) 1.76 uIU/mL 0.358-3.74 [facility] Work Phone: Platelets bldon 12-04-2021 Platelets (Bld) [#/Vol] 309 10*3/uL 150-450 [facility] Work Phone: [phone] Serum or plasma albumin mayra urement (mass/volume)on 12-04-2021 Albumin [Mass/Vol] 4.2 g/dL 3.2-5.0 [place] Work Phone: Serum or plasma albumin/glob ulin mass ratioon 12-04-2021 Albumin/Globulin [Mass ratio] 1.2 {ratio} 0.9-2.4 [facility] Work Phone: [phone] Serum or plasma calcium mayra urement (mass/volume)on 12-04-2021 Calcium [Mass/Vol] 9.3 mg/dL 8.5-10.1 [place] Work Phone: [phone] Serum or plasma cholesterol in HDL measurement (mass/volume)on 12-04-2021 Cholesterol in HDL [Mass/Vol] 67 mg/dL >40 [facility] Work Phone: [phone] Comment on above: The drugs N-Acetylcy steine and Metamizole may falsely depress this assay. Reference Range HDL <40 mg/dL Low HDL Cholesterol HDL >or= 60 mg/dL High HDL Cholesterol Serum or plasma cholesterol in VLDL measurement (mass/volume)on 12-04-2021 Cholesterol in VLDL [Mass/Vol] 52 mg/dL 5-40 [facility] Work Phone: Serum or plasma creatinine m easurement (mass/volume)on 12-04-2021 Creatinine [Mass/Vol] 0.83 mg/dL 0.55-1.02 [facility] Work Phone: Comment on above: The validity of the calculated GFR & GFRAA in patients over 70 years has not been determined. Clinical correlation is essential. Serum or plasma ferritin braden surement (mass/volume)on 12-04-2021 Ferritin [Mass/Vol] 41 ng/mL 8-252 [facility] Work Phone: Serum or plasma low density lipoprotein (LDL) cholesterol measurement (mass/volume)on 12-04-2021 Cholesterol in LDL [Mass/Vol] 48 mg/dL 0-130 [facility] Work Phone: Serum or plasma urea nitroge n measurement (mass/volume)on 12-04-2021 Urea nitrogen [Mass/Vol] 14 mg/dL 7-18 [facility] Work Phone: Thin prep Papanicolaou smear with manual screeningon 12-04-2021 Thin prep Papanicolaou smear with manual screening 23 U/L 15-37 [facility] Work Phone: Thin prep Papanicolaou smear with manual screening 10 5-15 [facility] Work Phone: XR Shoulder - right 3 Viewso n 03-26-2021 IMPRESSION: Glenohumeral and acromioclavicular osteoarthrosis. Calcific tendinosis versus intra-articular body. Covered Buckle Assembler: PSCB Transcribe Date/Time: Mar 26 2021 12:46P Dictated by : MCKINLEY HARVEY MD This examination was interpreted and the report reviewed and electronically signed by: MCKINLEY HARVEY MD on Mar 26 2021 12:48PM [facility] DIVISION OF RADIOLOGY * * *Final Report* * * DATE OF EXAM: Mar 26 2021 12:29PM WOX [id number] - XR SHLDR >/=3V AP/JOHANNA AP/OTHR RT / PROCEDURE REASON: Acute pain of right shoulder * * * * Physician Interpretation * * * * Right shoulder radiograph HISTORY: 65 years old Clinical information: Acute pain of right shoulder pain off and on for many years, starts anterior and then tingling down the right arm no inj TECHNIQUE: Images: XR SHLDR >/=3V AP/JOHANNA AP/OTHR RT Comparison: None. RESULT: Findings: Glenohumeral joint space is maintained. Mild marginal osteophyte formation involving the glenoid. Narrowing of the acromioclavicular joint with associated subjacent osteophytes. Calcification posterior to the humeral head which may involve the posterior aspect of the infraspinatus tendon or teres minor tendon versus intra-articular body. DIVISION OF RADIOLOGY Provider, [facility] - 03/26/2021 * * *Final Report* * * DATE OF EXAM: Mar 26 2021 12:29PM WOX [id number] - XR SHLDR >/=3V AP/JOHANNA AP/OTHR RT / PROCEDURE REASON: Acute pain of right shoulder * * * * Physician Interpretation * * * * Right shoulder radiograph HISTORY: 65 years old Clinical information: Acute pain of right shoulder pain off and on for many years, starts anterior and then tingling down the right arm no inj TECHNIQUE: Images: XR SHLDR >/=3V AP/JOHANNA AP/OTHR RT Comparison: None. RESULT: Findings: Glenohumeral joint space is maintained. Mild marginal osteophyte formation involving the glenoid. Narrowing of the acromioclavicular joint with associated subjacent osteophytes. Calcification posterior to the humeral head which may involve the posterior aspect of the infraspinatus tendon or teres minor tendon versus intra-articular body. IMPRESSION IMPRESSION: Glenohumeral and acromioclavicular osteoarthrosis. Calcific tendinosis versus intra-articular body. Covered Buckle Assembler: MICKIE Transcribe Date/Time: Mar 26 2021 12:46P Dictated by : MCKINLEY HARVEY MD This examination was interpreted and the report reviewed and electronically signed by: MCKINLEY HARVEY MD on Mar 26 2021 12:48PM EST [facility] Radiology Study observation (narrative) [facility] XR Shoulder - right 3 ViewsO rdered By: [facility] Provider on 03-26-2021 [facility] CNOVon 07-21-2019 CNOV Office Visit (NEURGN ) MYA GILLETTE ([id number]) 1955 F Date Time Provider Department 07/21/19 11:00 AM LAURA MENEZES During your visit today, we recorded the following information about you: Pulse Blood pressure Weight Height 63/minute 102/60 97.8 kg 1.664 m Laura Menezes MD 07/21/2019 11:30 AM Signed FOLLOW UP NOTE Subjective Mya Gillette is a 63 year old female who presents for follow up. 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 Her examination demonstrates anxiousness with restlessness / stereotypy, distractible right hand tremor, and significant hyper-reflexia. HPI Current Issues 1. Hyperkinetic movement - Feeling a little better since the last visit - Getting further removed from the stressful job she left - Continues to have steroetypy 2. Had a bad fall due to walking her dog in early April, tripped by the dog She thinks in retrospect she should have gone to the ER. She was bleeding from her face. She thinks she had a concussion because she was having a hard time focusing on things for more than 1-2 minutes. She can't lie down without feeling like she has someone standing on her chest (hit the front of her body). She then feels like the concussion cleared around a month later and she felt completely clear, much better than even before the concussion. 3. Depression / anxiety - Slowly weaning Prozac, down to twice a week. Doesn't feel like her mood has worsened too much since coming off. Has had a couple episodes of anxiety, takes hydroxyzine PRN. 4. ? Cervical myelopathy - Walking pretty good for the most part - Still occasionally unsteady - No falls other than being tripped by dog Current Outpatient Medications Medication Sig Dispense Refill - metFORMIN (GLUCOPHAGE) 500 mg tablet Take 2 tablets with breakfast and one with dinner 90 tablet 2 - losartan (COZAAR) 25 mg tablet Take 1 tablet by mouth once daily. 90 tablet 1 - topiramate (TOPAMAX) 25 mg tablet Take 1 tablet by mouth daily at bedtime. 90 tablet 1 - lancets (ONE TOUCH DELICA) 33 gauge misc Test blood sugar(s) once daily. Dx: Type 2 DM - Controlled E11.9 Insulin: No 100 Each 3 - blood sugar diagnostic (ONETOUCH VERIO) test strip Test blood sugar(s) 1x times daily. Dx: Type 2 DM - Controlled E11.9 Insulin: No 100 Each 3 - FLUoxetine (PROZAC) 20 mg capsule Take 3 capsules by mouth once daily. 90 capsule 5 - hydrOXYzine pamoate (VISTARIL) 25 mg capsule Take 1 capsule by mouth three times daily as needed. 30 capsule 3 - docosahexanoic acid/epa (FISH OIL ORAL) Take by mouth. - MAGNESIUM CARBONATE ORAL Take 400 mg by mouth. - Coenzyme Q10 (CO Q-10) 200 mg cap Take by mouth. - MULTIVITAMIN ORAL Take by mouth. No current facility-administered medications for this visit. REVIEW OF SYSTEMS Her ROS was positive for that mentioned in the HPI. Otherwise a 10-point ROS was completed and was negative. Objective OBJECTIVE 07/21/19 1055 BP: 102/60 BP Site: Left Arm BP Position: Sitting BP Cuff Size: Large Adult Pulse: 63 SpO2: 99% Weight: 215 lb 9.6 oz (97.8 kg) Height: 5' 5.5" (1.664 m) General: General Appearance: Well appearing, alert, in no acute distress, well-hydrated, well nourished. Head: Normocephalic, no masses, lesions, tenderness or abnormalities Neck: Supple Heart: RRR Peripheral Pulses: Normal Neurologic Exam: Mental Status: She is alert. She is fully oriented. Attention is intact. Memory is intact. Language shows normal comprehension and fluency. Affect is mildly anxious. Cranial Nerves: Pupils are equal and reactive to light. Extraocular movements show full and smooth pursuits. No nystagmus. Visual marlow are full to confrontation. Facial sensation is intact. Facial activation is symmetric. Hearing is intact to conversation. There is no hypomimia. There is no hypophonia. There is no dysarthria. Tongue is midline. Palate elevates symmetrically. Shoulder shrug is normal. Motor: Muscle bulk is normal. Rapid alternating movements are normal. Muscle power is full. R>L leg stereotypy. No tremor today Sensory: Intact to fine touch. Reflex: 2+ and symmetric. More of an exaggerated response to hammer strike. Coordination: Finger to nose is smooth without ataxia. Gait/station: Normal DATA REVIEW Actual films/image/tracing reviewed and summarized as follows: Reviewed MRI C-spine 03/25/19 with patient - Cervical spondylosis C5-6 and C6-7 with discs abutting the cord with compression / abnormal signal. Old records reviewed and summarized as follows: n/a Assessment/Plan ASSESSMENT AND PLAN: Mya Gillette is a 63 year old female with history of Sydenham's Chorea, anxiety, diabetes, and HTN who presents for follow up of twitching / gait impairment. Her examination shows mild anxiousness and R>L leg stereotypy. 1. Hyperkinetic movement - No tremor or chorea today - Leg movements are stereotype, explained to patient, not concerning - No current concern for reactivation of chorea 2. Gait impairment - Reflexes today appear more like exaggerated response more than pathologic hyper-reflexia. - MRI C-spine with some degenerative changes but without significant cord compression, would not be causing gait symptoms - Gait in the office looks fairly normal - No additional recommendations at this time. Gave her tips on what to look out for in the future if the disc protrusions were worsening (gait or bowel / bladder symptoms). Follow-up: As needed in the future. Risks AND Side Effects of Newly Prescribed Medication, Discussed with Patient: n/a Laura Menezes MD [facility] General Referring Provider: PRATIK CANSECO) [[id number]] Allergies As of Date: 07/21/2019 (No Known Allergies) Date Reviewed: 07/21/2019 Reviewed by: Tess (Shane Corona - Fully Assessed Reason for Visit: Established Patient [175] Cmt: 4 month follow up Primary Visit Diagnosis:Akathisia [G25.71] Other Visit Diagnoses:Stereotypy [F98.4] Fall, subsequent encounter [W19.XXXD] Exaggerated reflexes on examination [R29.2] Prescriptions as of 07/21/2019 Sig: METFORMIN 500 MG TABLET Take 2 tablets with breakfast* LOSARTAN 25 MG TABLET Take 1 tablet by mouth once d* TOPIRAMATE 25 MG TABLET Take 1 tablet by mouth daily * LANCETS 33 GAUGE Test blood sugar(s) once gisselle* BLOOD SUGAR DIAGNOSTIC STRIPS Test blood sugar(s) 1x times * FLUOXETINE 20 MG CAPSULE Take 3 capsules by mouth once* HYDROXYZINE PAMOATE 25 MG CAP* Take 1 capsule by mouth three* FISH OIL ORAL Take by mouth. MAGNESIUM CARBONATE ORAL Take 400 mg by mouth. COENZYME Q10 200 MG CAPSULE Take by mouth. * MULTIVITAMIN ORAL Take by mouth. Problem List As Of Date 07/21/2019 Noted Resolved Diabetes mellitus type 2, controlled, without c*10/04/2010 Thyromegaly [E01.0] 12/20/2010 Other affections of shoulder region, not elsewh*03/25/2013 10/31/2015 Brachial neuritis or radiculitis NOS [M54.12] 03/25/2013 Essential hypertension [I10] 05/24/2016 12/20/2016 Rosacea [L71.9] 05/24/2016 Migraine without status migrainosus, not intrac*05/24/2016 Generalized anxiety disorder [F41.1] Raynaud's syndrome [I73.00] 05/26/2018 More... Obesity, Class I, BMI 30-34.9 [E66.9] 12/17/2018 Disposition: Return if symptoms worsen or fail to improve. Follow-up and Disposition History Recorded Encounter Status:Closed by LAURA MENEZES MD on 07/21/19 [facility] PROGRESSon 07-21-2019 PROGRESS HNO ID: [id number] Author: Laura Menezes Service: ? Author Type: Physician Type: Progress Notes Filed: 07/21/2019 11:30 AM Note Text: FOLLOW UP NOTE Subjective Mya Gillette is a 63 year old female who presents for follow up. 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 Her examination demonstrates anxiousness with restlessness / stereotypy, distractible right hand tremor, and significant hyper-reflexia. HPI Current Issues 1. Hyperkinetic movement - Feeling a little better since the last visit - Getting further removed from the stressful job she left - Continues to have steroetypy 2. Had a bad fall due to walking her dog in early April, tripped by the dog She thinks in retrospect she should have gone to the ER. She was bleeding from her face. She thinks she had a concussion because she was having a hard time focusing on things for more than 1-2 minutes. She can't lie down without feeling like she has someone standing on her chest (hit the front of her body). She then feels like the concussion cleared around a month later and she felt completely clear, much better than even before the concussion. 3. Depression / anxiety - Slowly weaning Prozac, down to twice a week. Doesn't feel like her mood has worsened too much since coming off. Has had a couple episodes of anxiety, takes hydroxyzine PRN. 4. ? Cervical myelopathy - Walking pretty good for the most part - Still occasionally unsteady - No falls other than being tripped by dog Current Outpatient Medications Medication Sig Dispense Refill - metFORMIN (GLUCOPHAGE) 500 mg tablet Take 2 tablets with breakfast and one with dinner 90 tablet 2 - losartan (COZAAR) 25 mg tablet Take 1 tablet by mouth once daily. 90 tablet 1 - topiramate (TOPAMAX) 25 mg tablet Take 1 tablet by mouth daily at bedtime. 90 tablet 1 - lancets (ONE TOUCH DELICA) 33 gauge misc Test blood sugar(s) once daily. Dx: Type 2 DM - Controlled E11.9 Insulin: No 100 Each 3 - blood sugar diagnostic (ONETOUCH VERIO) test strip Test blood sugar(s) 1x times daily. Dx: Type 2 DM - Controlled E11.9 Insulin: No 100 Each 3 - FLUoxetine (PROZAC) 20 mg capsule Take 3 capsules by mouth once daily. 90 capsule 5 - hydrOXYzine pamoate (VISTARIL) 25 mg capsule Take 1 capsule by mouth three times daily as needed. 30 capsule 3 - docosahexanoic acid/epa (FISH OIL ORAL) Take by mouth. - MAGNESIUM CARBONATE ORAL Take 400 mg by mouth. - Coenzyme Q10 (CO Q-10) 200 mg cap Take by mouth. - MULTIVITAMIN ORAL Take by mouth. No current facility-administered medications for this visit. REVIEW OF SYSTEMS Her ROS was positive for that mentioned in the HPI. Otherwise a 10-point ROS was completed and was negative. Objective OBJECTIVE 07/21/19 1055 BP: 102/60 BP Site: Left Arm BP Position: Sitting BP Cuff Size: Large Adult Pulse: 63 SpO2: 99% Weight: 215 lb 9.6 oz (97.8 kg) Height: 5' 5.5" (1.664 m) General: General Appearance: Well appearing, alert, in no acute distress, well-hydrated, well nourished. Head: Normocephalic, no masses, lesions, tenderness or abnormalities Neck: Supple Heart: RRR Peripheral Pulses: Normal Neurologic Exam: Mental Status: She is alert. She is fully oriented. Attention is intact. Memory is intact. Language shows normal comprehension and fluency. Affect is mildly anxious. Cranial Nerves: Pupils are equal and reactive to light. Extraocular movements show full and smooth pursuits. No nystagmus. Visual marlow are full to confrontation. Facial sensation is intact. Facial activation is symmetric. Hearing is intact to conversation. There is no hypomimia. There is no hypophonia. There is no dysarthria. Tongue is midline. Palate elevates symmetrically. Shoulder shrug is normal. Motor: Muscle bulk is normal. Rapid alternating movements are normal. Muscle power is full. R>L leg stereotypy. No tremor today Sensory: Intact to fine touch. Reflex: 2+ and symmetric. More of an exaggerated response to hammer strike. Coordination: Finger to nose is smooth without ataxia. Gait/station: Normal DATA REVIEW Actual films/image/tracing reviewed and summarized as follows: Reviewed MRI C-spine 03/25/19 with patient - Cervical spondylosis C5-6 and C6-7 with discs abutting the cord with compression / abnormal signal. Old records reviewed and summarized as follows: n/a Assessment/Plan ASSESSMENT AND PLAN: Mya Gillette is a 63 year old female with history of Sydenham's Chorea, anxiety, diabetes, and HTN who presents for follow up of twitching / gait impairment. Her examination shows mild anxiousness and R>L leg stereotypy. 1. Hyperkinetic movement - No tremor or chorea today - Leg movements are stereotype, explained to patient, not concerning - No current concern for reactivation of chorea 2. Gait impairment - Reflexes today appear more like exaggerated response more than pathologic hyper-reflexia. - MRI C-spine with some degenerative changes but without significant cord compression, would not be causing gait symptoms - Gait in the office looks fairly normal - No additional recommendations at this time. Gave her tips on what to look out for in the future if the disc protrusions were worsening (gait or bowel / bladder symptoms). Follow-up: As needed in the future. Risks AND Side Effects of Newly Prescribed Medication, Discussed with Patient: n/a Laura Meneezs MD [facility] CNOVon 02-24-2019 CNOV Office Visit (NEURGN ) MYA GILLETTE ([id number]) 1955 F Date Time Provider Department 02/24/19 2:00 PM LAURA MENEZES During your visit today, we recorded the following information about you: Pulse Blood pressure Weight Height 63/minute 140/72 96.3 kg 1.664 m Laura Menezes MD 03/14/2019 4:16 PM Signed NEW PATIENT EVALUATION Subjective HPI Mya Gillette is a 63 year old right-handed female who presents for evaluation of possible chorea. Catherine Barros CNP is the referring provider. Dr. Pratik Canseco MD is the PCP. She had Sydenham's Chorea when she was in elementary school. She was out of school for a semester, and when she went back to school she was mostly better but not all the way. Was on penicillin for 14 years. She says her entire life she has had a little bit of twitching. More recently she has been having episodes where her gait changes. She says the week she asked for a referral she had fallen twice. She was worried that her chorea may have reactivated. She took her to see Dr. Barreto, who suggested she see me for evaluation. She says she moves slowly. She twitches. She would miss the chair when she would try to sit down. She had difficulty with walking, would lean funny. She felt like her memory was impaired. She says her left side was more involved than the right. A couple times when she was walking she would lean to the side or back, not in pain but just couldn't stand up straight, walking very slowly. She would have random jerking movements of the arms uncommonly. She says she was diagnosed with anxiety, depression, and ADHD around 2 years ago. She has been on Prozac for a couple years. Was seeing a counselor, never saw a psychiatrist. She felt like work was becoming very stressful, so she recently took an early residential package. At one point felt paranoid about going to work. Stress has certainly improved since retiring. She feels like her anxiety and movements seem to be affected. She feels like when one of these things is bad the other tends to be worse. She has had problems with migraines. Tried a beta allan but had side effects, felt like she would fall over when trying to exercise. Migraines improved with topiramate. Her PCP put her Lisinopril but felt like she couldn't breath when she leaned over, changed to losartan. Then was recommended to start a statin but LDL decreased to 19 so this was stopped. She has had diabetes diagnosed in 2010 that is under good control. She denies numbness in her feet. Medications: Current Outpatient Medications Medication Sig Dispense Refill - metFORMIN (GLUCOPHAGE) 500 mg tablet Take 2 tablets with breakfast and one with dinner 90 tablet 2 - losartan (COZAAR) 25 mg tablet Take 1 tablet by mouth once daily. 30 tablet 2 - FLUoxetine (PROZAC) 20 mg capsule Take 3 capsules by mouth once daily. 90 capsule 5 - hydrOXYzine pamoate (VISTARIL) 25 mg capsule Take 1 capsule by mouth three times daily as needed. 30 capsule 3 - topiramate (TOPAMAX) 25 mg tablet Take 1 tablet by mouth daily at bedtime. 30 tablet 11 - blood sugar diagnostic (ONETOUCH VERIO) test strip Test blood sugar(s) 1x times daily. Dx: Type 2 DM - Controlled E11.9 Insulin: No 100 Each 3 - lancets (ONE TOUCH DELICA) 33 gauge misc Test blood sugar(s) once daily. Dx: Type 2 DM - Controlled E11.9 Insulin: No 100 Each 3 - docosahexanoic acid/epa (FISH OIL ORAL) Take by mouth. - MAGNESIUM CARBONATE ORAL Take 400 mg by mouth. - Coenzyme Q10 (CO Q-10) 200 mg cap Take by mouth. - MULTIVITAMIN ORAL Take by mouth. - aspirin, enteric coated (ASPIRIN, ENTERIC COATED) 81 mg EC tablet Take 81 mg by mouth once daily. No current facility-administered medications for this visit. ROS ROS: Her ROS was positive for that mentioned in the HPI. Otherwise a 10-point ROS was completed and was negative. ALLERGIES No Known Allergies Past Medical History: PAST MEDICAL HISTORY Diagnosis Date - Diabetes mellitus - Generalized anxiety disorder - H/O: rheumatic fever - Microcalcifications of the breast 12/22/2009 LEFT - Migraine - Rosacea Family History: FAMILY HISTORY Problem Relation Age of Onset - Hypertension Mother - Stroke Father causing vision loss - Dementia Father - Heart Attack Father - Cancer Maternal Grandmother ovarian cancer Denies family history of neurologic disorders Social History:Social History Socioeconomic History Marital status: Spouse name: Stephen Number of children: 3 Years of education: 16 Highest education level: Not on file Occupational History 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: [employer] Social Needs Financial resource strain: Not on file Food insecurity: Worry: Not on file Inability: Not on file Transportation needs: Medical: Not on file Non-medical: Not on file Tobacco Use Smoking status: Never Smoker Smokeless tobacco: Never Used Substance and Sexual Activity Alcohol use: No Drug use: No Sexual activity: Never Partners: Male Comment: postmenopausal Lifestyle Physical activity: Days per week: Not on file Minutes per session: Not on file Stress: Not on file Relationships Social connections: Talks on phone: Not on file Gets together: Not on file Attends cheondoism service: Not on file Active member of club or organization: Not on file Attends meetings of clubs or organizations: Not on file Relationship status: Not on file Intimate partner violence: Fear of current or ex partner: Not on file Emotionally abused: Not on file Physically abused: Not on file Forced sexual activity: Not on file Other Topics Concerns: Service: Not Asked Blood Transfusions: No Caffeine Concern: No Occupational Exposure: Not Asked Hobby Hazards: Not Asked Sleep Concern: Not Asked Stress Concern: Not Asked Weight Concern: Not Asked Special Diet: Yes gout and diabetic diet Back Care: Not Asked Exercise: Yes Bike Helmet: Not Asked Seat Belt: Not Asked Self-Exams: Not Asked Social History Narrative Not on file Lives with her and 2 sons 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 Head: Normocephalic, no masses, lesions, tenderness or abnormalities Neck: Supple, no bruits Heart: RRR without murmur, gallop, or rubs. Carotid Auscultation: Without bruits Peripheral Pulses: Normal Neurologic Examination Mental Status: She is alert. She is fully oriented. Attention is intact. Recent and remote memory is intact. Language shows normal naming, comprehension, fluency, and repetition. Praxis is normal. She is anxious, restless. Cranial Nerves: Pupils are equal and reactive to light. Extraocular movements show full and smooth pursuits. No nystagmus. Funduscopic exam shows sharp optic discs and normal vasculature. Visual marlow are full to confrontation. Facial sensation is intact. Facial activation is symmetric. Hearing is intact to conversation. There is no hypomimia. There is no hypophonia. There is no dysarthria. Tongue is midline. Palate elevates symmetrically. Shoulder shrug is normal. Motor: Muscle bulk is normal. Muscle power is full. Mild right hand tremor that resolves with distraction. Spirals with two single strong interjections, otherwise without tremor. Right arm stereotypy that she can suppress. Sensory: Intact to fine touch, temp, and vibration. Reflex: Biceps and brachioradialis is 3+ bilaterally. Patellar reflex 3 to almost 4+ on right, 3+ on left. Ankle jerks 2-3+ bilaterally. Toes are downgoing to plantar stimulation. Coordination: Finger to nose is smooth without ataxia. Gait/station: She can stand from a chair without the use of her arms. Posture is upright. Station is minimally widened. Stride length is normal. Arm swing is normal. Romberg with moderate sway but independent. DATA REVIEWED Actual films/image/tracing reviewed and summarized as follows: n/a Old records reviewed and summarized as follows: A1c 6.2, B12 721, TSH 1.34 Reviewed PCP referral records Assessment/Plan Assessment AND Plan: Mya Gillette is a 63 year old right-handed female with a history of Sydenham's Chorea, anxiety, diabetes, and HTN who presents for evaluation of gait impairment and lifelong twitching with concern for reactivation of chorea. Her examination demonstrates anxiousness with restlessness / stereotypy, distractible right hand tremor, and significant hyper-reflexia. We discussed her presentation. I don't see any evidence of chorea on her exam to make me suspect that chorea has resumed. Her movements are a combination of distractible tremor and akithisia / stereotypy. I don't see major signs of gait dysfunction, though by history she has had falls. With significant hyper-reflexia, I would recommend getting an MRI of the Cervical Spine to rule out myelopathy as cause of her gait dysfunction. Would not suggest testing or treatment for chorea with lack of chorea on exam. She should return to see me in 4 months. Laura Menezes MD [facility] Laura Menezes MD 02/24/2019 2:38 PM Addendum Let's check an MRI of the cervical spine to look for causes of strong reflexes and falls. Referring Provider: PODLOGCATHERINE WOO (KATTY) [[id number]] Allergies As of Date: 02/24/2019 (No Known Allergies) Date Reviewed: 02/24/2019 Reviewed by: Tess Corona - Fully Assessed Reason for Visit: New Patient [172] Cmt: Hx of Sydenham chorea Primary Visit Diagnosis:Hyper reflexia [R29.2] Other Visit Diagnoses:Fall, subsequent encounter [W19.XXXD] Myelopathy (HCC) [G95.9] Sydenham's chorea [I02.9] Akathisia [G25.71] Anxiety [F41.9] Order(s):MRI CERVICAL SPINE WO KATELYN [[id number]] Order #: [id number] FUTURE Prescriptions as of 02/24/2019 Sig: METFORMIN 500 MG TABLET Take 2 tablets with breakfast* LOSARTAN 25 MG TABLET Take 1 tablet by mouth once d* FLUOXETINE 20 MG CAPSULE Take 3 capsules by mouth once* HYDROXYZINE PAMOATE 25 MG CAP* Take 1 capsule by mouth three* TOPIRAMATE 25 MG TABLET Take 1 tablet by mouth daily * X BLOOD SUGAR DIAGNOSTIC STRIPS Test blood sugar(s) 1x times * X LANCETS 33 GAUGE Test blood sugar(s) once gisselle* FISH OIL ORAL Take by mouth. MAGNESIUM CARBONATE ORAL Take 400 mg by mouth. COENZYME Q10 200 MG CAPSULE Take by mouth. * MULTIVITAMIN ORAL Take by mouth. ASPIRIN 81 MG TABLET,DELAYED * Take 81 mg by mouth once gisselle* Problem List As Of Date 02/24/2019 Noted Resolved Diabetes mellitus type 2, controlled, without c*INVALID FOR* Thyromegaly [E01.0] INVALID FOR* Other affections of shoulder region, not elsewh*INVALID FOR*10/31/2015 Brachial neuritis or radiculitis NOS [M54.12] INVALID FOR* Essential hypertension [I10] INVALID FOR*12/20/2016 Rosacea [L71.9] INVALID FOR* Migraine without status migrainosus, not intrac*INVALID FOR* Generalized anxiety disorder [F41.1] Raynaud's syndrome [I73.00] INVALID FOR* More... Obesity, Class I, BMI 30-34.9 [E66.9] INVALID FOR* Other instructions from your clinician: Let's check an MRI of the cervical spine to look for causes of strong reflexes and falls. Disposition: Return in about 4 months (around 06/26/2019). Follow-up and Disposition History Recorded Letter Text Letter Text Encounter Status:Closed by LAURA MENEZES MD on 03/14/19 [facility] PROGRESSon 02-24-2019 PROGRESS HNO ID: [id number] Author: Laura Menezes Service: ? Author Type: Physician Type: Progress Notes Filed: 03/14/2019 4:16 PM Note Text: NEW PATIENT EVALUATION Subjective HPI Mya Gillette is a 63 year old right-handed female who presents for evaluation of possible chorea. Catherine Barros CNP is the referring provider. Dr. Pratik Canseco MD is the PCP. She had Sydenham's Chorea when she was in elementary school. She was out of school for a semester, and when she went back to school she was mostly better but not all the way. Was on penicillin for 14 years. She says her entire life she has had a little bit of twitching. More recently she has been having episodes where her gait changes. She says the week she asked for a referral she had fallen twice. She was worried that her chorea may have reactivated. She took her to see Dr. Barreto, who suggested she see me for evaluation. She says she moves slowly. She twitches. She would miss the chair when she would try to sit down. She had difficulty with walking, would lean funny. She felt like her memory was impaired. She says her left side was more involved than the right. A couple times when she was walking she would lean to the side or back, not in pain but just couldn't stand up straight, walking very slowly. She would have random jerking movements of the arms uncommonly. She says she was diagnosed with anxiety, depression, and ADHD around 2 years ago. She has been on Prozac for a couple years. Was seeing a counselor, never saw a psychiatrist. She felt like work was becoming very stressful, so she recently took an early residential package. At one point felt paranoid about going to work. Stress has certainly improved since retiring. She feels like her anxiety and movements seem to be affected. She feels like when one of these things is bad the other tends to be worse. She has had problems with migraines. Tried a beta allan but had side effects, felt like she would fall over when trying to exercise. Migraines improved with topiramate. Her PCP put her Lisinopril but felt like she couldn't breath when she leaned over, changed to losartan. Then was recommended to start a statin but LDL decreased to 19 so this was stopped. She has had diabetes diagnosed in 2010 that is under good control. She denies numbness in her feet. Medications: Current Outpatient Medications Medication Sig Dispense Refill - metFORMIN (GLUCOPHAGE) 500 mg tablet Take 2 tablets with breakfast and one with dinner 90 tablet 2 - losartan (COZAAR) 25 mg tablet Take 1 tablet by mouth once daily. 30 tablet 2 - FLUoxetine (PROZAC) 20 mg capsule Take 3 capsules by mouth once daily. 90 capsule 5 - hydrOXYzine pamoate (VISTARIL) 25 mg capsule Take 1 capsule by mouth three times daily as needed. 30 capsule 3 - topiramate (TOPAMAX) 25 mg tablet Take 1 tablet by mouth daily at bedtime. 30 tablet 11 - blood sugar diagnostic (ONETOUCH VERIO) test strip Test blood sugar(s) 1x times daily. Dx: Type 2 DM - Controlled E11.9 Insulin: No 100 Each 3 - lancets (ONE TOUCH DELICA) 33 gauge misc Test blood sugar(s) once daily. Dx: Type 2 DM - Controlled E11.9 Insulin: No 100 Each 3 - docosahexanoic acid/epa (FISH OIL ORAL) Take by mouth. - MAGNESIUM CARBONATE ORAL Take 400 mg by mouth. - Coenzyme Q10 (CO Q-10) 200 mg cap Take by mouth. - MULTIVITAMIN ORAL Take by mouth. - aspirin, enteric coated (ASPIRIN, ENTERIC COATED) 81 mg EC tablet Take 81 mg by mouth once daily. No current facility-administered medications for this visit. ROS ROS: Her ROS was positive for that mentioned in the HPI. Otherwise a 10-point ROS was completed and was negative. ALLERGIES No Known Allergies Past Medical History: PAST MEDICAL HISTORY Diagnosis Date - Diabetes mellitus - Generalized anxiety disorder - H/O: rheumatic fever - Microcalcifications of the breast 12/22/2009 LEFT - Migraine - Rosacea Family History: FAMILY HISTORY Problem Relation Age of Onset - Hypertension Mother - Stroke Father causing vision loss - Dementia Father - Heart Attack Father - Cancer Maternal Grandmother ovarian cancer Denies family history of neurologic disorders Social History:Social History Socioeconomic History Marital status: Spouse name: Stephen Number of children: 3 Years of education: 16 Highest education level: Not on file Occupational History 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: [employer] Social Needs Financial resource strain: Not on file Food insecurity: Worry: Not on file Inability: Not on file Transportation needs: Medical: Not on file Non-medical: Not on file Tobacco Use Smoking status: Never Smoker Smokeless tobacco: Never Used Substance and Sexual Activity Alcohol use: No Drug use: No Sexual activity: Never Partners: Male Comment: postmenopausal Lifestyle Physical activity: Days per week: Not on file Minutes per session: Not on file Stress: Not on file Relationships Social connections: Talks on phone: Not on file Gets together: Not on file Attends cheondoism service: Not on file Active member of club or organization: Not on file Attends meetings of clubs or organizations: Not on file Relationship status: Not on file Intimate partner violence: Fear of current or ex partner: Not on file Emotionally abused: Not on file Physically abused: Not on file Forced sexual activity: Not on file Other Topics Concerns: Service: Not Asked Blood Transfusions: No Caffeine Concern: No Occupational Exposure: Not Asked Hobby Hazards: Not Asked Sleep Concern: Not Asked Stress Concern: Not Asked Weight Concern: Not Asked Special Diet: Yes gout and diabetic diet Back Care: Not Asked Exercise: Yes Bike Helmet: Not Asked Seat Belt: Not Asked Self-Exams: Not Asked Social History Narrative Not on file Lives with her and 2 sons 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 Head: Normocephalic, no masses, lesions, tenderness or abnormalities Neck: Supple, no bruits Heart: RRR without murmur, gallop, or rubs. Carotid Auscultation: Without bruits Peripheral Pulses: Normal Neurologic Examination Mental Status: She is alert. She is fully oriented. Attention is intact. Recent and remote memory is intact. Language shows normal naming, comprehension, fluency, and repetition. Praxis is normal. She is anxious, restless. Cranial Nerves: Pupils are equal and reactive to light. Extraocular movements show full and smooth pursuits. No nystagmus. Funduscopic exam shows sharp optic discs and normal vasculature. Visual marlow are full to confrontation. Facial sensation is intact. Facial activation is symmetric. Hearing is intact to conversation. There is no hypomimia. There is no hypophonia. There is no dysarthria. Tongue is midline. Palate elevates symmetrically. Shoulder shrug is normal. Motor: Muscle bulk is normal. Muscle power is full. Mild right hand tremor that resolves with distraction. Spirals with two single strong interjections, otherwise without tremor. Right arm stereotypy that she can suppress. Sensory: Intact to fine touch, temp, and vibration. Reflex: Biceps and brachioradialis is 3+ bilaterally. Patellar reflex 3 to almost 4+ on right, 3+ on left. Ankle jerks 2-3+ bilaterally. Toes are downgoing to plantar stimulation. Coordination: Finger to nose is smooth without ataxia. Gait/station: She can stand from a chair without the use of her arms. Posture is upright. Station is minimally widened. Stride length is normal. Arm swing is normal. Romberg with moderate sway but independent. DATA REVIEWED Actual films/image/tracing reviewed and summarized as follows: n/a Old records reviewed and summarized as follows: A1c 6.2, B12 721, TSH 1.34 Reviewed PCP referral records Assessment/Plan Assessment AND Plan: Mya Gillette is a 63 year old right-handed female with a history of Sydenham's Chorea, anxiety, diabetes, and HTN who presents for evaluation of gait impairment and lifelong twitching with concern for reactivation of chorea. Her examination demonstrates anxiousness with restlessness / stereotypy, distractible right hand tremor, and significant hyper-reflexia. We discussed her presentation. I don't see any evidence of chorea on her exam to make me suspect that chorea has resumed. Her movements are a combination of distractible tremor and akithisia / stereotypy. I don't see major signs of gait dysfunction, though by history she has had falls. With significant hyper-reflexia, I would recommend getting an MRI of the Cervical Spine to rule out myelopathy as cause of her gait dysfunction. Would not suggest testing or treatment for chorea with lack of chorea on exam. She should return to see me in 4 months. Laura Menezes MD [facility] General Normal [facility] Vital Signs Date Time Vital Sign Value Performing Clinician Joellen coreas 11-28-2022 11:040 Body height 165.1 cm DO Mendy Greene Work Phone: [facility] 11-28-2022 11:260400 Body mass index (BMI) [Ratio] 33.3 kg/m2 DO Mendy Ramona Work Phone: [facility] 11-28-2022 11:26-0400 Body temperature 98 [degF] DO Mendy Ramona Work Phone: [facility] 11-28-2022 11:26-0400 Body weight 90.71 kg DO Mendy Ramona Work Phone: [facility] 11-28-2022 11:26-0400 Diastolic blood pressure 64 mm[Hg] DO Mendy Ramona Work Phone: [facility] 11-28-2022 11:26-0400 Heart rate 67 /min DO Mendy Ramona Work Phone: [facility] 11-28-2022 11:26-0400 Respiratory rate 16 /min DO Mendy Gonzaleznger Work Phone: [facility] 11-28-2022 11:26-0400 SaO2% (BldA) [Mass fraction] 100 % DO Mendy Ramona Work Phone: [facility] 11-28-2022 11:26-0400 Systolic blood pressure 122 mm[Hg] DO Mendyzachary Gonzaleznger Work Phone: [facility] 06-18-2022 15:49-0500 Body height 166.5 cm Amena Torres MD Work Phone: [facility] 06-18-2022 15:49-0500 Body weight 94.53 kg Amena Torres MD Work Phone: [facility] 06-18-2022 15:49-0500 Diastolic blood pressure 84 mm[Hg] Amena Torres MD Work Phone: [facility] 06-18-2022 15:49-0500 Systolic blood pressure 146 mm[Hg] Amena Torres MD Work Phone: [facility] Encounters Encounter Date Encounter Type Care Provider Facility Start: 02-16-2025 ambulatory Fish Kiran Facility:[facility] Start: 07-26-2024 End: 09-25-2024 Follow-up encounter Maura [place] LUZ ELENA Work Phone: OB/Gynecology Start: 07-23-2024 End: 07-23-2024 ambulatory PAULETTE SHAY Facility:[facility] Start: 07-23-2024 End: 07-23-2024 Subsequent hospital visit by physician Screen Mammo [facility] Comment on above: Encounter for screen ing mammogram for malignant neoplasm of breast [Z12.31] Start: 06-30-2024 End: 07-02-2024 Telephone encounter Amena Torres MD Work Phone: OB/Gynecology Comment on above: Compound Estrogen Cr eam Start: 06-18-2024 End: 06-22-2024 Refill Amena Torres MD Work Phone: OB/Gynecology Comment on above: Refill Request Start: 06-10-2024 End: 06-10-2024 ambulatory [facility] Facility:[facility] Start: 05-24-2024 End: 05-24-2024 ambulatory [facility] Facility:[facility] Start: 05-17-2024 End: 05-17-2024 Telephone encounter Amena Torres MD Work Phone: OB/Gynecology Comment on above: Orders Start: 04-14-2024 End: 04-14-2024 ambulatory [facility] Facility:[facility] Start: 04-14-2024 End: 04-14-2024 [facility] Facility:[facility] Start: 02-27-2024 End: 02-27-2024 [facility] Facility:[facility] Start: 07-01-2023 End: 07-01-2023 ambulatory DO Mendy Greene Work Phone: [facility] Work Phone: Start: 07-01-2023 End: 07-01-2023 Patient encounter procedure DO Mendy Greene Work Phone: [facility]-Laboratory Work Phone: Start: 06-10-2023 Non-patient / Non-visit DO Bárbara Greene Work Phone: [facility] Start: 06-05-2023 End: 06-05-2023 ambulatory DO Mendy Greene Work Phone: [facility] Work Phone: Start: 06-05-2023 End: 06-05-2023 Patient encounter procedure DO Mendy Greene Work Phone: [facility] Work Phone: Start: 05-28-2023 ambulatory Pratik Canseco MD Work Phone: Internal Medicine [facility] [place] Start: 04-14-2023 Telephone encounter Amena varela MD Work Phone: OB/Gynecology Comment on above: Refill Request Start: 03-27-2023 End: 03-27-2023 ambulatory DO Mendy Greene Work Phone: [facility] Work Phone: Start: 03-27-2023 End: 03-27-2023 Patient encounter procedure DO Mendy Greene Work Phone: [facility] Work Phone: Start: 12-26-2022 End: 12-26-2022 ambulatory DO Mendy Greene Work Phone: [facility] Work Phone: Start: 12-26-2022 End: 12-26-2022 Patient encounter procedure DO Mendy Greene Work Phone: [facility]Labor[facility] Work Phone: Start: 12-16-2022 Non-patient / Non-visit DO Bárbara Greene Work Phone: [facility] Start: 12-16-2022 End: 12-16-2022 ambulatory DO Mendy Greene Work Phone: [facility] Work Phone: Start: 12-16-2022 End: 12-16-2022 Patient encounter procedure DO Mendy Greene Work Phone: [facility] Work Phone: Start: 11-28-2022 End: 11-28-2022 Patient encounter procedure DO Mendy Greene Work Phone: [facility] Work Phone: Start: 11-25-2022 End: 11-25-2022 ambulatory DO Mendy Greene Work Phone: [facility] Work Phone: Start: 11-25-2022 End: 11-25-2022 [facility] encounter [facility] Start: 10-31-2022 End: 10-31-2022 ambulatory DO Mendy Greene Work Phone: [facility] Work Phone: Start: 10-31-2022 End: 10-31-2022 Patient encounter procedure DO Mendy Grenee Work Phone: [facility] Start: 10-24-2022 Non-patient / Non-visit DO Bárbara Greene Work Phone: [facility] Start: 10-24-2022 End: 10-24-2022 Patient encounter procedure DO [facility] Greene [facility] Start: 08-28-2022 End: 08-28-[address] [facility] Work Phone: Start: 08-28-2022 End: 08-28-2022 Patient encounter procedure [facility] Start: 06-18-2022 End: 06-18-2022 Patient encounter procedure Amena Torres MD Work Phone: OB/Gynecology Comment on above: Postmenopausal atrop hic vaginitis (Primary Dx); Encounter for screening mammogram for malignant neoplasm of breast; Encounter for gynecological examination (general) (routine) without abnormal findings Start: 06-18-2022 End: 06-18-2022 Patient encounter status Amena Torres MD Work Phone: OB/Gynecology Start: 05-28-2022 End: 05-28-2022 Patient encounter procedure [facility] Start: 05-17-2022 Refill Catherine Wonglogroopa DUARTEN.MECHANICAL LABORATORY TECHNICIAN Work Phone: Family [facility] Comment on above: Refill Request Start: 04-26-2022 Refill Pratik Canseco MD Work Phone: [facility] Comment on above: Refill Request Start: 03-01-2022 ambulatory Mary Anne Leger RN [facility] Care Management Comment on above: ACM SAI RN ( SPC/SUPD rev. per request [facility]) Start: 02-19-2022 Telephone encounter Trudi walters APRN.MECHANICAL LABORATORY TECHNICIAN Work Phone: OB/Gynecology Comment on above: Refill Request Start: 02-06-2022 Refill Pratik Canseco MD Work Phone: [facility] Comment on above: Refill Request Start: 01-08-2022 Telephone encounter Toño Canseco MD Work Phone: [facility] Comment on above: Diabetes recommendat ion Start: 2021 Refill Catherine Barros APRN.MECHANICAL LABORATORY TECHNICIAN Work Phone: [facility] Comment on above: Refill Request Start: 12-04-2021 End: 12-04-2021 Patient encounter procedure [facility] Start: 11-13-2021 Refill Pratik Canseco MD Work Phone: [facility] Comment on above: Refill Request Start: 11-07-2021 ambulatory [facility] Hart [facility] [place] Comment on above: Population Health Na vigation Outreach ([facility] Care Gaps) Start: 10-25-2021 Refill Pratik Canseco MD Work Phone: [facility] [place] Comment on above: Refill Request Start: 03-26-2021 End: 03-26-2021 Subsequent hospital visit by physician Xr [facility] Work Phone: Radiology Comment on above: Acute pain of right shoulder [M25.511] Procedures Date Procedure Procedure Detail Performing Clinician Start: 06-05-2023 CT angiography of coronary arteries DO Mendy Greene Work Phone: Start: 10-31-2022 Plain X-ray of tibia and fibula DO Mendy Gonzaleznger Work Phone: Start: 10-24-2022 Radiography of ankle DO Mendy Greene Work Phone: Start: 06-20-2021 Mammography Toño Canseco MD Work Phone: Start: 04-18-2021 Colonoscopy Toño Canseco MD Work Phone: Start: 03-26-2021 Radex shoulder compl ete minimum 2 views Catherine Podlogar MATERIAL REQUISITIONER.MECHANICAL LABORATORY TECHNICIAN Work Phone: Start: 03-25-2021 Adult depression screening assessment Pratik Canseco MD Work Phone: Plan of Treatment Date Care Activity Detail Author Start: 01-15-2033 Urine microalbumin profile DTaP,Tdap,Td Vaccine (3 - Td or Tdap) [facility] Start: 04-18-2031 Colonoscopy COLONOSCOPY [facility] Start: 04-18-2031 COLORECTAL CANCER SCREENING COLORECTAL CANCER SCREENING [facility] Start: 04-18-2031 Screening for malign ant neoplasm of colon [facility] Start: 07-23-2025 Screening for malign ant neoplasm of breast Mammogram Screening [facility] Start: 07-23-2024 End: 07-23-2024 Patient encounter procedure 07/23/2024 2:30 PM EST Appointment Mammogram [address] [place] [id number] Mammogram Start: 07-22-2024 End: 07-22-2024 Patient encounter procedure 07/22/2024 9:40 AM EST Office Visit OB/Gynecology [address] [place] [address] Amena Torres MD [address] [place], [place] [address] annual OB/Gynecology Comment on above: annual Start: 07-07-2024 Screening for malign ant neoplasm of breast Mammogram Screening [facility] Start: 06-09-2024 Advance Directive Discussion Advance Directive Discussion [facility] Start: 02-08-2024 Covid-19 Vaccine ( season) Covid-19 Vaccine () [facility] Start: 02-08-2024 Influenza vaccination Influenza Vacc ine (#1) [facility] Start: 06-09-2023 Advance Directive Discussion Advance Directive Discussion [facility] Start: 03-11-2023 ANNUAL PCP TEAM SYSTEMS AUDITOR ADALID DISEASE VISIT ANNUAL PCP TEAM CHRONIC DISEASE VISIT [facility] Start: 02-07-2023 Covid-19 Vaccine () Covid-19 Vaccine () [facility] Start: 02-07-2023 Influenza vaccination Influenza Vacc ine (#1) [facility] Start: 06-21-2022 ANNUAL PCP TEAM SYSTEMS AUDITOR ADALID DISEASE VISIT ANNUAL PCP TEAM CHRONIC DISEASE VISIT [facility] Start: 06-21-2022 BP CONTROLLED (<130/80) BP CONTROLLE D (<130/80) [facility] Start: 06-20-2022 Mammography [facility] Start: 06-20-2022 Screening for malign ant neoplasm of breast Mammogram Screening [facility] Start: 06-09-2022 ADVANCE DIRECTIVE DISCUSSION ADVANCE DIRECTIVE DISCUSSION [facility] Start: 06-09-2022 DEPRESSION ASSESSMENT DEPRESSION ASS ESSMENT [facility] Start: 05-01-2022 Glaucoma screening Dilated Retinal E xam [facility] Start: 05-01-2022 Hepatitis C antibody , confirmatory test DILATED RETINAL EXAM [facility] Start: 03-26-2022 3 comp foot exam completed DIABETIC FOOT EXAM [facility] Start: 03-26-2022 BP CONTROLLED (<130/80) BP CONTROLLE D (<130/80) [facility] Start: 03-26-2022 Diabetic foot examination Diabetic Foot Exam [facility] Start: 03-26-2022 PNEUMOCOCCAL: 65+ (2 - PCV) PNEUMOCOCCAL: 65+ (2 - PCV) [facility] Comment on above: Postponed from 10/04 (Declined at this time) Start: 03-26-2022 PNEUMOVAX AGE 65 AND OVER WITH 5YR LOOKBACK (#1) PNEUMOVAX AGE 65 AND OVER WITH 5YR LOOKBACK (#1) [facility] Comment on above: Postponed from 12/05 (Declined at this time) Start: 03-26-2022 SHINGRIX VACCINE (1 of 2) SHINGRIX VACCINE (1 of 2) [facility] Comment on above: Postponed from 12/05 (Declined at this time) Start: 03-25-2022 Adult depression screening assessment DEPRESSION SCREENING [facility] Start: 02-07-2022 Influenza vaccination [facility] Start: 11-07-2021 End: 01-07-2022 ALBUMIN/CREAT RATIO RND UR ALBUMIN/CREAT RATIO RND UR Lab Routine Controlled type 2 diabetes mellitus without complication, without long-term current use of insulin (HCC) Expected: 11/07/2021, Expires: 01/07/2022 [facility] Work Phone: Comment on above: Expected: 11/07/2021 , Expires: 01/07/2022 Start: 11-07-2021 End: 01-07-2022 CBC panel - Blood by Automated count CBC Lab Routine Controlled type 2 diabetes mellitus without complication, without long-term current use of insulin (HCC) Expected: 11/07/2021, Expires: 01/07/2022 [facility] Work Phone: Comment on above: Expected: 11/07/2021 , Expires: 01/07/2022 Start: 11-07-2021 End: 01-07-2022 Comprehensive metabolic 2000 panel - Serum or Plasma COMP METABOLIC PANEL Lab Routine Controlled type 2 diabetes mellitus without complication, without long-term current use of insulin (HCC) Expected: 11/07/2021, Expires: 01/07/2022 [facility] Work Phone: Comment on above: Expected: 11/07/2021 , Expires: 01/07/2022 Start: 11-07-2021 End: 01-07-2022 Hemoglobin A1c/Hemoglobin.total in Blood HGB A1C Lab Routine Controlled type 2 diabetes mellitus without complication, without long-term current use of insulin (HCC) Expected: 11/07/2021, Expires: 01/07/2022 [facility] Work Phone: Comment on above: Expected: 11/07/2021 , Expires: 01/07/2022 Start: 11-07-2021 End: 01-07-2022 LIPID PANEL, NONFASTING LIPID PANEL, NONFASTING Lab Routine Controlled type 2 diabetes mellitus without complication, without long-term current use of insulin (HCC) Expected: 11/07/2021, Expires: 01/07/2022 [facility] Work Phone: Comment on above: Expected: 11/07/2021 , Expires: 01/07/2022 Start: 11-07-2021 End: 01-07-2022 SCHEDULE LAB TESTING SCHEDULE LAB TESTING Lab Routine Controlled type 2 diabetes mellitus without complication, without long-term current use of insulin ([facility]) Expected: 11/07/2021, Expires: 01/07/2022 [facility] Work Phone: Comment on above: Expected: 11/07/2021 , Expires: 01/07/2022 Start: 09-22-2021 Hemoglobin A1c measurement HbA1C [facility] Start: 09-22-2021 Hemoglobin A1c/Hemoglobin.total in Blood HBA1C [facility] Start: 09-12-2021 COVID-19 VACCINE (4 - Booster for Moderna series) COVID-19 VACCINE (4 - Booster for Moderna series) [facility] Start: 07-14-2021 Hepatitis B screening URINE ALBUMIN:CREATININE RATIO [facility] Start: 07-14-2021 Hepatitis B surface antibody level LDL CHOLESTEROL [facility] Start: 06-09-2021 ADVANCE DIRECTIVE DISCUSSION ADVANCE DIRECTIVE DISCUSSION [facility] Start: 06-09-2021 DEPRESSION ASSESSMENT DEPRESSION ASS ESSMENT [facility] Start: 01-16-2021 Hepatitis C antibody , confirmatory test DILATED RETINAL EXAM [facility] Start: 12-27-2019 Urine microalbumin profile [facility] Start: 2014 Hepatitis B Vaccine (1 of 3 - Risk 3-dose series) Hepatitis B Vaccine (1 of 3 - Risk 3-dose series) [facility] Start: 2014 RSV Vaccine (1 - 1-d ose 60+ series) RSV Vaccine (1 - 1-dose 60+ series) [facility] Start: 10-05-2011 Pneumococcal Vaccine : 50+ (2 of 2 - PCV) Pneumococcal Vaccine: 50+ (2 of 2 - PCV) [facility] Start: 10-05-2011 Pneumococcal Vaccine : 65+ (2 - PCV) Pneumococcal Vaccine: 65+ (2 - PCV) [facility] Start: 10-05-2011 Pneumococcal Vaccine : 65+ (2 of 2 - PCV) Pneumococcal Vaccine: 65+ (2 of 2 - PCV) [facility] Start: 10-05-2011 PNEUMOCOCCAL: 65+ (2 - PCV) PNEUMOCOCCAL: 65+ (2 - PCV) [facility] Start: 07-13-2008 Screening for malign ant neoplasm of colon Sigmoidoscopy [facility] Start: 07-13-2008 SIGMOIDOSCOPY SIGMOIDOSCOPY [facility] Start: 2004 SHINGRIX VACCINE (1 of 2) SHINGRIX VACCINE (1 of 2) [facility] Start: 12-06-1999 COLOGUARD (FIT-DNA) COLOGUARD (FIT-D NA) [facility] Start: 12-06-[address] COLONOGRAPHY [facility] Start: 12-06-1999 FECAL OCCULT BLOOD FECAL OCCULT BLOO D [facility] Start: 12-06-1999 Screening for malign ant neoplasm of colon [facility] Start: 1972 Depression Screening Depression Scre ening [facility] Antibody to lupus La protein measurement [facility] Antibody to SS-A measurement [facility] Centromere protein B Ab [Units/volume] in Serum [facility] Chromatin Ab [Units/volume] in Serum or Plasma [facility] End: 06-16-2025 DBT Breast - bilateral screening COLT SCREENING [facility] Routine Encounter for screening mammogram for malignant neoplasm of breast 1 Occurrences starting 05/17/2024 until 06/16/2025 [facility] Work Phone: Comment on above: 1 Occurrences starti ng 05/17/2024 until 06/16/2025 DBT Breast - bilater al screening COLT SCREENING [facility] Rad[facility] Routine Encounter for screening mammogram for malignant neoplasm of breast 07/23/2024 2:35 PM EST [facility] Work Phone: DNA double strand Ab [Units/volume] in Serum [facility] Aurelia-1 extractable nuc lear Ab [Units/volume] in Serum [facility] End: 07-18-2023 COLT SCREENING [facility] SCREENING Radiology Routine Encounter for screening mammogram for malignant neoplasm of breast 1 Occurrences starting 06/18/2022 until 07/18/2023 [facility] Work Phone: Comment on above: 1 Occurrences starti ng 06/18/2022 until 07/18/2023 End: 06-26-2024 COLT SCREENING COLT SCREENING Radiology Routine Encounter for screening mammogram for breast cancer 1 Occurrences starting 05/28/2023 until 06/26/2024 [facility] Work Phone: Comment on above: 1 Occurrences starti ng 05/28/2023 until 06/26/2024 Nuclear Ab [Presence ] in Serum [facility] SCL-70 extractable nuclear Ab [Units/volume] in Serum by Immunoassay [facility] [place] extractable nuclear Ab [Presence] in Serum [facility] Immunizations Immunization Date Immunization Notes Care Provider Shabnam gill 04-16-2023 influenza virus vaccine, unspecified formulation [facility] Work Phone: [facility] 04-02-2022 influenza virus vaccine, unspecified formulation Amena Torres MD Work Phone: [facility] 03-09-2013 influenza virus vaccine, unspecified formulation Pratik Canseco MD Work Phone: [facility] 10-04-2010 pneumococcal polysaccharide vaccine, 23 valent Pratik Canseco MD Work Phone: [facility] 03-21-2010 influenza virus vaccine, unspecified formulation Pratik Canseco MD Work Phone: [facility] Work Phone: 12-26-2009 tetanus toxoid, redu fran diphtheria toxoid, and acellular pertussis vaccine, adsorbed Pratik Canseco MD Work Phone: [facility] Work Phone: Payers Date Payer Category Payer Self-pay [id number] 2022 Medicare (Managed Care) [employer] HMO [id number] 2022 Unknown [id number] 2022 Medicare [id number] 2019 Medicare UHC AARP MEDICAR E [facility] AARP MEDICARE O [id number] 2019-Present [phone] [address] [address] [place] [address] [facility] [id number] 2019 Medicare [id number] Medicare MEDICARE PART A B [id number] Private Health Insurance [id number] Unknown [id number] Unknown AARP [facility] ADV [id number] Unknown [facility] PACKAGE PLAN [id number] Unknown [id number] Unknown [id number] Unknown [id number] Unknown [id number] Unknown [id number] Unknown [id number] Social History Date Type Detail Facility Start: 03-11-2022 Tobacco smoking stat [facility] Never smoked tobacco [facility] Start: 06-21-2021 End: 07-01-2023 Alcohol intake Current non-drinker of alcohol (finding) [facility] Start: 07-14-2020 End: 03-08-2022 History SDOH Alcohol Frequency 1 [facility] Start: 06-14-2020 History SDOH Alcohol Std Drinks 98 [facility] Start: 11-11-2019 End: 07-14-2020 History SDOH Social Connections Phone 5 [facility] Start: 07-14-2020 History SDOH Social Connections Get Together 3 [facility] Start: 07-14-2020 End: 03-08-2022 History SDOH Social Connections Meetings 2 [facility] Start: 06-14-2019 Education 15 [facility] Start: 1955 Sex Assigned At Not on file [facility] Start: 1955 Sex Assigned At Female [facility] Start: 02-24-2021 End: 02-07-2022 Exposure to SARS-CoV-2 (event) Not sure [facility] Start: 03-11-2022 Tobacco use and exposure Smoke less tobacco non-user [facility] Start: 07-13-2020 End: 07-01-2023 History of Social function [facility] Start: 07-13-2020 End: 07-01-2023 Social connection and isolation panel [facility] Do you belong to any clubs or organizations such as presybeterian groups, unions, fraternal or athletic groups, or school groups? Yes [facility] Are you now , , , , never or living with a partner? [facility] How often to you hav e a drink containing alcohol? Never [facility] Average Number of Drinks Not on file [facility] Work Phone: Do you feel stress - tense, restless, nervous, or anxious, or unable to sleep at night because your mind is troubled all the time - these days [OSQ] Only a little [facility] (I/We) worried sera er (my/our) food would run out before (I/we) got money to buy more. Never true [facility] In the past 12 month s, was there a time when you were not able to pay the mortgage or rent on time? No [facility] Start: 06-20-2023 Gender identity Identifies as female gender (finding) [facility] Medical Equipment Procedure Code Equipment Code Equipment Original Text Equipment Identifier Dates [id number], [id number], [id number] Start: 02-24-2019 End: 2021 Comment on above: Test blood sugar(s) 1x times daily. Dx: Type 2 DM - Controlled E11.9 Insulin: No Test blood sugar(s) once daily. Dx: Type 2 DM - Controlled E11.9 Insulin: No Functional Status Date Assessment Result Facility 01-06-2015 Are you deaf, or do you have serious difficulty hearing No 01/06/2015 3:06 PM [place] Ma No [facility] 01-06-2015 Are you blind, or do you have serious difficulty seeing, even when wearing glasses No 01/06/2015 3:06 PM [place] Ma No [facility] 01-06-2015 Do you have serious difficulty walking or climbing stairs No 01/06/2015 3:06 PM [place] Ma No [facility] 01-06-2015 Do you have difficul ty dressing or bathing No 01/06/2015 3:06 PM EDT [place] [facility] 01-06-2015 Because of a physica l, mental, or emotional condition, do you have difficulty doing errands alone such as visiting a physician's office or shopping No 01/06/2015 3:06 PM [address] [place] Candie Florencia [facility] Mental Status Date Assessment Result Facility 01-06-2015 Because of a physica l, mental, or emotional condition, do you have serious difficulty concentrating, remembering, or making decisions No 01/06/2015 3:06 [address] [place] Candie Florencia [facility] Clinical Notes 03-26-2021 to 07-23-2024 Mark Harvey Mammo Tech - 07/23/2024 2:30 PM ESTTelephone Encounter - Gisela Purvis RN - 07/02/2024 2:55 PM ESTTelephone Encounter - Gisela Purvis RN - 07/02/2024 2:55 PM EST Note Date & Type Note Facility 07-23-2024 History of Presen t illness Narrative Radiology Service Progress Note PATIENT NAME: Mya Gillette DATE OF SERVICE: July 23, 2024 TIME: 3:00 PM PATIENT IDENTITY VERIFICATION COMPLETED USING TWO (2) IDENTIFIERS: Name and Date of confirmed by patient verbally. FALL SCREENING: Has the patient had 2 falls in the last year or 1 fall with injury or currently using an Ambulatory Assistive Device (Walker, Cane, Wheelchair, Crutches, etc.)? No PATIENT GENDER DATA: Assigned female at . status: : No status: NO. PATIENT RELEVANT IMPLANT DATA REVIEWED: Not Applicable PATIENT PRESENTS WITH AN IMPLANTABLE OR ATTACHED BELLMAN: No RADIOLOGY DEPARTMENT: Mammography PERIPHERAL IV DATA: Not applicable SIGNED BY: Kaitlin Ellis July 23, 2024 3:00 PM documented in this encounter [facility] 07-23-2024 Note HNO ID: [id number] Author: MARK HARVEY Mammo Tech Service: ? Author Type: [employer] Supervisor Type: Progress Notes Filed: 07/23/2024 15:01 Note Text: Radiology Service Progress Note PATIENT NAME: Mya Gillette DATE OF SERVICE: July 23, 2024 TIME: 3:00 PM PATIENT IDENTITY VERIFICATION COMPLETED USING TWO (2) IDENTIFIERS: Name and Date of confirmed by patient verbally. FALL SCREENING: Has the patient had 2 falls in the last year or 1 fall with injury or currently using an Ambulatory Assistive Device (Walker, Cane, Wheelchair, Crutches, etc.)? No PATIENT GENDER DATA: Assigned female at . status: : No status: NO. PATIENT RELEVANT IMPLANT DATA REVIEWED: Not Applicable PATIENT PRESENTS WITH AN IMPLANTABLE OR ATTACHED BELLMAN: No RADIOLOGY DEPARTMENT: Mammography PERIPHERAL IV DATA: Not applicable SIGNED BY: Mark Harvey [employer] July 23, 2024 3:00 PM [facility] 07-02-2024 Telephone encount er Note Rx faxed to [facility] Retail pharmacy. Left detailed message on patient's identified voicemail. Gisela Purvis RN [facility] 07-02-2024 Miscellaneous Notes Formattin g of this note might be different from the original. Rx faxed to [facility] Retail pharmacy. Left detailed message on patient's identified voicemail. Gisela Purvis RN Signed Amena Torres MD Patient requesting compound estrogen cream RX to be sent to [facility] retail pharmacy. RX for Premarin cream was sent in error on 06/18/24. Patient has not used that in years. Written RX in [facility] mailbox. Rosenda Cabrales RN documented in this encounter [facility] 07-02-2024 Telephone encount er Note Signed Amena Torres MD [facility] 06-30-2024 Telephone encount er Note Patient requesting compound estrogen cream RX to be sent to [facility] retail pharmacy. RX for Premarin cream was sent in error on 06/18/24. Patient has not used that in years. Written RX in [facility] mailbox. Rosenda Cabrales RN [facility] 06-18-2024 Telephone encount er Note Annual scheduled with [facility] 07/22/24. Requested Prescriptions Pending Prescriptions Disp Refills conjugated estrogens (PREMARIN) vaginal cream 42.5 g 0 Sig: Use 2 g vaginally two times a week. Gisela Purvis RN [facility] 06-18-2024 Miscellaneous Notes Formattin g of this note is different from the original. Annual scheduled with [facility] 07/22/24. Requested Prescriptions Pending Prescriptions Disp Refills conjugated estrogens (PREMARIN) vaginal cream 42.5 g 0 Sig: Use 2 g vaginally two times a week. Gisela Purvis RN documented in this encounter [facility] 05-17-2024 Telephone encount er Note Please file mammogram order. Will then contact Pt to get scheduled. Britni Odonnell RN [facility] 05-17-2024 Miscellaneous Notes Formattin g of this note might be different from the original. Please file mammogram order. Will then contact Pt to get scheduled. Britni Odonnell RN Please place screening mammography order. Patient would be willing to do Reagan if covered by insurance. documented in this encounter [facility] 05-17-2024 Telephone encount er Note Please place screening mammography order. Patient would be willing to do Reagan if covered by insurance. [facility] 04-15-2023 Miscellaneous Notes Formattin g of this note might be different from the original. Form faxed to [facility] Retail pharmacy. Gisela Purvis RN Done Amena Torres MD Last annual with [facility] 06/18/22. Needs compounded estriol vaginal cream to [facility] pharmacy. [facility] form to [facility] to complete and sign. Gisela Purvis RN documented in this encounter [facility] 06-18-2022 History of Presen t illness Narrative Mya is a 66 year old who presents for atrophic vaginitis HPI: She is doing well with vaginal estrogen cream. 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 Last office visit: 03/11/22 F/u scheduled: none Angie Baeza Ma documented in this encounter [facility] 04-26-2022 Miscellaneous Notes Formattin g of this note is different from the original. Patient phones requesting refills as follows: Requested Prescriptions Pending Prescriptions Disp Refills losartan (COZAAR) 25 mg tablet 90 tablet 1 Sig: Take 1 tablet by mouth once daily. HUSSAIN 03/11/2022 NOV No future appointment scheduled Please review and advise. MARÍA Aguilera documented in this encounter [facility] 03-01-2022 History of Presen t illness Narrative ACJo SAI RN Action/FYI: Chart review completed for Medication Adherence - Statin Use in Patients with Cardiovascular Disease at the request of [employer] ([facility]). No statin order noted. No statin exclusionary [...] with Cardiovascular Disease is based on 2013 [place] [employer] Card[employer]/[place] [employer] Association (ACC/AHA) guidelines which recommends moderate to high-intensity statin therapy for prevention of ASCVD events. Patient Attributed To: QAE Payer: [facility] Reason for review or outreach: Medication Adherence Medication Adherence Review Details: Diabetes Summary / Findings: See Above Action Taken: Encounter routed to provider Contact made with patient: No, Chart review only. Signature: Mary Anne Leger RN documented in this encounter [facility] 02-19-2022 Miscellaneous Notes Formattin g of this note might be different from the original. Rx faxed. Bryanna Hopkins RN Written order completed to be faxed. Trudi Andersen APRN.KATTY [facility] Retail Pharmacy calling for refill of compound estradiol cream for patient. Last annual with [facility] 06/15/21. Prescription form to [facility] to complete and sign. Gisela Purvis RN documented in this encounter [facility] 02-06-2022 Miscellaneous Notes Formattin g of this note might be different from the original. Patient is due for routine follow-up. Please [...] with meals. Please review and advise. Loren Day LPN documented in this encounter [facility] 01-08-2022 Miscellaneous Notes Spoke to pharmacy an they verbalized understanding Debra Mccord Ma Yeah I know that. She has been on a statin in the past and refused to go back on it. She has statin declined listed on her PMH. Diandra- pharmacy service associate for , phoned to give recommendation for patient. States it is recommended patient's age 40-75 with diabetes, take a statin medication. documented in this encounter [facility] 2021 Miscellaneous Notes Patient phones requesting refills as follows: Pending Prescriptions Disp Refills ONETOUCH VERIO TEST STRIPS 100 Each 3 Sig: Test blood sugar(s) 1x times daily. Dx: Type 2 DM - Controlled E11.9 Insulin: No RIVERA: No HUSSAIN-06/21/21 Labs-03/24/21 NOV-12/19/21 Please review and advise. Shannon Awad LPN documented in this encounter [facility] 11-13-2021 Miscellaneous Notes Patient has been identified by name and date of : Yes Patient phones for refill(s): Pending Prescriptions Disp Refills TOPIRAMATE 50 MG TABLET 90 tablet 1 Sig: Take 1 tablet by mouth daily at bedtime. RIVERA: No Date of last office visit in primary care: [facility] 06/21/2021 Appointment scheduled for 12/19/2021 Last 2 Encounter Wt Readings: Date: Wt: 06/21/2021 93 kg (205 lb) 06/15/2021 93.4 kg (205 lb 12.8 oz) Please advise. Thank you. MARÍA Cole documented in this encounter [facility] 11-07-2021 History of Presen t illness Narrative Patient was notified Debra Mccord Ma Labs updated and ordered. POPULATION HEALTH NAVIGATION OUTREACH Action/FYI Spoke with patient. Patient is on [facility] for the following HM care gaps: DILATED RETINAL EXAM - Last exam done in April [address] Bijan Cisse. Patient will request the office fax the results to Dr. Canseco. HBA1C - Please file pending order and add any orders required or preferred and notify me when signed so the patient can be informed. ADVANCE DIRECTIVE DISCUSION - Link sent via [employer] as requested. Pt identified by name and : YES, via phone Outreach Outcome/Action Spoke to patient or caregiver: No action required (information or reminder only) Meet My Friends message sent Advance Directives sent Did you use a PCP flex slot to schedule this appointment? N/A Reason for Outreach Care Gap or Scheduling/Wellness visits Payer: Payor: [facility] MEDICARE / Plan: UHC AARP MEDICARE HMO / Product Type: HMO / [...] 2021 8:04 AM documented in this encounter [facility] 10-25-2021 Miscellaneous Notes Patient has been identified by name and date of : Yes Patient phones for refill(s): Pending Prescriptions Disp Refills LOSARTAN 25 MG TABLET 90 tablet 1 Sig: Take 1 tablet by mouth once daily. RIVERA: No Date of last office visit in primary care: 06/21/21 Please advise. Thank you. Lucy Portillo LPN documented in this encounter [facility] 06-29-2021 History of Past i llness Narrative Problem Noted Date Resolved Date Muscle weakness 06/29/2021 07/31/2021 Essential hypertension 05/24/2016 7 Other affections of shoulder region, not elsewhere classified 03/25/2013 10/31/2015 documented as of this encounter (statuses as of 10/25/2021) [address]21-2022 History of Past illness Narrative* Problem Noted Date Resolved Date Muscle weakness 06/29/2021 07/31/2021 Essential hypertension 05/24/2016 7 Other affections of shoulder region, not elsewhere classified 03/25/2013 10/31/2015 documented as of this encounter (statuses as of 11/07/2021) [address]21-2022 History of Past illness Narrative* Problem Noted Date Resolved Date Muscle weakness 06/29/2021 07/31/2021 Essential hypertension 05/24/2016 7 Other affections of shoulder region, not elsewhere classified 03/25/2013 10/31/2015 documented as of this encounter (statuses as of 11/13/2021) [facility] History of Past illness Narrative* Problem Noted Date Resolved Date Muscle weakness 06/29/2021 07/31/2021 Essential hypertension 05/24/2016 7 Other affections of shoulder region, not elsewhere classified 03/25/2013 10/31/2015 documented as of this encounter (statuses as of 2021) [facility] History of Past illness Narrative* Problem Noted Date Resolved Date Muscle weakness 06/29/2021 07/31/2021 Essential hypertension 05/24/2016 7 Other affections of shoulder region, not elsewhere classified 03/25/2013 10/31/2015 documented as of this encounter (statuses as of 01/08/2022) [address]21-2022 History of Past illness Narrative* Problem Noted Date Resolved Date Muscle weakness 06/29/2021 07/31/2021 Essential hypertension 05/24/2016 7 Other affections of shoulder region, not elsewhere classified 03/25/2013 10/31/2015 documented as of this encounter (statuses as of 02/06/2022) [address]21-2022 History of Past illness Narrative* Problem Noted Date Resolved Date Muscle weakness 06/29/2021 07/31/2021 Essential hypertension 05/24/2016 7 Other affections of shoulder region, not elsewhere classified 03/25/2013 10/31/2015 documented as of this encounter (statuses as of 02/19/2022) [address]21-2022 History of Past illness Narrative* Problem Noted Date Resolved Date Muscle weakness 06/29/2021 07/31/2021 Essential hypertension 05/24/2016 7 Other affections of shoulder region, not elsewhere classified 03/25/2013 10/31/2015 documented as of this encounter (statuses as of 04/01/2022) [address]21-2022 History of Past illness Narrative* Problem Noted Date Resolved Date Muscle weakness 06/29/2021 07/31/2021 Essential hypertension 05/24/2016 7 Other affections of shoulder region, not elsewhere classified 03/25/2013 10/31/2015 documented as of this encounter (statuses as of 04/26/2022) [facility] History of Past illness Narrative* Problem Noted Date Resolved Date Muscle weakness 06/29/2021 07/31/2021 Essential hypertension 05/24/2016 7 Other affections of shoulder region, not elsewhere classified 03/25/2013 10/31/2015 documented as of this encounter (statuses as of 05/20/2022) [facility] History of Past illness Narrative* Problem Noted Date Resolved Date Muscle weakness 06/29/2021 07/31/2021 Essential hypertension 05/24/2016 7 Other affections of shoulder region, not elsewhere classified 03/25/2013 10/31/2015 documented as of this encounter (statuses as of 06/19/2022) [address]21-2022 History of Past illness Narrative* Problem Noted Date Diagnosed Date Resolved Date Muscle weakness 06/29/2021 07/31/2021 Essential hypertension 05/24/201612/20 Other affections of shoulder region, not elsewhere classified 03/25/2013 10/31/2015 documented as of this encounter (statuses as of 04/16/2023) [address]21-2022 History of Past illness Narrative* Problem Noted Date Diagnosed Date Resolved Date Muscle weakness 06/29/2021 07/31/2021 Essential hypertension 05/24/201612/20 Other affections of shoulder region, not elsewhere classified 03/25/2013 10/31/2015 documented as of this encounter (statuses as of 06/02/2023) [facility] History of Present illness Narrative* Lidia Fish RT(R) - 03/26/2021 12:20 PM EDT Radiology Service Progress Note PATIENT NAME: Mya Gillette DATE OF SERVICE: March 26, 2021 TIME: 12:18 PM PATIENT IDENTITY VERIFICATION COMPLETED USING TWO (2) IDENTIFIERS: Name and Date of confirmedby patient verbally. FALL SCREENING: Has the patient had 2 falls in the last year or 1 fall with injury or currently using an Ambulatory Assistive Device (Walker, Cane, Wheelchair, Crutches, etc.)? No PATIENT GENDER DATA: Female. status: : No status: NO. PATIENT RELEVANT IMPLANT DATA REVIEWED: Not Applicable RADIOLOGY DEPARTMENT: General X-ray: Exam(s) Completed: Upper Extremity X- Ray(s): Shoulder, AP / TRUE AP / AXILLARY right PERIPHERAL IV DATA: Not applicable SIGNED BY: RT Adelaida(R) March 26, 2021 12:18 PM [facility] Diagnosis Controlled type 2 diabetes mellitus without complication, without long-term current use of insulin (HCC) documented in [facility] encounter [facility] note* Diagnosis Controlled type 2 diabetes mellitus without complication, without long-term current use of insulin (HCC)- [facility]* Diagnosis Migraine without status migrainosus, not intractable, unspecified migraine type documented in [facility] encounter [facility] noteNo assessment information [facility]WSouthview [facility] Work Phone: Evaluation note* Diagnosis Controlled type 2 diabetes mellitus without complication, without long-term current use of insulin (HCC) documented in this encounter [facility] note* Diagnosis Postmenopausal atrophic vaginitis- Primary Encounter for screening mammogram for malignant neoplasm of breast Other screening mammogram Encounter for gynecological examination (general) (routine) without abnormal findings documented in this encounter [facility] note* Diagnosis Onset Date Resolution Status Peripheral vascular disease noneactive [facility] Work Phone: Evaluation note* Diagnosis Encounter for screening mammogram for breast cancer documented in this encounter [facility] note* Diagnosis Acute pain of right shoulder documented in this encounter [facility] note* Diagnosis Encounter for screening mammogram for malignant neoplasm of breast- Primary Other screening mammogram documented in [facility] note* Diagnosis Postmenopausal atrophic vaginitis documented in [facility] note* Diagnosis Encounter for screening mammogram for malignant neoplasm of breast Other screening mammogram documented in this encounter [facility] for referral (narrative)* Diagnostic Procedure Only (Routine) - Pending Review Specialty Diagnoses / Procedures Referred By Ric moore Referred To Contact [facility] Diagnoses Encounter for screening mammogram for malignant neoplasm of breast Procedures COLT SCREENING SCREENING MAMMOGRAPHY BI 2-VIEW BREAST INC CAD Amena Torres MD [address] [place] [address] [facility] [address] [place] [address] Referral ID Status Reason Start Date Expiration Date Visits Requested Visits Authorized [id number] Pending Review Auto-Generat ed Referral 06/18/2022 07/18/2023 1 1 [facility] for referral (narrative)* Diagnostic Procedure Only (Routine) - Pending Review Specialty Diagnoses / Procedures Referred By Contac t Referred To Contact [facility] Diagnoses Encounter for screening mammogram for breast cancer Procedures COLT SCREENING SCREENING MAMMOGRAPHY BI 2-[place] [address] [place] [address] [facility] [address] [place] [address] Referral ID Status Reason Start Date Expiration Date Visits Requested Visits Authorized [id number] Pending Review Auto-Generat ed Referral 06/26/2024 1 1 [facility] for referral (narrative)* Diagnostic Procedure Only (Routine) - Closed Specialty Diagnoses / Procedures Referred By Ric t Referred To Contact [facility] Diagnoses Acute pain of right shoulder Procedures XR SHOULDER GENERAL 3V OR MORE AP/TRUE AP/OTHER RT X-RAY SHOULDER COMPLET MIN 2 VIEWS Catherine Barros APRN.MECHANICAL LABORATORY TECHNICIAN [address] [place] [address] [place] [address] Referral ID Status Reason Start Date Expiration Date V isits Requested Visits Authorized Closed Auto-Generated Referral Financial Clearance Required - OON Payor Patient Cleared - INN Insurance Found 03/26/2021 04/25/2022 1 1 [facility] for referral (narrative)* Diagnostic Procedure Only (Routine) - New Request Specialty Diagnoses / Procedures Referred By Ric moore Referred To Contact [facility] Diagnoses Encounter for screening mammogram for malignant neoplasm of breast Procedures COLT SCREENING W REAGAN SCREENING DIGITAL BREAST TOMOSYNTHESIS BI SCREENING MAMMOGRAPHY BI 2-VIEW BREAST INC CAD Paulette Day MD [address] [place] [address] [facility] [address] [place] [address] Referral ID Status Reason Start Date Expiration Date Visits Requested Visits Authorized [id number] New Request Auto-Generat ed Referral 05/17/2024 06/16/2025 1 1 [facility] for visit Narrative* Diagnostic Procedure Only (Routine) - Closed Specialty Diagnoses / Procedures Referred By Ric moore Referred To Contact [facility] IMAG[facility] Diagnoses Acute pain of right shoulder Procedures XR SHOULDER GENERAL 3V OR MORE AP/TRUE AP/OTHER RT X-RAY SHOULDER COMPLET MIN 2 VIEWS Catherine Barros APRN.MECHANICAL LABORATORY TECHNICIAN [address] [place] [address] [place] [address] Referral ID Status Reason Start Date Expiration Date V isits Requested Visits Authorized Closed Auto-Generated Referral Financial Clearance Required - OON Payor Patient Cleared - INN Insurance Found 03/26/2021 04/25/2022 1 1 [facility] Diagnostic Procedure Only (Routine) - Closed Specialty Diagnoses / Procedures Referred By Ric t Referred To Contact [facility] Diagnoses Encounter for screening mammogram for malignant neoplasm of breast Procedures COLT SCREENING W REAGAN SCREENING DIGITAL BREAST TOMOSYNTHESIS BI SCREENING MAMMOGRAPHY BI 2-VIEW BREAST INC Paulette Lam MD [address] [place] [address] Phone: tel: fax: [facility] [address] [place] [address] Referral ID Status Reason Start Date Expiration Date V isits Requested Visits Authorized [id number] Closed Auto-Generate d Referral 05/17/2024 06/16/2025 1 1 [facility] Summary Purpose Family History No Family History Records Found Relationship Condition Age at Onset Recorded Date/T khadar father Cardiac disease Unknown Cerebrovascular accident (CVA) Unknown mother Cerebrovascular accident (CVA) Unknown grandmother Malignant neoplasm Unknown Kidney disorder Unknown Advance Directives No Advanced Directives Records FoundDocuments on File Type Date Recorded 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 Advance Directive(s) 04/18/2021 7:20 AM Advance Directive(s) 03/30/2021 9:38 AM Chief Complaint and Reason for Visit Chief Complaint EORDER Chief Complaint RULE OUT DVT/ ADD XR AY EORDER- TIB AND FIB- RIGHT LEG - pain, injury FATIGUE,ANEMIA Chief Complaint RULE OUT DVT/ ADD XR AY EORDER- TIB AND FIB- RIGHT LEG - pain, injury FATIGUE,ANEMIA Peripheral vascular disease Peripheral vascular disease, unspecified Reason for Visit Peripheral vascular disease Chief Complaint Peripheral vascular disease, unspecified SEE ORDER Chief Complaint SEE ORDER FAMILY HISTORY OF HEART DISEASE FAMILY HISTORY OF HEART DISEASE Additional Source Comments INFORMATION SOURCE (unrecogn ized section and content) DATE CREATED AUTHOR 07/21/2019 [facility] DATE CREATED AUTHOR AUTHOR'S ORGANIZ ATION 07/26/2024 [facility] DATE CREATED AUTHOR AUTHOR'S ORGANIZ ATION 02/19/2025 [facility] Source Comments (unrecognize d section and content) In the event this informatio n is protected by the Federal Confidentiality of Alcohol and Drug Abuse Patient Records regulations: The Federal rules restrict any use of the information to criminally investigate or prosecute any alcohol or drug abuse patient.[facility] the event this information is protected by the Federal Confidentiality of Alcohol and Drug Abuse Patient Records regulations: The Federal rules restrict any use of the information to criminally investigate or prosecute any alcohol or drug abuse patient.[facility] the event this information is protected by the Federal Confidentiality of Alcohol and Drug Abuse Patient Records regulations: The Federal rules restrict any use of the information to criminally investigate or prosecute any alcohol or drug abuse patient.[facility] Hospital[facility] the event this information is protected by the Federal Confidentiality of Alcohol and Drug Abuse Patient Records regulations: The Federal rules restrict any use of the information to criminally investigate or prosecute any alcohol or drug abuse patient.[facility] Hospital[facility] the event this information is protected by the Federal Confidentiality of Alcohol and Drug Abuse Patient Records regulations: The Federal rules restrict any use of the information to criminally investigate or prosecute any alcohol or drug abuse patient.[facility] Hospital[facility] the event this information is protected by the Federal Confidentiality of Alcohol and Drug Abuse Patient Records regulations: The Federal rules restrict any use of the information to criminally investigate or prosecute any alcohol or drug abuse patient.[facility] Hospital[facility] the event this information is protected by the Federal Confidentiality of Alcohol and Drug Abuse Patient Records regulations: The Federal rules restrict any use of the information to criminally investigate or prosecute any alcohol or drug abuse patient.[facility] HospitalIn the event this information is protected by the Federal Confidentiality of Alcohol and Drug Abuse Patient Records regulations: The Federal rules restrict any use of the information to criminally investigate or prosecute any alcohol or drug abuse patient.[facility] HospitalIn the event this information is protected by the Federal Confidentiality of Alcohol and Drug Abuse Patient Records regulations: The Federal rules restrict any use of the information to criminally investigate or prosecute any alcohol or drug abuse patient.[facility] HospitalIn the event this information is protected by the Federal Confidentiality of Alcohol and Drug Abuse Patient Records regulations: The Federal rules restrict any use of the information to criminally investigate or prosecute any alcohol or drug abuse patient.[facility] HospitalIn the event this information is protected by the Federal Confidentiality of Alcohol and Drug Abuse Patient Records regulations: The Federal rules restrict any use of the information to criminally investigate or prosecute any alcohol or drug abuse patient.[facility] HospitalIn the event this information is protected by the Federal Confidentiality of Alcohol and Drug Abuse Patient Records regulations: The Federal rules restrict any use of the information to criminally investigate or prosecute any alcohol or drug abuse patient.[facility] HospitalIn the event this information is protected by the Federal Confidentiality of Alcohol and Drug Abuse Patient Records regulations: The Federal rules restrict any use of the information to criminally investigate or prosecute any alcohol or drug abuse patient.[facility] HospitalIn the event this information is protected by the Federal Confidentiality of Alcohol and Drug Abuse Patient Records regulations: The Federal rules restrict any use of the information to criminally investigate or prosecute any alcohol or drug abuse patient.[facility] HospitalIn the event this information is protected by the Federal Confidentiality of Alcohol and Drug Abuse Patient Records regulations: The Federal rules restrict any use of the information to criminally investigate or prosecute any alcohol or drug abuse patient.[facility] HospitalIn the event this information is protected by the Federal Confidentiality of Alcohol and Drug Abuse Patient Records regulations: The Federal rules restrict any use of the information to criminally investigate or prosecute any alcohol or drug abuse patient.[facility] HospitalIn the event this information is protected by the Federal Confidentiality of Alcohol and Drug Abuse Patient Records regulations: The Federal rules restrict any use of the information to criminally investigate or prosecute any alcohol or drug abuse patient.[facility] HospitalIn the event this information is protected by the Federal Confidentiality of Alcohol and Drug Abuse Patient Records regulations: The Federal rules restrict any use of the information to criminally investigate or prosecute any alcohol or drug abuse patient.[facility] HospitalIn the event this information is protected by the Federal Confidentiality of Alcohol and Drug Abuse Patient Records regulations: The Federal rules restrict any use of the information to criminally investigate or prosecute any alcohol or drug abuse patient.[facility] Reason for Visit (unrecogniz ed section and content) Reason Onset Date Comments Refill Request 10/25/2021 Reason Onset Date Comments Population Health Navigation Outreach 11/07/2021 [facility] Care Gaps Reason Onset Date Comments Refill Request 11/13/2021 Reason Onset Date Comments Refill Request 2021 Reason Comments Diabetes recommendation Reason Onset Date Comments Refill Request 02/06/2022 Reason Comments Refill Request Reason Onset Date Comments ACM SAI RN 03/01/2022 SPC/SUPD rev. per request [facility] Reason Onset Date Comments Refill Request 04/26/2022 Reason Onset Date Comments Refill Request 05/17/2022 Reason Comments Well Woman Reason Comments Orders Reason Onset Date Comments Refill Request 06/18/2024 Reason Comments Compound Estrogen Cream Care Teams (unrecognized sec tion and content) Primary Care Pediatrician Relationship Specialty Start Date End Date Pratik Canseco MD [address] [facility] [address] PCP - General Family Practice 12/20/16 Primary Care Pediatrician Relationship Specialty Start Date End Date Pratik Canseco MD [address] [facility] [place] [place] [address] PCP - General Family Practice 12/20/16 Primary Care Pediatrician Relationship Specialty Start Date End Date Pratik Canseco MD [address] [facility] [place] [address] PCP - General Family Practice 12/20/16 Primary Care Pediatrician Relationship Specialty Start Date End Date Pratik Canseco MD [address] [facility] [place] [place] [address] PCP - General Family Practice 12/20/16 Primary Care Pediatrician Relationship Specialty Start Date End Date Pratik Canseco MD [address] [facility] [place] [address] PCP - General Family Practice 12/20/16 Primary Care Pediatrician Relationship Specialty Start Date End Date Pratik Canseco MD [address] [facility] [place] [place] [address] PCP - General Family Medicine 12/20/16 Primary Care Pediatrician Relationship Specialty Start Date End Date Pratik Canseco MD [address] [facility] [place] [address] PCP - General Family Medicine 12/20/16 Primary Care Pediatrician Relationship Specialty Start Date End Date Pratik Canseco MD [address] [facility] [address] PCP - General Family Medicine 12/20/16 Team Status: Active Member Role Status Dates Dr. Toño Canseco MD Family Provider Active Mendy Greene DO Primary Care Provider Active Team Status: Inactive Member Role Status Dates Mendy Greene DO Primary Care Provi jessie, Attending Provider, Referring Provider Active Team Status: Active Member Role Status Dates Mendy Greene DO Primary Care Provider Active Dr. Gabriel Mosley MD Attending Provider Active Brandi Tolliver TEACHER SELECTION SPECIALIST, TEACHER SELECTION SPECIALIST-C Referring Provider Active Team Status: Inactive Member Role Status Dates Mendy Greene DO Primary Care Provider Active Brandi Tolliver TEACHER SELECTION SPECIALIST, TEACHER SELECTION SPECIALIST-C Attending Provider, Referring Pro vider Active Team Status: Active Member Role Status Dates Mendy Greene DO Primary Care Provider Active Brandi Tolliver TEACHER SELECTION SPECIALIST, TEACHER SELECTION SPECIALIST-C Attending Provider, Referring Pro vider Active Team Status: Inactive Member Role Status Dates Mendy Greene DO Primary Care Provider Active Dr. Gabriel Mccartney MD Attending Provider, Referrin g Provider Active Team Status: Inactive Member Role Status Dates Mendy Greene DO Primary Care Provider, Referring Provider Active ABELINO Lam Attending Provider Active Team Status: Active Member Role Status Dates Mendy Greene DO Primary Care Provider Active Dr. Behzad Jama MD Attending Provider Active Team Status: Inactive Member Role Status Dates Mendy Greene DO Primary Care Provider Active ABELINO Lam Attending Provider, Referring Provider Active Team Status: Active Member Role Status Dates Mendy Greene DO Primary Care Provider Active Dr. Behzad Jama MD Attending Provider Active ABELINO Nunez Referring Provider Active Team Status: Inactive Member Role Status Dates Mendy Greene DO Primary Care Provider Active ABELINO Nunez Attending Provider, Referring Provid er Active Primary Care Pediatrician Relationship Specialty Start Date End Date Pratik Canseco MD [address] [place] [address] PCP - General Family Medicine 12/20/16 Primary Care Pediatrician Relationship Specialty Start Date End Date Pratik Canseco MD [address] [place] [address] PCP - General Family Medicine 12/20/16 Team Status: Active Member Role Status Dates Mendy Greene DO Primary Care Provi jessie, Referring Provider, Other Provider Active Dr. Paul Dolan MD Attending Provider Active Primary Care Pediatrician Relationship Specialty Start Date End Date Pratik Canseco MD [address] [place] [address] PCP - General Family Medicine 12/20/16 06/30/23 Primary Care Pediatrician Relationship Specialty Start Date End Date Mendy Greene DO PCP - General Family Medicine 07/01/23 Primary Care Pediatrician Relationship Specialty Start Date End Date Mendy Greene DO PCP - General Family Medicine 07/01/23 Primary Care Pediatrician Relationship Specialty Start Date End Date Mendy Greene DO PCP - General Family Medicine 07/01/23 Primary Care Pediatrician Relationship Specialty Start Date End Date Mendy Greene DO PCP - General Family Medicine 07/01/23 Primary Care Pediatrician Relationship Specialty Start Date End Date Mendy Greene DO PCP - General Family Medicine 07/01/23 Goals (unrecognized section and content) Goals may be documented in a n alternate sectionGoals may be documented in an alternate sectionGoals may be documented in an alternate sectionGoals may be documented in an alternate sectionGoals may be documented in an alternate sectionGoals may be documented in an alternate sectionGoals may be documented in an alternate sectionGoals may be documented in an alternate sectionGoals may be documented in an alternate section FOR RECORDS PERTAINING TO PATIENTS WHO ARE [...] BE BASED ON THE PRIMARY CLINICAL RECORDS. [employer] [facility]. provides no warranty or guarantee of the accuracy or completeness of information in this document.
[2025-02-28 18:10] LABS: Hematocrit 40.1 % (37-47); Hemoglobin 13.6 g/dL (12.0-15.0); Immature Granulocytes Count 0.040 X10^3/uL (0.0-0.0); Mean Corp Hgb Conc 33.9 g/dL (32-36); Mean Corpuscular Volume 93.3 fL (81-99); Mean Platelet Vol. 10.1 fl (6.2-12.0); NRBC Flagged by Analyzer 0 % (0-5); Platelet Count 293 K/mm3 (150-450); RBC Distribution Width CV 12.2 % (11.6-14.6); RBC Distribution Width SD 42.0 fl (35.1-43.9); Red Blood Count 4.30 M/mm3 (4.2-5.4); White Blood Count 9.2 K/mm3 (4.4-11.0)
== END | disposition home or self-care (01) ==
PROVIDERS: PCP Family Medicine; Referring Provider Family Medicine; Visit Provider Family Medicine
DX: R53.83 Other fatigue (principal)
CPT/HCPCS: 36415; 84443; 85025